=== PATIENT | female | born 1975 | race Caucasian/White ===

== ENCOUNTER → 2020-07-08 12:37 | Outpatient (REF) | payer MEDICAID, SELFPAY | LOC: HO.SL 12:37 | PROVIDERS: PCP Registered Nurse; Visit Provider Registered Nurse | DX: G47.30 Sleep apnea, unspecified (principal); R06.83 Snoring; E66.01 Morbid (severe) obesity due to excess calories; K21.9 Gastro-esophageal reflux disease without esophagitis | CPT/HCPCS: 95806 ==

== ENCOUNTER 2022-10-16 14:59 | Emergency (ER) | payer MEDICAID, SELFPAY ==
--- NOTE | ~2022-10-16 | CT_ITS ---
EXAMINATION: CT ABDOMEN AND PELVIS WITH CONTRAST CLINICAL INFORMATION: Abdominal pain COMPARISON: 01/19/2019 TECHNIQUE: Multidetector volumetric images were obtained from the superior aspect of the liver through the pubic symphysis following administration 85 mL of Omnipaque 350 intravenous contrast. Sagittal and coronal reformatted images were obtained on the technologist's workstation. Oral contrast: No This CT examination was performed using dose optimization techniques as appropriate, variously including the following: *Automated exposure control *Adjustment of mA and/or kV according to patient size (this includes techniques or standardized protocols for targeted exams where dose is matched to indication/reason for exam; i.e. extremities or head) *Use of iterative reconstruction technique DLP: 756 mGy-cm FINDINGS: LUNG BASES: The visualized lung bases are unremarkable. LIVER, GALLBLADDER, AND BILIARY TREE: The liver is normal in size, shape, and attenuation. No focal hepatic lesion or intrahepatic biliary ductal dilatation is present. Pneumobilia. This is decreased from prior. No ductal filling defect. Cholecystectomy. PANCREAS: Unremarkable. SPLEEN: Unremarkable. ADRENAL GLANDS: Unremarkable. KIDNEYS AND URETERS: The kidneys are normal in size, shape, and attenuation. No hydronephrosis, hydroureter, or calculi seen. No perinephric stranding. BLADDER: Unremarkable. GASTROINTESTINAL TRACT: The small and large bowel are unremarkable. The appendix is unremarkable. ABDOMINAL WALL: No significant hernia is appreciated. LYMPH NODES: Normal. VASCULAR: Normal caliber aorta with mild atherosclerotic calcification. PELVIC VISCERA: Uterus not seen. No adnexal mass. Peripherally enhancing right adnexal follicle. OSSEOUS STRUCTURES: No acute or suspicious osseous abnormality. Advanced degenerative change at L4-L5 with prominent sclerosis. CT/CT abdomen pelvis w IV con IMPRESSION: No acute findings in the abdomen or pelvis. No inflammatory changes. Fleischner guidelines were followed.
--- NOTE | ~2022-10-16 | US_ITS ---
EXAMINATION: US ABDOMEN LIMITED CLINICAL INFORMATION: Right upper quadrant pain. COMPARISON: CT abdomen pelvis 01/19/2019 TECHNIQUE: Real-time imaging of the right upper quadrant abdominal viscera. FINDINGS: PANCREAS: The pancreas appears unremarkable, without masses or ductal dilatation, with the exception of the tail which is obscured by bowel gas. LIVER: The liver is normal in size. The liver contour is normal. Parenchymal echogenicity is normal. No focal hepatic lesion. There is no intrahepatic biliary duct dilatation seen with pneumobilia is present as seen on prior CT exams. GALLBLADDER: Surgically absent. COMMON BILE DUCT: Normal in caliber measuring 1.2 cm in diameter. RIGHT KIDNEY: No hydronephrosis. No renal calculi or focal parenchymal lesions. The kidney measures 10.1 cm in maximum dimension. FREE FLUID: None. US/US abdomen limited IMPRESSION: Status post cholecystectomy. A cause for the patient's right upper quadrant pain has not been found.
[2022-10-16 17:26] VITALS: BP 133/63; PULSE 61; RESP 17; TEMP 36.4; O2SAT 98; BMI 37.4
[2022-10-16 18:30] VITALS: BP 142/69; PULSE 62; RESP 18; TEMP 36.7; O2SAT 98
--- NOTE | 2022-10-16 18:30 | MHC.EDTECH ---
pt blood drawn ,urine sample collected and sent to lab ,vitals sign re check .
[2022-10-16 18:32] LABS: MANUAL DIFF FLAG NO
[2022-10-16 18:43] LABS: UPreg QC Valid YES; Urine Pregnancy NEGATIVE (NEGATIVE)
[2022-10-16 18:46] LABS: Appearance Urine Turbid; Color Urine Orange; Glucose Urine UA Negative (Negative); Leukocyte Esterase Urine Trace (Negative); Nitrite Urine Negative (Negative); PH >= 9.0 (5.0-9.0); Specific Gravity - Urine 1.025 (1.005-1.025); UMIC TRIGGER UACC YES; Urine Blood Large (3+) (Negative); Urine Ketones Negative (Negative); Urine Protein 30 (1+) mg/dL (Neg-Trace)
[2022-10-16 18:49] LABS: Bacteria Urine 1+ (None Seen); Hyaline Casts Urine 0-2 /LPF (0-2); RBC Urine >20 /HPF (0-2); WBC Urine 0-5 /HPF (0-5)
[2022-10-16 18:52] LABS: Alanine Aminotransferase 10 U/L (0-31); Albumin Level 3.8 g/dL (3.5-5.0); Alkaline Phosphatase 61 U/L (39-117); Anion Gap 11 (12-20); Aspartate Amino Transferase 12 U/L (5-31); Bilirubin Direct 0.2 mg/dL (0.0-0.5); Bilirubin Total 0.7 mg/dL (0.0-1.0); Blood Urea Nitrogen 14 mg/dL (9-16); Calcium 8.6 mg/dL (8.4-10.2); Carbon Dioxide 23 mmol/L (22-29); Chloride 111 mmol/L (96-108); Creatinine Clr Calc Pharmacy 111.4; Estimated Glomerular Filt Rate > 60; Glucose Random 109 mg/dL (60-115); Lipase 18 U/L (8-78); Potassium 4.3 mmol/L (3.3-5.1); Sodium 141 mmol/L (135-145); Total Protein 6.9 g/dL (6.5-8.0)
[2022-10-16 19:00] LABS: Basophils Absolute Auto 0.1 X10*3/uL (0.0-0.2); Basophils Percent Auto 0.7 % (0-2); Eosinophils Absolute Auto 0.4 X10*3/uL (0.0-0.4); Eosinophils Percent Auto 4.2 % (0-4); Hematocrit 43.7 % (37.0-47.0); Hemoglobin 14.5 g/dl (12.0-16.0); Imm Gran Abs Auto 0.05 X10*3/uL (0.00-0.03); Imm Gran Pct Auto 0.5 % (0.0-0.4); Mean Corpuscular HGB Conc 33.2 g/dl (31.0-35.0); Mean Corpuscular Hemoglobin 30.6 pg (27.0-33.0); Mean Corpuscular Volume 92.2 fL (80.0-98.0); Mean Platelet Volume 11.2 fL (9.4-12.3); Monocytes Absolute Auto 0.8 X10*3/uL (0.1-1.2); Monocytes Percent Auto 8.3 % (2-11); Neutrophils Absolute Auto 4.1 x10*3/uL (2.0-8.3); Neutrophils Percent Auto 43.3 % (45-73); Platelet Count 193 X10*3/uL (160-400); Red Blood Count 4.74 X10*6/uL (4.20-5.50); Red Cell Distribution Width 12.9 % (11.0-16.0); White Blood Count 9.4 X10*3/uL (4.8-10.8)
--- NOTE | 2022-10-17 03:38 | ED.ABDPAIN ---
HPI - Abdominal Pain General Chief Complaint: Abdominal Pain Stated Complaint: vomiting,right lower quad pain Time Seen by Provider: 10/17/22 03:29 History of Present Illness HPI narrative: Patient is a 47-year-old female presented today with having abdominal pain. The abdominal pain is over the entire abdomen. It is associated with nausea. Generalized malaise. It is worse over the right upper quadrant. Patient is status post cholecystectomy many years ago. Nausea vomiting. It is not related with food intake. No history of bowel obstruction in the past. Patient from home. No chest pain or shortness of breath no diaphoresis. No leg swelling. Related Data Previous Rx's Medication Instructions Recorded ondansetron 4 mg disintegrating 4 mg PO TID PRN nausea and 10/17/22 tablet vomiting 5 days #10 tabs Allergies Allergy/AdvReac Type Severity Reaction Status Date / Time azithromycin [AZITHROMYCIN] Allergy Severe ANGIOEDEMA Unverified 01/29/20 18:19 pork derived (porcine) Allergy Unknown HIVES Unverified 01/29/20 18:19 [PORK DERIVED (PORCINE)] topiramate [From TOPAMAX] Allergy Unknown HIVES Unverified 01/29/20 18:19 tramadol [TRAMADOL] Allergy Unknown CONVULSIONS Unverified 01/29/20 18:19 Review of Systems Review of Systems Positive abdominal pain mainly over the entire abdomen worse in the epigastric area Yes all other systems are reviewed and are negative PMFSH Past Medical History Attestation statement: The following information was validated with the patient. Social History Social History Alcohol intake: never Smoked in Last 30 Days: Yes Use of substances other than those prescribed or required for medical reasons: No Advance Directives: No Advance Directives Information Provided: No Patient : No Physical Exam ED Vital Signs: Vital Signs - 24 hr 10/16/22 17:26 10/16/22 18:30 10/17/22 04:36 Temperature 97.6 F 98.1 F 97.9 F Pulse Rate 61 62 49 L Respiratory Rate 17 18 16 Blood Pressure 133/63 142/69 H 132/81 Pulse Oximetry 98 98 98 Oxygen Delivery Method Room Air Room Air Room Air BMI result Body Mass Index 37.4 Appearance: Alert. Oriented X3. No acute distress. Eyes: Pupils equal, round and reactive to light. ENT: Pharynx normal. Neck: Normal inspection. Neck supple. No lymph nodes noted. No crepitus CVS: Normal heart rate and rhythm. Pulses normal. Normal S1 and S2 Respiratory: No respiratory distress. Breath sounds normal. No Wheezing. No rales Abdomen: Soft and nontender. No rigidity. No distention. good BS x4 Skin: Skin warm and dry. Normal skin color. Normal skin turgor. Extremities: No lower extremity edema. Neurovascular intact to all extremities. No Lacerations. No Rash Neuro: Oriented X 3. No motor deficit. No sensory deficit. Moving all extermities. No slurred speech Medical Decision Making Medical Decision Making [facility] Narrative: Patient complaining of abdominal pain getting worse. Patient's lipase is 18 there is no evidence for pancreatitis. LFTs are normal. Patient's urine showed large amount of RBC but no signs of infection. Her urine test was negative no related issues. CT scan of the abdomen pelvis showed no acute finding no obstruction no abscess no perforation. No diverticulitis no kidney stones. Will discharge patient home. Close follow-up on an outpatient basis. Differential Diagnosis Kidney stone, diverticulitis, biliary issues, obstruction, abscess, perforation Lab Data [facility] Lab Attestation statement: I reviewed the patient's lab results. 10/16/22 18:28 10/16/22 18:28 Labs: Lab Results 10/16/22 10/16/22 10/16/22 Range/Units 18:28 18:28 18:28 WBC 9.4 (4.8-10.8) X10*3/uL RBC 4.74 (4.20-5.50) X10*6/uL Hgb 14.5 (12.0-16.0) g/dl Hct 43.7 (37.0-47.0) % MCV 92.2 (80.0-98.0) fL MCH 30.6 (27.0-33.0) pg MCHC 33.2 (31.0-35.0) g/dl RDW 12.9 (11.0-16.0) % Plt Count 193 (160-400) X10*3/uL MPV 11.2 (9.4-12.3) fL Immature Gran % (Auto) 0.5 H (0.0-0.4) % Neut % (Auto) 43.3 L (45-73) % Lymph % (Auto) 43.0 H (20-40) % [place] % (Auto) 8.3 (2-11) % Eos % (Auto) 4.2 H (0-4) % Baso % (Auto) 0.7 (0-2) % Lymph # (Auto) 4.0 (1.2-4.9) X10*3/uL [place] # (Auto) 0.8 (0.1-1.2) X10*3/uL Eos # (Auto) 0.4 (0.0-0.4) X10*3/uL Baso # (Auto) 0.1 (0.0-0.2) X10*3/uL Abs Immat Gran (auto) 0.05 H (0.00-0.03) X10*3/uL Absolute Neuts (auto) 4.1 (2.0-8.3) x10*3/uL Absolute Nucleated RBC 0.000 (0.0-0.012) X10*3/uL Nucleated RBC % (auto) 0.0 (0.0-0.2) /100WBC Sodium 141 (135-145) mmol/L Potassium 4.3 (3.3-5.1) mmol/L Chloride 111 H (96-108) mmol/L Carbon Dioxide 23 (22-29) mmol/L Anion Gap 11 L (12-20) BUN 14 (9-16) mg/dL Creatinine 0.65 (0.5-1.4) mg/dL Estim Creat Clear Calc 111.4 Estimated GFR > 60 Random Glucose 109 (60-115) mg/dL Calcium 8.6 (8.4-10.2) mg/dL Total Bilirubin 0.7 (0.0-1.0) mg/dL Direct Bilirubin 0.2 (0.0-0.5) mg/dL AST 12 (5-31) U/L ALT 10 (0-31) U/L Alkaline Phosphatase 61 (39-117) U/L Total Protein 6.9 (6.5-8.0) g/dL Albumin 3.8 (3.5-5.0) g/dL Lipase 18 (8-78) U/L Urine Color [place] Urine Appearance Turbid Urine pH >= 9.0 (5.0-9.0) Ur Specific [place] 1.025 (1.005-1.025) Urine Protein 30 (1+) H (Neg-Trace) mg/dL Urine Glucose (UA) Negative (Negative) mg/dL Urine Ketones Negative (Negative) mg/dL Urine Blood Large (3+) H (Negative) Urine Nitrite Negative (Negative) Ur Leukocyte Esterase Trace H (Negative) Urine RBC >20 H (0-2) /HPF Urine WBC 0-5 (0-5) /HPF Ur Squamous Epith Cells 6-10 (0-2) /HPF Urine Bacteria 1+ (None Seen) Hyaline Casts 0-2 (0-2) /LPF Urine Test (NEGATIVE) 10/16/22 Range/Units 18:28 WBC (4.8-10.8) X10*3/uL RBC (4.20-5.50) X10*6/uL Hgb (12.0-16.0) g/dl Hct (37.0-47.0) % MCV (80.0-98.0) fL MCH (27.0-33.0) pg MCHC (31.0-35.0) g/dl RDW (11.0-16.0) % Plt Count (160-400) X10*3/uL MPV (9.4-12.3) fL Immature Gran % (Auto) (0.0-0.4) % Neut % (Auto) (45-73) % Lymph % (Auto) (20-40) % [place] % (Auto) (2-11) % Eos % (Auto) (0-4) % Baso % (Auto) (0-2) % Lymph # (Auto) (1.2-4.9) X10*3/uL [place] # (Auto) (0.1-1.2) X10*3/uL Eos # (Auto) (0.0-0.4) X10*3/uL Baso # (Auto) (0.0-0.2) X10*3/uL Abs Immat Gran (auto) (0.00-0.03) X10*3/uL Absolute Neuts (auto) (2.0-8.3) x10*3/uL Absolute Nucleated RBC (0.0-0.012) X10*3/uL Nucleated RBC % (auto) (0.0-0.2) /100WBC Sodium (135-145) mmol/L Potassium (3.3-5.1) mmol/L Chloride (96-108) mmol/L Carbon Dioxide (22-29) mmol/L Anion Gap (12-20) BUN (9-16) mg/dL Creatinine (0.5-1.4) mg/dL Estim Creat Clear Calc Estimated GFR Random Glucose (60-115) mg/dL Calcium (8.4-10.2) mg/dL Total Bilirubin (0.0-1.0) mg/dL Direct Bilirubin (0.0-0.5) mg/dL AST (5-31) U/L ALT (0-31) U/L Alkaline Phosphatase (39-117) U/L Total Protein (6.5-8.0) g/dL Albumin (3.5-5.0) g/dL Lipase (8-78) U/L Urine Color Urine Appearance Urine pH (5.0-9.0) Ur Specific [place] (1.005-1.025) Urine Protein (Neg-Trace) mg/dL Urine Glucose (UA) (Negative) mg/dL Urine Ketones (Negative) mg/dL Urine Blood (Negative) Urine Nitrite (Negative) Ur Leukocyte Esterase (Negative) Urine RBC (0-2) /HPF Urine WBC (0-5) /HPF Ur Squamous Epith Cells (0-2) /HPF Urine Bacteria (None Seen) Hyaline Casts (0-2) /LPF Urine Test NEGATIVE (NEGATIVE) Medications Administered Discontinued Medications Generic Name Dose Route Start Last Admin Trade Name Freq PRN Reason Stop Dose Admin Hydromorphone HCl 0.5 mg 10/17/22 03:37 10/17/22 03:55 Hydromorphone Hcl 0.5 Mg/0.5 Ml Syringe IVPUSH 10/17/22 03:38 0.5 mg ONCE ONE Administration Protocol Sodium Chloride 1,000 mls @ 999 mls/hr 10/17/22 03:45 10/17/22 07:00 Ns IV 10/17/22 04:45 Infused .Q1H1M IVELISSE Infusion Iohexol 85 ml 10/17/22 06:21 10/17/22 06:22 Iohexol 350 Mg/Ml 100 Ml Infus..Btl IV 10/17/22 06:22 85 ml ONCE ONE Administration Ondansetron HCl 4 mg 10/17/22 03:36 10/17/22 03:54 Ondansetron Hcl 4 Mg/2 Ml Vial IVPUSH 10/17/22 03:37 4 mg ONCE ONE Administration Discharge Plan Discharge Clinical Impression: Abdominal pain Patient Disposition: Home, Self-Care Instructions: Abdominal Pain (ED) Prescriptions: New ondansetron 4 mg tablet,disintegrating 4 mg PO TID PRN (Reason: nausea and vomiting) 5 Days Qty: 10 0RF Referrals: [facility] [Primary Care Provider] - 10/19/22 Stand Alone Forms: Work/School Release
[2022-10-17] MEDS: ondansetron HCL 4 MG/2 ML VIAL IVPUSH (03:54)
[2022-10-17] MEDS: 0.9 % Sodium Chloride 1,000 ML 999 ML IV (03:54)
[2022-10-17] MEDS: HYDROmorphone HCl 0.5 MG/0.5 ML SYRINGE IVPUSH (03:55)
--- NOTE | 2022-10-17 03:58 | PC.NURSE ---
Iv placed and medicated per jul, notified WESTLEY castillo
[2022-10-17 04:36] VITALS: BP 132/81; PULSE 49; RESP 16; TEMP 36.6; O2SAT 98
[2022-10-17] MEDS: iohexoL 350 MG/ML 100 ML INFUS..BTL 85 ML IV (06:22)
[2022-10-17 08:10] VITALS: BP 145/77
== END 2022-10-17 08:09 | disposition home or self-care (01) ==
PROVIDERS: Emergency Medicine; Physician Assistant Medical; Emergency Provider Emergency Medicine Emergency Medical Services
DX: R10.31 Right lower quadrant pain (principal); R11.2 Nausea with vomiting, unspecified
CPT/HCPCS: 36415; 74177; 76705; 80048; 80076; 81001; 81025; 83690; 85025; 96361; 96374; 96375; 99284; J1170; J2405; Q9967

== ENCOUNTER 2022-12-19 11:17 | Outpatient (REF) | payer MEDICAID, SELFPAY ==
[2022-12-19 13:22] LABS: MANUAL DIFF FLAG NO
[2022-12-19 13:58] LABS: Basophils Absolute Auto 0.1 X10*3/uL (0.0-0.2); Basophils Percent Auto 0.9 % (0-2); Eosinophils Absolute Auto 0.2 X10*3/uL (0.0-0.4); Eosinophils Percent Auto 3.6 % (0-4); Hematocrit 43.3 % (37.0-47.0); Imm Gran Abs Auto 0.01 X10*3/uL (0.00-0.03); Imm Gran Pct Auto 0.2 % (0.0-0.4); Lymphocytes Absolute Auto 2.7 X10*3/uL (1.2-4.9); Lymphocytes Percent Auto 42.4 % (20-40); Mean Corpuscular HGB Conc 32.3 g/dl (31.0-35.0); Mean Corpuscular Hemoglobin 30.3 pg (27.0-33.0); Mean Corpuscular Volume 93.7 fL (80.0-98.0); Monocytes Absolute Auto 0.4 X10*3/uL (0.1-1.2); Monocytes Percent Auto 6.4 % (2-11); Neutrophils Percent Auto 46.5 % (45-73); Platelet Count 179 X10*3/uL (160-400); Red Blood Count 4.62 X10*6/uL (4.20-5.50); Red Cell Distribution Width 12.8 % (11.0-16.0); White Blood Count 6.4 X10*3/uL (4.8-10.8)
[2022-12-19 14:15] LABS: Cholesterol 187 mg/dL; HDL Cholesterol 52 mg/dL; LDL Cholesterol Calculated 123 mg/dl; Triglycerides 61 mg/dL
== END 2022-12-19 11:18 | disposition home or self-care (01) ==
LOC: HO.HHCL 11:17
PROVIDERS: Visit Provider Registered Nurse
DX: R00.2 Palpitations (principal); E78.5 Hyperlipidemia, unspecified
CPT/HCPCS: 36415; 80061; 85025

== ENCOUNTER 2023-01-23 16:10 | Outpatient (REF) | payer MEDICAID, SELFPAY ==
--- NOTE | ~2023-01-23 | MM_ITS ---
EXAMINATION: MM SCREENING DIGITAL BREAST TOMOSYNTHESIS, BILATERAL CLINICAL INFORMATION: Screening. Asymptomatic. COMPARISON: Mammography: This is a baseline study TECHNIQUE: Digital breast tomosynthesis is performed in both the craniocaudal and mediolateral oblique views along with computer-aided detection (CAD). Synthesized 2D images are generated from the tomosynthesis. FINDINGS: The breasts are almost entirely fatty (ACR BI-RADS breast composition Category a). There are no significant masses, abnormal calcifications, or other abnormalities. MM/MM tomosynthesis screening BI IMPRESSION: No mammographic evidence of malignancy. ASSESSMENT: BI-RADS BI-RADS 1 - Negative RECOMMENDATION: Routine annual mammography screening. 1 year F/U This examination should not preclude the clinical evaluation of a suspicious palpable abnormality. This patient's information was entered into a reminder system with a target due date for their next mammogram.
== END 2023-01-23 16:11 | disposition home or self-care (01) ==
LOC: HO.MAMMO 16:10
PROVIDERS: PCP Registered Nurse; Visit Provider Registered Nurse
DX: Z12.31 Encounter for screening mammogram for malignant neoplasm of breast (principal)
CPT/HCPCS: 77063; 77067

== ENCOUNTER → 2023-01-23 16:15 | Outpatient (BNV) | payer MEDICAID, SELFPAY | PROVIDERS: PCP Registered Nurse; Visit Provider Radiology Diagnostic Radiology | DX: Z12.31 Encounter for screening mammogram for malignant neoplasm of breast (principal) | CPT/HCPCS: 77063; 77067 ==

== ENCOUNTER 2023-03-24 15:04 | Emergency (ER) | payer SELFPAY ==
--- NOTE | ~2023-03-24 | CT_ITS ---
EXAMINATION: CT HEAD WITHOUT CONTRAST CLINICAL INFORMATION: Headache. COMPARISON: CT head 12/06/2018. TECHNIQUE: Contiguous axial imaging was performed from the skull base to vertex without intravenous administration of contrast. This CT examination was performed using dose optimization techniques as appropriate, variously including the following: *Automated exposure control *Adjustment of mA and/or kV according to patient size (this includes techniques or standardized protocols for targeted exams where dose is matched to indication/reason for exam; i.e. extremities or head) *Use of iterative reconstruction technique DLP: 780 mGy-cm FINDINGS: There is no acute intracranial hemorrhage or abnormal extra-axial collection. No intracranial mass effect or midline shift. Lateral and third ventricles are normal. No hydrocephalus. Boland-white matter differentiation is preserved and there is no evidence of acute territorial infarct. The calvarium and skull base are intact. Mastoid air cells and middle ear cavities are well aerated. No active paranasal sinus disease. Globes and orbits are grossly symmetric. CT/CT head/brain wo IV con IMPRESSION: Normal CT scan of the head.
[2023-03-24 15:26] VITALS: BP 125/81; PULSE 63; RESP 18; TEMP 36.6; O2SAT 98; BMI 37.7
--- NOTE | 2023-03-24 15:27 | ED.WOUNDLAC ---
HPI - Wound/Laceration General Chief Complaint: Wound/Laceration Stated Complaint: laceration forehead Time Seen by Provider: 03/24/23 16:37 Source: patient Mode of arrival: ambulatory Limitations: no limitations History of Present Illness HPI narrative: patient is a 47-year-old female who presents to the emergency department for evaluation after head injury. She states she was getting out of the car when she accidentally struck her head on the door. There was no loss consciousness. She states that since this occurred earlier today she has been having intermittent dizziness and blurred vision. Overall her symptoms have significantly improved, reports mild dizziness most notably if she moves position to fast. She reports localized pain to the laceration on her forehead above the left brow. She denies use of anticoagulants, or known coagulation disorders. Denies neck pain or neck stiffness. Related Data Previous Rx's Medication Instructions Recorded ondansetron 4 mg disintegrating 4 mg PO TID PRN nausea and 10/17/22 tablet vomiting 5 days #10 tabs Allergies Allergy/AdvReac Type Severity Reaction Status Date / Time azithromycin [AZITHROMYCIN] Allergy Severe ANGIOEDEMA Unverified 01/29/20 18:19 pork derived (porcine) Allergy Unknown HIVES Unverified 01/29/20 18:19 [PORK DERIVED (PORCINE)] topiramate [From TOPAMAX] Allergy Unknown HIVES Unverified 01/29/20 18:19 tramadol [TRAMADOL] Allergy Unknown CONVULSIONS Unverified 01/29/20 18:19 Review of Systems Review of Systems: Yes all other systems are reviewed and are negative PMFSH Past Medical History Attestation statement: The following information was validated with the patient. Source: old records reviewed Social History Social History Alcohol intake: never Physical Exam Vital Signs: Vital Signs: Last Vital Signs Temp 97.9 F 03/24/23 15:26 Pulse 63 03/24/23 15:26 Resp 18 03/24/23 15:26 BP 125/81 03/24/23 15:26 Pulse Ox 98 03/24/23 15:26 O2 Del Method Room Air 03/24/23 15:26 BMI result Body Mass Index 37.7 Appearance: Alert.?Oriented to person, place and time. No acute distress.?Normal affect. Head: normocephalic. 2 cm linear superficial laceration to the forhead Eyes: Pupils equal, round and reactive to light.? EOMI. No nystagmus. ENT: Pharynx normal.?? Neck: Normal inspection.? Neck supple.?? CVS: Heart sounds normal. Normal heart rate and rhythm.? Pulses normal.?? Respiratory: No respiratory distress.? Lung sounds clear to auscultation bilaterally?? Abdomen: Soft and non-tender. Normoactive bowel sounds. ?? Skin: Skin warm and dry.? Normal skin color.? Extremities: No lower extremity edema.? Neuro: Moves all extremities spontaneously. Sensation intact bilaterally. CN II-XII intact. No focal neuro deficits. Ambulates with normal steady gait. Course Course Course Narrative: This is a rapid medical exam. deferred additional HPI, ROS, PE to primary provider. 47 yo female with history of HTN, depression, migraines, seizures here with laceration to her forehead from the car door. No LOC. Since injury has had blurry vision/HERNANDEZ. Will obtain CT head. Superficial lac to the head, bleeding controlled. VSS Medical Decision Making Medical Decision Making MDM Narrative: patient is a 47-year-old female who presents to the emergency department for evaluation after a head injury with laceration. Has no focal neurological deficits upon examination, her post injury symptoms have nearly resolved, she is ambulatory with a steady gait. CT of the head is without acute intracranial pathology , not consistent with ICH, SDH. Laceration to the forehead is superficial, not amenable to repair with sutures, skin adhesive applied after cleansing with saline. Reports date of last tetanus vaccination was 3 years ago. Overall she is well-appearing, nontoxic, ambulatory with a steady gait. At this time feel that she is stable for discharge home, outpatient follow-up with her primary care provider as needed. Discussed worrisome signs and symptoms that would warrant re-evaluation in the emergency department. All questions answered. Differential Diagnosis Differential Diagnoses: The differential diagnosis associated with the presentation includes ( as noted above) Independent Interpretation I performed an independent interpretation of an: CT Scan Radiology Impression Discussion of test interpretation with radiology: I have reviewed the radiologist's reading. Radiologist Impression: CT/CT head/brain wo IV con IMPRESSION: Normal CT scan of the head. Independent Historian Clinical information obtained from an independent historian. History obtained from or confirmed by: Other ( daughter present at bedside who confirms history) External Record Review External record reviewed: Outpatient record Prescription Management I considered prescription management with: Pain Medication ( acetaminophen/ibuprofen) Discharge Plan Discharge Clinical Impression: Laceration, Closed head injury Patient Disposition: Home, Self-Care Instructions: Head Injury (ED), Skin Adhesive Care (ED) Prescriptions: No Action ondansetron 4 mg tablet,disintegrating 4 mg PO TID PRN (Reason: nausea and vomiting) 5 Days Qty: 10 0RF Referrals: Heide Priest, [facility] [Primary Care Provider] -
--- OUTSIDE RECORDS SUMMARY | 2023-03-24 17:22 | XMS_ITS | Continuity of Care Document ---
Author Name Unknown Organization [facility] ter Address [address] [place] [id number]- Care Team Providers Care Mission Commander Name Role Phone Rubén DUNLAP, Abel Frazier Primary Care Physician Encounter [facility] [place](s): 01/20/20 - 02/25/[address] [address]- [facility] Attending Physician: Johann Harper MD Admitting Physician: Johann Harper MD Referring Physician: Johann Harper MD Allergies, Adverse Reactions, Alerts Substance Reaction Severity Status azithromycin Anaphylaxis Active Topamax HIVES Active Pork HIVES Active traMADol caused seizures Persistent Severe Active Immunizations Given and Recorded Vaccine Date Status Refusal Reason influenza virus vaccine, inactivated 1 05/26/18 Gi eliud pneumococcal 23-valent vaccine 03/12/11 Given 1Early/Late Reason: Med Not Available Medications Advair Diskus 100 mcg-50 mcg inhalation powder 1, puffs, Inhalation, 2 times a day, # 1 application, Refills 1, Tot. Refills 1, Maintenance, 08/02/18 8:36:15 EDT, Inhaler, Print Requisition Start Date: 08/02/18 Status: Ordered albuterol 0.083% inhalation solution 3 mL = 2.5 mg, Inhalation, Every 6 hours, PRN Wheezing/Shortness of Breath, # 360 mL, 0 Refills, Maintenance, 03/13/11 15:01:20 EDT Start Date: 03/13/11 Status: Ordered cetirizine 10 mg oral capsule 1 capsule = 10 mg, By Mouth, Daily, 0 Refills, Maintenance, 02/09/19 17:55:55 EDT Start Date: 02/09/19 Status: Ordered Duloxetine = 20 mg, By Mouth, Daily at bedtime, 0 Refills, Maintenance, 12/03/18 8:53:39 EDT Start Date: 12/03/18 Status: Ordered Keppra 500 mg oral tablet 1 tablet = 500 mg, By Mouth, 2 times a day, # 60 tablet, 11 Refills, Maintenance, 09/25/19 10:56:00EDT, Tablet, [facility], 155, cm, 02/11/19 7:33:00 EDT, Height, 97.8, kg, 02/09/19 17:43:00 EDT, Dry Weight Start Date: 09/25/19 Stop Date: 09/19/20 Status: Ordered ProAir HFA 90 mcg/inh inhalation aerosol with adapter See Instructions, inhale 2 puffs by mouth every 4 to 6 hours if needed, # 1 each, Refills 1, Tot. Refills 1, Maintenance, 08/02/18 8:35:52 EDT, Instructions Replace Required Details Inhaler, Print Requisition Start Date: 08/02/18 Status: Ordered risperidone 0.5 mg oral tablet 1 tablet = 0.5 mg, By Mouth, Daily in AM, # 14 tablet, 1 Refills, Maintenance, Tablet Start Date: 03/13/11 Stop Date: 04/10/11 Status: Ordered trazodone 50 mg oral tablet 1 tablet = 50 mg, By Mouth, Daily at bedtime, PRN Insomnia, # 14 tablet, 1 Refills, Maintenance, Tablet Start Date: 03/13/11 Stop Date: 04/10/11 Status: Ordered Problem List Condition Effective Dates Status Health Status Inform ant Anxiety and depression(Confirmed) Active Asthma(Confirmed) Active Kidney stones, calcium oxalate(Confirmed) Active Chronic back pain(Confirmed) Active Depression(Confirmed) Active GERD (gastroesophageal reflu x disease)(Confirmed) Active Unstable angina(Confirmed) Active Seizure disorder(Confirmed) Active Social History Social History Type Response Smoking Status 10 or more cigarette s (1/2 pack or more)/day in last 30 days entered on: 05/27/18 Sex Female
--- OUTSIDE RECORDS SUMMARY | 2023-03-24 17:22 | XMS_ITS | Continuity of Care Document ---
Author Name Unknown Organization [facility] Address [address], [address] [place] [address]- Care Team Providers Care Community Engagement Specialist Name Role Phone Rubén DUNLAP, Abel Frazier Primary Care Physician Encounter [facility] Date(s): 12/15/19 - 01/14/20 [facility] [address], [address], [address] [place] [id number]- [facility] Attending Physician: Admcheyanne, [id number] Admitting Physician: Admtr, Ar8 Referring Physician: Admtr, Ar8 Allergies, Adverse Reactions, Alerts Substance Reaction Severity [...] tablet, 11 Refills, Maintenance, 09/25/19 10:56:00EDT, Tablet, [facility], 155, cm, 02/11/19 7:33:00 EDT, Height, [...]
--- OUTSIDE RECORDS SUMMARY | 2023-03-24 17:22 | XMS_ITS | Continuity of Care Document ---
Author Name Unknown Organization [facility] Address [address], [address], [address] [place] [id number]- Care Team Providers Care Tape Edge Machine Operator Name Role Phone Rubén DUNLAP, Abel Frazier Primary Care Physician Encounter [facility] Date(s): 10/04/20 - 11/03/20 [facility] [address], [address], [address] [place] [id number] Attending Physician: Admcheyanne, Paty Admitting Physician: Admtr, [id number] Referring Physician: Admtr, [...] 17:55:55 EDT Start Date: 02/09/19 Status: Ordered Depakote ER 500 mg oral tablet, extended release 2 tablet = 1,000 mg, By Mouth, Daily, # 60 tablet, 11 Refills, Maintenance, 03/08/20 8:48:00 EDT, [facility], 155, cm, 02/11/19 7:33:00 EDT, Height, 97.8, kg, 02/09/19 17:43:00 EDT, Dry Weight Start Date: 03/08/20 Stop Date: 03/03/21 Status: Ordered Duloxetine = 20 mg, By Mouth, Daily at bedtime, 0 Refills, Maintenance, 12/03/18 8:53:39 EDT Start Date: 12/03/18 Status: Ordered Keppra 500 mg oral tablet 1 tablet = 500 mg, By Mouth, 2 times a day, # 60 tablet, 2 Refills, Maintenance, 08/16/20 13:56:00 EDT, Tablet, [facility], 155, cm, 02/11/19 7:33:00 EDT, Height, 97.8, kg, 02/09/19 17:43:00 EDT, Dry Weight Start Date: 08/16/20 Stop Date: 11/14/20 Status: Ordered ProAir HFA 90 mcg/inh inhalation [...]
--- OUTSIDE RECORDS SUMMARY | 2023-03-24 17:22 | XMS_ITS | Continuity of Care Document ---
Author Name Unknown Organization [facility] Address [address] [facility], 3r d Floor, [address] [place] [id number]- Care Team Providers Care Business Operations Manager Name Role Phone Abel Montana MD Primary Care Physician Encounter [facility] [place] Date(s): 07/04/19 - 09/18/19 [facility] [address], 3[address] Floor, [address] [place] [id number]- [facility] Attending Physician: Johann Harper MD Admitting Physician: Johann Harpre MD Referring Physician: Abel Montana MD Allergies, Adverse Reactions, Alerts Substance Reaction [...] 8:53:39 EDT Start Date: 12/03/18 Status: Ordered ProAir HFA 90 mcg/inh inhalation [...] Date: 03/13/11 Stop Date: 04/10/11 Status: Ordered Topamax 50 mg oral tablet See Instructions, 1 tablet By Mouth 2 times a day x 1 week, then 2 bid, # 120 tablet, 11 Refills, Maintenance, 09/04/19 13:10:00 EDT, [facility], 155, cm, 02/11/19 7:33:00 EDT, Height, 97.8, kg, 02/09/19 17:43:00 EDT, Dry Weight Start Date: 09/04/19 Status: Ordered trazodone 50 mg oral tablet [...]
--- OUTSIDE RECORDS SUMMARY | 2023-03-24 17:23 | XMS_ITS | Continuity of Care Document ---
Author Name Unknown Organization [facility] Address [address] [facility], 3r d Floor, [address] [place] [id number]- Care Team Providers Care Cisco Engineer Name Role Phone Abel Montana MD Primary Care Physician Encounter [facility] [place] Date(s): 08/19/19 - 08/26/19 [facility] [address], 3[address], [address] [place] [id number]- [facility] Attending Physician: Johann Harper MD Referring Physician: Abel Montana MD Allergies, [...] Start Date: 02/09/19 Status: Ordered Depakote ER 250 mg oral tablet, extended release 3 tablet = 750 mg, By Mouth, Daily, # 90 tablet, 11 Refills, Maintenance, 08/19/19 9:11:00 EDT, [facility], 155, cm, 02/11/19 7:33:00 EDT, Height, 97.8, kg, 02/09/19 17:43:00 EDT,Dry Weight Start Date: 08/19/19 Stop Date: 08/13/20 Status: Ordered Duloxetine = 20 mg, By Mouth, Daily at bedtime, 0 Refills, Maintenance, 12/03/18 8:53:39 EDT Start Date: 12/03/18 Status: Ordered Keppra 250 mg oral tablet 1 tablet = 250 mg, By Mouth, 2 times a day, Increase Keppra 500mg bid to 750 BID, # 14 tablet, 0 Refills, Maintenance, 07/03/19 19:15:00 EST, Tablet, [facility], 155, cm, 02/11/19 7:33:00 EDT, Height, 97.8, kg, 02/09/19 17:43:00 EDT, Dry... Start Date: 07/03/19 Stop Date: 07/10/19 Status: Ordered Keppra 500 mg oral tablet 1 tablet = 500 mg, By Mouth, 2 times a day, # 14 tablet, 0 Refills, Maintenance, 07/03/19 19:17:00 EST, Tablet, [facility], 155, cm, 02/11/19 7:33:00 EDT, Height, 97.8, kg, 02/09/19 17:43:00 EDT, Dry Weight Start Date: 07/03/19 Stop Date: 07/10/19 Status: Ordered Keppra 500 mg oral tablet = 500 mg, By Mouth, 2 times a day, # 30 tablet, 1 Refills, Maintenance, 12/09/18 12:46:25 EDT, Tablet Start Date: 12/09/18 Stop Date: 02/07/19 Status: Ordered ProAir HFA 90 mcg/inh inhalation [...]
--- OUTSIDE RECORDS SUMMARY | 2023-03-24 17:23 | XMS_ITS | Continuity of Care Document ---
Author Name Unknown Organization [facility] Address [address] [facility], 3r d Floor, [address] [place] [phone]- Care Team Providers Care Mold Filling Operator Name Role Phone Abel Montana MD Primary Care Physician Encounter [facility] [id number] Date(s): 08/19/20 - 11/03/20 [facility] [address], 3[address] Floor, [address] [place] [id number] Attending Physician: Petar Mcgee Admitting Physician: Petar Mcgee Allergies, Adverse Reactions, Alerts Substance Reaction Severity [...] tablet, 11 Refills, Maintenance, 03/08/20 8:48:00 EDT, [facility], 155, cm, 02/11/19 7:33:00 EDT, [...] 2 Refills, Maintenance, 08/16/20 13:56:00 EDT, Tablet, [facility], 155, cm, 02/11/19 7:33:00 EDT, [...]
--- OUTSIDE RECORDS SUMMARY | 2023-03-24 17:23 | XMS_ITS | Continuity of Care Document ---
Author Name Unknown Organization [facility] ter Address [address] [place] [id number]- Care Team Providers Care Computer Support Analyst Name Role Phone Rubén DUNLAP, Abel Frazier Primary Care Physician Encounter [facility] Date(s): 10/01/20 - 12/30/[address] [address] Attending Physician: Johann Harper MD Referring Physician: Johann [...] tablet, 11 Refills, Maintenance, 03/08/20 8:48:00 EDT, [facility], 155, cm, 02/11/19 7:33:00 EDT, [...] day, # 60 tablet, 11 Refills, Maintenance, 12/13/20 10:09:00EDT, Tablet, [facility], 155, cm, 02/11/19 7:33:00 EDT, Height, 97.8, kg, 02/09/19 17:43:00 EDT, Dry Weight Start Date: 12/13/20 Stop Date: 12/08/21 Status: Ordered ProAir HFA 90 mcg/inh inhalation [...]
--- OUTSIDE RECORDS SUMMARY | 2023-03-24 17:23 | XMS_ITS | Continuity of Care Document ---
Author Name Unknown Organization [facility] ter Address [address] [place] [id number]- Care Team Providers Care Supervisor Soakers Name Role Phone Abel Montana MD Primary Care Physician Encounter [facility] Date(s): 07/03/19 - 07/03/[address] [address]- [facility] Encounter Diagnosis Diarrhea(Final) - 07/03/19 Discharge Disposition: A-D/C Home Attending Physician: Eh Lou DO Admitting Physician: Eh Lou DO Referring Physician: Not on Staff, Referring MD Allergies, Adverse Reactions, Alerts Substance Reaction [...] 0 Refills, Maintenance, 07/03/19 19:15:00 EST, Tablet, [facility], 155, cm, 02/11/19 7:33:00 EDT, Height, 97.8, kg, 02/09/19 17:43:00 EDT, Dry... Start Date: 07/03/19 Stop Date: 07/10/19 Status: Ordered Keppra 500 mg oral tablet 1 tablet = 500 mg, By Mouth, 2 times a day, # 14 tablet, 0 Refills, Maintenance, 07/03/19 19:17:00 EST, Tablet, [facility], 155, cm, 02/11/19 7:33:00 EDT, [...] Active Unstable angina(Confirmed) Active Seizure disorder(Confirmed) Active Results Radiology Reports * Exam Date Time Procedure Performing Provider Status 07/03/19 2:39 PM Chest 2 Views Frontal and Lat Alyssa De Los Santos; Auth (Verified) Notes: (Chest 2 Views Frontal and Lat) Reason For Exam: Traumatic Chest Pain;Other: RESULT: Chest 2 Views Frontal and Lat Chest 2 Views Frontal and Lat Refer to EMR; Reason: Other:; Traumatic Chest Pain; Clinical Question(s): Other:; Pneumothorax, Fracture; Hx of Present Illness: Pt coming from home after having a seizure lasting about 10 minutes, witnessed by her family. PT does not recall event. Pt states her last seizure was yesterday.; Other Objective Findings: Patient lethargic but oriented x 4. Speaking full clear sentences. Pt slightly COMPARISON: 02/09/2019 FINDINGS: LINES AND TUBES: None. LUNGS AND PLEURA: Clear lungs. Normal pulmonary vascularity. No pleural effusion. No pneumothorax. HEART, MEDIASTINUM AND SIDRA: Heart is normal in size. Normal mediastinal and hilar contour. BONES AND SOFT TISSUES: No acute abnormality. IMPRESSION: Normal chest. WSN: [id number] Dictated By: Sathish Cintron MD Dictated Date/Time: 07/03/19 2:48 pm Reviewed By: Sathish Cintron MD Signed By: Sathish Cintron MD Signed Date/Time: 07/03/19 2:48 pm Transcribed By: ADOLFO Transcribed Date/Time: 07/03/19 2:48 pm Vital Signs Most recent to oldest [Reference Range]: 1 2 Oxygen Saturation [94-100 %] 100 % (07/03/19 3:37 PM) 100 % (07/03/19 1:06 PM) Pulse Rate [55-90 bpm] 57 bpm (07/03/19 3:37 PM) 57 bpm (07/03/19 1:06 PM) Blood Pressure [90-138/55-84 mm Hg] 147/ 73mm Hg *H* (07/03/19 3:37 PM) 145/69mm Hg *H* (07/03/19 1:06 PM) Respiratory Rate [16-30 br/min] 18 br/mi n (07/03/19 3:37 PM) 16 br/min (07/03/19 1:06 PM) Temperature [96.8-100.4 DegF] 97.8 DegF (07/03/19 1:06 PM) Mode of Delivery (Oxygen) Room air (07/03/19 3:37 PM) Room air (07/03/19 1:06 PM) Blood pressure sites Arm, right (07/03/19 3:37 PM) Arm, right (07/03/19 1:06 PM) Temperature Route Oral (07/03/19 1:06 PM) Social History Social History Type Response Smoking Status 10 or more cigarette s (1/2 pack or more)/day in last 30 days entered on: 05/27/18 Sex Female
== END 2023-03-24 18:02 | disposition home or self-care (01) ==
PROVIDERS: Emergency Provider Student in an Organized Health Care Education/Training Program; PCP Registered Nurse
DX: S01.81XA Laceration without foreign body of other part of head, initial encounter (principal); S09.90XA Unspecified injury of head, initial encounter; W22.8XXA Striking against or struck by other objects, initial encounter; Y93.89 Activity, other specified; Y92.810 Car as the place of occurrence of the external cause; Y99.9 Unspecified external cause status
CPT/HCPCS: 70450; 99283; 99284

== ENCOUNTER 2023-05-22 00:14 | Emergency (ER) | payer OTHER, SELFPAY ==
--- NOTE | 2023-05-22 | ECG_ITS ---
Test Reason : CHEST PAIN Blood Pressure : / mmHG Vent. Rate : 048 BPM Atrial Rate : 048 BPM P-R Int : 160 ms QRS Dur : 078 ms QT Int : 462 ms P-R-T Axes : 041 031 048 degrees QTc Int : 412 ms Sinus bradycardia Otherwise normal ECG When compared with ECG of 07-DEC-2018 08:31, No significant change was found Referred By: Generic ED Physician Electronically Signed By:TYRONE BECERRA MD
--- NOTE | ~2023-05-22 | XR_ITS ---
EXAMINATION: XR CHEST, 2 VIEWS CLINICAL INFORMATION: Chest pain. COMPARISON: 01/20/2020 TECHNIQUE: PA and lateral views of the chest were obtained. FINDINGS: Subtle linear opacities at the bases are favored to correspond atelectasis. Mild consolidation at the right lung base cannot be excluded. No pneumothorax or pleural effusion. Cardiac and mediastinal contours are normal. Pulmonary vasculature is unremarkable. Cholecystectomy clips in the right upper quadrant no acute osseous findings. XR/XR chest 2V IMPRESSION: Linear opacities at the lung bases are favored to correspond to atelectasis. Mild consolidation at the right lung base cannot be excluded.
[2023-05-22 00:27] VITALS: BP 130/64; BP 140/90; PULSE 50; PULSE 56; RESP 14; O2SAT 100; O2SAT 98; BMI 40.0
[2023-05-22 00:33] VITALS: BP 130/64; PULSE 56; RESP 14; O2SAT 98
--- NOTE | 2023-05-22 00:35 | PC.NURSE ---
Pt presents to ED via EMS for evaluation of chest pain that started around 5:00 tonight when pt got home from work. Pt denies SOB, endorses nausea and pain radiating to the left shoulder. Pt is A&Ox4, GCS 15, with warm dry skin. States she is normally an every day smoker (cigarette and marijuana) but today didn't feel like it and hasn't smoked all day. Pt stated this is not something she regularly does. Pt took 2 baby aspirin around 6:00, pain continued and pt called 911 who instructed her to take 4 more baby aspirin. EMS placed a 20g IV in the left hand, gave 0.4mg nitroglycerin and approx 250mL Normal Saline. Pt is attached to nuclear monitoring technician, EKG obtained. Labs are being drawn now and pt is waiting ED provider.
[2023-05-22 00:42] LABS: MANUAL DIFF FLAG NO
[2023-05-22 00:45] LABS: Basophils Absolute Auto 0.1 X10*3/uL (0.0-0.2); Basophils Percent Auto 0.8 % (0-2); Eosinophils Absolute Auto 0.3 X10*3/uL (0.0-0.4); Eosinophils Percent Auto 3.4 % (0-4); Hematocrit 42.6 % (37.0-47.0); Hemoglobin 13.9 g/dl (12.0-16.0); Imm Gran Abs Auto 0.01 X10*3/uL (0.00-0.03); Imm Gran Pct Auto 0.1 % (0.0-0.4); Lymphocytes Absolute Auto 3.2 X10*3/uL (1.2-4.9); Lymphocytes Percent Auto 42.1 % (20-40); Mean Corpuscular HGB Conc 32.6 g/dl (31.0-35.0); Mean Platelet Volume 10.4 fL (9.4-12.3); Monocytes Absolute Auto 0.7 X10*3/uL (0.1-1.2); Monocytes Percent Auto 8.6 % (2-11); Neutrophils Absolute Auto 3.4 x10*3/uL (2.0-8.3); Platelet Count 181 X10*3/uL (160-400); Red Blood Count 4.63 X10*6/uL (4.20-5.50); Red Cell Distribution Width 12.8 % (11.0-16.0); White Blood Count 7.6 X10*3/uL (4.8-10.8)
[2023-05-22 00:54] LABS: Anion Gap 11 (12-20); Blood Urea Nitrogen 19 mg/dL (9-16); Calcium 8.9 mg/dL (8.4-10.2); Carbon Dioxide 24 mmol/L (22-29); Chloride 110 mmol/L (96-108); Creatinine Clr Calc Pharmacy 97.8; Estimated Glomerular Filt Rate > 60; Glucose Random 100 mg/dL (60-115); Potassium 3.9 mmol/L (3.3-5.1); Sodium 141 mmol/L (135-145)
[2023-05-22 01:04] LABS: Troponin-I High Sensitivity < 2.7 ng/L (<3.5-17.0)
--- NOTE | 2023-05-22 01:10 | ED_ITS ---
HPI - Chest Pain General Chief Complaint: Chest Pain Stated Complaint: CHEST PAIN Time Seen by Provider: 05/22/23 01:03 Source: patient Mode of arrival: EMS Limitations: no limitations History of Present Illness HPI narrative: patient is a 47-year-old female who presents emergency department for evaluation chest pain. She reports sudden onset of pain to the left anterior chest midclavicular line at approximately her 17:00 described as a stabbing sensation. The pain radiates upward to the left shoulder and proximal arm. Pain has been constant since its onset. She denies any exacerbating or alleviating factors. She took for baby aspirin prior to arrival. EMS administered nitro sublingual which she reports pain no change in her chest pain. She denies associated dizziness, lightheadedness, URI symptoms, cough, shortness of breath, back pain, nausea, vomiting, abdominal pain, numbness or tingling of her extremities. She does report history of hypertension depression and migraine headaches. When asked about family history she reports her dad of sudden at age 50 and her mother suffered from a massive heart attack at the age of 45. Related Data Previous Rx's Medication Instructions Recorded ondansetron 4 mg disintegrating 4 mg PO TID PRN nausea and 10/17/22 tablet vomiting 5 days #10 tabs Allergies Allergy/AdvReac Type Severity Reaction Status Date / Time azithromycin [AZITHROMYCIN] Allergy Severe ANGIOEDEMA Unverified 01/29/20 18:19 pork derived (porcine) Allergy Unknown HIVES Unverified 01/29/20 18:19 [PORK DERIVED (PORCINE)] topiramate [From TOPAMAX] Allergy Unknown HIVES Unverified 01/29/20 18:19 tramadol [TRAMADOL] Allergy Unknown CONVULSIONS Unverified 01/29/20 18:19 Review of Systems 2 Review of Systems: Yes all other systems are reviewed and are negative PMFSH Past Medical History Attestation statement: The following information was validated with the patient. Source: old records reviewed Onset Date is defined in the Problem List Problems that require an onset date and time if occurred within 24 hrs of arrival to the ED Aortic Dissection and Rupture; Neurologic impairment; Cardiopulmonary Arrest; Endotracheal Intubation; Insertion or Replacement of Mechanical Circulatory Assist Device Social History Social History Alcohol intake: never Smoked in Last 30 Days: Yes Use of substances other than those prescribed or required for medical reasons: Yes Substance Use Type: Marijuana Substance Use Frequency: Daily Advance Directives: No Advance Directives Information Provided: Yes Patient : No Physical Exam 2 Vital Signs: Vital Signs: Last Vital Signs Temp 98.5 F 05/22/23 02:17 Pulse 55 05/22/23 04:03 Resp 14 05/22/23 04:03 BP 131/66 05/22/23 04:03 Pulse Ox 99 05/22/23 04:03 O2 Del Method Room Air 05/22/23 04:03 BMI result Body Mass Index 40.0 Appearance: Alert.?Oriented to person, place and time. No acute distress.?Normal affect. Eyes: Pupils equal, round and reactive to light.? ENT: Pharynx normal.?? Neck: Normal inspection.? Neck supple.?? CVS: Heart sounds normal. Normal heart rate and rhythm.? Pulses normal.?? Respiratory: No respiratory distress.? Lung sounds clear to auscultation bilaterally?? Abdomen: Soft and non-tender. Normoactive bowel sounds. No pulsatile mass.?? Skin: Skin warm and dry.? Normal skin color.? ?? Extremities: No lower extremity edema.? Neuro: Moves all extremities spontaneously. Sensation intact bilaterally. CN II- XII intact. No focal neuro deficits. Ambulates with normal steady gait. Course Reevaluation(s) Reevaluation #1: Patient signed out to ED attending Dr. Patton pending repeat troponin and re- evaluation Time: 01:54 Medications Administered Discontinued Medications Generic Name Dose Route Start Last Admin Trade Name Edmond PRN Reason Stop Dose Admin Al Hydroxide/Mg Hydroxide 30 ml 05/22/23 01:22 05/22/23 02:10 Magnesium Hydrox/Alum Hydrox 30 Ml Oral.Susp PO 05/22/23 01:23 30 ml ONCE ONE Administration Famotidine 20 mg 05/22/23 01:22 05/22/23 02:10 Famotidine 20 Mg Tablet PO 05/22/23 01:23 20 mg ONCE ONE Administration Lidocaine HCl 15 ml 05/22/23 01:22 05/22/23 02:10 Lidocaine Hcl Viscous 2 % 15 Ml Solution MUCOUS MEM 05/22/23 01:23 15 ml ONCE ONE Administration Medical Decision Making Medical Decision Making MDM Narrative: Patient is a 47-year-old woman with past medical history of hypertension depression migraines presented to emergency department for evaluation of chest pain as per HPI. At this time examination she appears overall well, nontoxic. No respiratory distress; No hypoxia or tachypnea. She is speaking clear full sentences. Chest pain normal reproducible, radiating to the shoulder. Unchanged with aspirin and nitro. Given she reports pain originating in the left lower chest/mid clavicular region will attempt GI cocktail. Will obtain CBC to evaluate for leukocytosis/ anemia, CMP and lipase to evaluate for abnormal electrolytes /abnormal renal function/ abnormal hepatic/biliary function, EKG and troponin to evaluate for ischemia/ACS. Chest x-ray to evaluate for consolidation/ infiltrate/ mass/ pulmonary congestion Two sets of cardiac enzyme was negative. Patient not in any acute distress. My interpretation of patient's EKG showed a sinus rhythm heart rate is 50 AK QRS QTC within normal limits is no acute ST segment elevation. Patient's pain atypical. She is 47 years old. She does have a history of hypertension. Her heart score so less than 3. Patient's chest x-ray was done. There is no evidence of pneumonia pneumothorax. Patient's history not consistent with PE. Will discharge patient home. Currently in stable condition. Differential Diagnosis Differential Diagnoses: The differential diagnosis associated with the presentation includes ( ACS, muscular pain, pleurisy, GERD, atypical chest pain) Admission/Observation Consideration of admission/observation: Escalation of care including admission/observation considered ( see narrative above and course narrative for further detail) Lab Data [facility] Lab Attestation statement: I reviewed the patient's lab results. CBC is without leukocytosis or anemia overall unremarkable. CMP and lipase overall unremarkable. High sensitive troponin below detectable limits. 05/22/23 00:38 05/22/23 00:38 Labs: Lab Results 05/22/23 05/22/23 Range/Units 00:38 03:35 WBC 7.6 (4.8-10.8) X10*3/uL RBC 4.63 (4.20-5.50) X10*6/uL Hgb 13.9 (12.0-16.0) g/dl Hct 42.6 (37.0-47.0) % MCV 92.0 (80.0-98.0) fL MCH 30.0 (27.0-33.0) pg MCHC 32.6 (31.0-35.0) g/dl RDW 12.8 (11.0-16.0) % Plt Count 181 (160-400) X10*3/uL MPV 10.4 (9.4-12.3) fL Immature Gran % (Auto) 0.1 (0.0-0.4) % Neut % (Auto) 45.0 (45-73) % Lymph % (Auto) 42.1 H (20-40) % [place] % (Auto) 8.6 (2-11) % Eos % (Auto) 3.4 (0-4) % Baso % (Auto) 0.8 (0-2) % Lymph # (Auto) 3.2 (1.2-4.9) X10*3/uL [place] # (Auto) 0.7 (0.1-1.2) X10*3/uL Eos # (Auto) 0.3 (0.0-0.4) X10*3/uL Baso # (Auto) 0.1 (0.0-0.2) X10*3/uL Abs Immat Gran (auto) 0.01 (0.00-0.03) X10*3/uL Absolute Neuts (auto) 3.4 (2.0-8.3) x10*3/uL Absolute Nucleated RBC 0.000 (0.0-0.012) X10*3/uL Nucleated RBC % (auto) 0.0 (0.0-0.2) /100WBC Sodium 141 (135-145) mmol/L Potassium 3.9 (3.3-5.1) mmol/L Chloride 110 H (96-108) mmol/L Carbon Dioxide 24 (22-29) mmol/L Anion Gap 11 L (12-20) BUN 19 H (9-16) mg/dL Creatinine 0.77 (0.5-1.4) mg/dL Estim Creat Clear Calc 97.8 Estimated GFR > 60 Random Glucose 100 (60-115) mg/dL Calcium 8.9 (8.4-10.2) mg/dL Total Bilirubin 0.6 (0.0-1.0) mg/dL Direct Bilirubin 0.2 (0.0-0.5) mg/dL AST 16 (5-31) U/L ALT 15 (0-31) U/L Alkaline Phosphatase 48 (39-117) U/L Troponin I High Sens < 2.7 < 2.7 (<3.5-17.0) ng/L Total Protein 6.8 (6.5-8.0) g/dL Albumin 3.7 (3.5-5.0) g/dL Lipase 14 (8-78) U/L Independent Interpretation I performed an independent interpretation of an: EKG and Plain X-Ray (Grossly negative) Interpretation: Rate: 48 Rhythm:? sinus bradycardia [place]:? normal Normal P waves.? Normal RO.?? Normal QRS complex.?? ST T wave :?? no ST elevation, no ST depression, no T-wave inversion qTC:412 The study has been interpreted contemporaneously by me. Radiology Impression Discussion of test interpretation with radiology: I have reviewed the radiologist's reading. Independent Historian Clinical information obtained from an independent historian. History obtained from or confirmed by: EMS Chronic Conditions Patient?s care impacted by: Hypertension Discharge Plan Discharge Clinical Impression: Chest pain Patient Disposition: Home, Self-Care Instructions: Chest Pain (DC) Prescriptions: No Action ondansetron 4 mg tablet,disintegrating 4 mg PO TID PRN (Reason: nausea and vomiting) 5 Days Qty: 10 0RF Referrals: Donny Kathleen MD [Physician] - 05/24/23
[2023-05-22 01:26] LABS: Alanine Aminotransferase 15 U/L (0-31); Albumin Level 3.7 g/dL (3.5-5.0); Alkaline Phosphatase 48 U/L (39-117); Aspartate Amino Transferase 16 U/L (5-31); Bilirubin Direct 0.2 mg/dL (0.0-0.5); Bilirubin Total 0.6 mg/dL (0.0-1.0); Lipase 14 U/L (8-78); Total Protein 6.8 g/dL (6.5-8.0)
[2023-05-22] MEDS: Famotidine 20 MG TABLET PO (02:10)
[2023-05-22] MEDS: Lidocaine HCl Viscous 2 % 15 ML SOLUTION MUCOUS MEM (02:10)
[2023-05-22] MEDS: Magnesium Hydrox/Alum Hydrox 30 ML ORAL.SUSP PO (02:10)
[2023-05-22 02:17] VITALS: BP 118/76; PULSE 47; RESP 14; TEMP 36.9; O2SAT 98
[2023-05-22 04:03] VITALS: BP 131/66; PULSE 55; RESP 14; O2SAT 99
[2023-05-22 04:04] LABS: Troponin-I High Sensitivity < 2.7 ng/L (<3.5-17.0)
== END 2023-05-22 05:20 | disposition home or self-care (01) ==
PROVIDERS: Nurse Practitioner Family; Emergency Provider Emergency Medicine Emergency Medical Services
DX: R07.89 Other chest pain (principal); R00.1 Bradycardia, unspecified; Z79.899 Other long term (current) drug therapy
CPT/HCPCS: 36415; 71046; 80048; 80076; 83690; 84484; 85025; 93005; 99283; 99285

== ENCOUNTER → 2023-05-22 00:23 | Outpatient (BNV) | payer OTHER, SELFPAY | PROVIDERS: Emergency Provider Emergency Medicine Emergency Medical Services; Visit Provider Internal Medicine Cardiovascular Disease | DX: R00.1 Bradycardia, unspecified (principal) | CPT/HCPCS: 93010 ==

== ENCOUNTER 2023-05-24 11:21 | Outpatient (AMB) | payer OTHER, SELFPAY ==
--- NOTE | 2023-05-24 11:25 | MHC.OFFVIS ---
Intake Vital Signs 05/24/23 11:26 Height 5 ft 1 in Weight 197 lb 8.547 oz BMI 37.3 BP 130/88 Blood Pressure Location Lt brachial Position Sitting Pulse 60 Intake Visit Reasons: NPV/Palpitations/HHC/F. Cem Intake Note: NPV [employer] Barrier Attendant Required: No Accompanied by: Self / Same As Patient Allergies azithromycin [AZITHROMYCIN] Allergy (Severe, Verified 05/24/23 11:26) ANGIOEDEMA pork derived (porcine) [PORK DERIVED (PORCINE)] Allergy (Unknown, Verified 05/24/23 11:) HIVES topiramate [From TOPAMAX] Allergy (Unknown, Verified 05/24/23 11:) HIVES tramadol [TRAMADOL] Allergy (Unknown, Verified 05/24/23 11:) CONVULSIONS Medication List - Last Reconciled 05/24/23 by Avelino Arechiga MD albuterol sulfate 90 mcg/actuation (Ventolin HFA) 2 puffs inhalation Q4-6H PRN buprenorphine-naloxone 8-2 mg (Suboxone) 20 mg sublingual QAM hydroxyzine HCl 50 mg PO QID PRN levetiracetam 500 mg PO BID lisinopril 5 mg PO DAILY ondansetron 4 mg PO TID PRN 5 days HPI HPI Comments History of Present Illness Details Bri is here for consultation regarding chest pain. No history of any coronary disease, myocardial infarction or cardiomyopathy or in fact any other cardiac issues in the past. Recently, she states that she was developing left-sided chest pain. Per ER note, described as stabbing sensation. Then apparently went to left arm and left shoulder. Somewhat of constant pain. However, upon her description today some pleuritic patterns as well. Overall, seems very nonspecific and doubt if it is truly anginal. Any case, she is concerned as there is strong family history of cardiac issues in both her mother and father at a relatively young age. Otherwise, she seems to overweight but no major comorbidities listed. [facility]LY [facility] Medical History (Updated 05/24/23 @ 11:59 by Avelino Arechiga MD) Essential hypertension Surgical History (Updated 05/24/23 @ 11:29 by Jackie Ann) No pertinent past surgical history Family History (Updated 05/24/23 @ 11:57 by Avelino Aerchiga MD) Mother Myocardial infarction Father Myocardial infarction Social History Alcohol intake: never Substance Use Type: Marijuana Review of Systems Const Denies chills, Denies daytime sleepiness, Denies fatigue, Denies fever(s), Denies frequent falls, Denies night sweats, Denies snoring, Denies weakness, Denies weight gain and Denies weight loss Eyes Denies loss of vision ENT Denies dizziness and Denies hearing loss Card Denies chest pain with activity, Denies syncope, Denies rapid heart rate, Denies edema, Denies claudication, Denies leg edema, Denies lightheadedness, Denies dyspnea, Denies dyspnea on exertion and Denies orthopnea Resp Denies cough, Denies excessive phlegm production, Denies dyspnea, Denies dyspnea on exertion, Denies snoring and Denies wheezing GI Denies abdominal pain, Denies hematochezia, Denies change in bowel habits, Denies change in stool character, Denies heartburn, Denies nausea and Denies vomiting Denies hematuria, Denies urinary frequency and Denies dysuria Musc Denies arthralgias, Denies muscle weakness, Denies numbness and Denies tingling Skin/Breast Denies nail changes and Denies rash Neuro Denies Abnormal speech present, Denies dizziness, Denies syncope, Denies frequent falls, Denies loss of vision, Denies memory loss, Denies numbness, Denies tingling and Denies weakness Psych Denies depression and Denies memory loss Endo Denies fatigue Aller/Immun Denies wheezing Physical Exam Vital Signs: Last Vital Signs Pulse 60 05/24/23 11:26 BP 130/88 05/24/23 11:26 BMI result Body Mass Index 37.3 Const General: comfortable and no acute distress Orientation/consciousness: patient oriented x3 HEENT Other: Unremarkable Head: Yes normal to inspection Neck Neck: Yes normal visual inspection Chest Chest palpation & inspection: normal inspection of the chest Resp Auscultation: clear to auscultation bilaterally Cardio Palpation: normal PMI Heart sounds: S1 normal heart sound present, S2 normal heart sound present, no gallops, no murmurs and no rubs GI Palpation (GI): Soft to palpation Back/Spine/Pelvis Other: unremarkable Skin General skin exam: no rashes or lesions noted Neuro General: patient oriented x3 Speech: No Abnormal speech present Extrem General: Yes normal to inspection Psych Mental Status: mental status grossly normal Assessment & Plan Assessment & Plan (1) Precordial chest pain: Code(s): R07.2 - Precordial pain Plan Atypical chest pain but strong family history of coronary disease/myocardial infarction in both mother and father at a relatively young age. EKG shows sinus bradycardia at 48/Min; no significant ST-T changes and otherwise unremarkable. Normal ID and corrected QT. Recent high sensitivity troponins are within normal limits. We can proceed with further workup including echocardiogram and exercise stress test. Based on findings, plan further care. Orders: Orders CA echo transthoracic complete Today R07.2 - Precordial pain CA stress test Today R07.2 - Precordial pain Coding Level of Care Code New Pt Level 3 (16993) Diagnoses Precordial chest pain R07.2
[2023-05-24 11:26] VITALS: BP 130/88; PULSE 60; BMI 37.3
== END 2023-05-24 11:45 | disposition home or self-care (01) ==
PROVIDERS: PCP Registered Nurse; Visit Provider Internal Medicine
DX: R07.2 Precordial pain (principal)
CPT/HCPCS: 99203

== ENCOUNTER → 2023-05-24 11:21 | Outpatient (BNVA) | payer OTHER, SELFPAY | PROVIDERS: PCP Registered Nurse; Visit Provider Internal Medicine | DX: R07.2 Precordial pain (principal) | CPT/HCPCS: 99202 ==

== ENCOUNTER → 2023-06-12 09:04 | Outpatient (REF) | payer OTHER, SELFPAY ==
--- NOTE | 2023-06-12 09:10 | CA_ITS ---
Transthoracic Echocardiogram Patient (Last, First, Middle): Bri Berrios, Gender: Female Date of : 1975 Age: 47 Procedure Date: 06/12/2023 Procedure Type: Transthoracic Echocardiogram Location: OP Height: 154.94 cm Weight: 83.92 kg BSA: 1.83 m2 Heart Rate: bpm BP: 126 / 70 mmHg Copy Operator: ZI Referring MD: Avelino Arechiga MD Merchandise Clerk: Donny Kathleen MD Symptoms: R07.2 - Precordial pain Study Quality: Adequate ECG Rhythm: Sinus Conclusions: - Normal study Findings Left Ventricle Normal left ventricular size, thickness, and systolic function. The visually estimated ejection fraction is between 60-65%. Diastolic function is normal for age. Peak GLS is -22.4%, within normal limits. Right Ventricle Normal right ventricular cavity size and systolic function. Atria Both atria are normal in size. There is no evidence of interatrial shunt. Aortic Valve Normal aortic valve structure and function. There is no aortic valve stenosis. There is no aortic valve regurgitation. Mitral Valve Normal mitral valve structure and function. There is trace mitral valve regurgitation. There is no mitral valve stenosis. Pulmonic Valve The pulmonic valve is likely normal. There is trace pulmonic valve regurgitation. Tricuspid Valve Normal tricuspid valve structure. There is trace tricuspid valve regurgitation. The right ventricular systolic pressure is normal. The right ventricular systolic pressure is 22 mmHg. Normal right atrial pressure. There is no evidence of pulmonary hypertension. Great Vessels All visible segments of the aorta are normal in size. The pulmonary artery was not well visualized. Venous The inferior vena cava is normal in size and collapses greater than 50% with inspiration. Pericardium/Pleural There is no evidence of pericardial effusion. Measurements 2D Linear Measurements IVSd: 0.77 0.6-0.9/0.6-1.0 cm LVIDd: 4.66 3.9-5.3/4.2-5.9 cm LVIDd Index: 2.55 2.4-3.2/2.2-3.1 cm/m2 LVIDs: 2.82 2.0-3.6 cm LVPWd: 0.77 0.7-1.1 cm LA Diam: 3.30 2.7-3.8/3.0-4.0 cm LAIDs Index: 1.80 1.5-2.3 cm/m2 LV Mass: 142.98 67-162/88-224 g LV Mass Index: 78.13 43-95/49-115 g/m2 LVOT Diam: 1.90 3.0+(-)1.3 cm 2D Systolic Function EF 4C: 66.70 >55% EF 2C: 64.30 >55% EF BiP: 64.90 >55% Mitral Valve MV Pk E: 1.17 MV PK A: 0.64 MV Decel Time: 245.00 E/A: 1.80 E'Lateral: 11.60 E'Medial: 8.49 E/E' Med: 13.80 E/E' Lat: 10.10 PHT: 72.00 MVA PHT: 3.06 Decel Mower: 4.76 Aortic Valve AoV Pk Darius: 1.44 AoV Mn Darius: 1.01 AoV VTI: 0.33 AoV Pk Grad: 8.00 Aov Mn Grad: 5.00 JUMA Cont.VTI: 2.93 LVOT LVOT Pk Darius: 1.52 LVOT Mn Darius: 0.99 LVOT VTI: 0.34 LVOT Pk Grad: 9.00 LVOT Mn Grad: 4.00 LVOT Diam: 1.90 LVOT Area: 2.84 Diastolic Function MV Pk E: 1.17 MV Pk A: 0.64 E/A: 1.80 E'Medial: 8.49 E/E' Med: 13.80 E' Laterial: 11.60 E/E' Lat: 10.10 Right Ventricle TAPSE (mm): 21.10 TVS' Darius: 11.90 Tricuspid Valve TR Pk Darius: 2.18 TR Pk Grad: 19.00 RA Press: 3.00 RVSP: 22.00 Great Vessels Aorta Sinus of Valsalva: 3.05 2.0-3.[address] Ridge: 2.20 1.7-3.4 cm Ao Asc: 3.00 2.1-3.4 cm Ao Arch: 2.80 Updated in Other Vendor System with Status of Final Donny Kathleen MD electronically signed on 06/14/2023 2:10:05 PM with status of Final
--- NOTE | 2023-06-12 09:10 | CA_ITS ---
Acquisition Time: 2023-06-12 10:11:17 Total Exercise Time: 00:05:47 Test Indications: CP Medications: SEE H Protocol: ROCHELLE Max HR: 131 BPM 74% of Pred: 175 BPM Max BP: 190/068 mmHG Max Work Load: 7.0 METS Exercise stress test exercise 5 min 47 sec of Rochelle protocol achieving 74% with request to stop due to fatigue and mild to moderate SOB, no chest discomfort, with resting BP 120/78, max BP 190/68, with isolated PVCs, without EKG changes at achieving workload. Test reviewed with Dr. Kathleen. Referred By: Avelino Arechiga Overread By: Rachelle Sinha
== END ==
LOC: HO.CARD 09:04
PROVIDERS: PCP Registered Nurse; Visit Provider Internal Medicine
DX: R07.2 Precordial pain (principal)
CPT/HCPCS: 93017; 93306; 93356

== ENCOUNTER → 2023-06-12 09:10 | Outpatient (BNV) | payer OTHER, SELFPAY | PROVIDERS: PCP Registered Nurse; Visit Provider Nurse Practitioner | DX: R07.2 Precordial pain (principal) | CPT/HCPCS: 93016; 93018; 93306 ==

== ENCOUNTER 2023-07-08 19:54 | Emergency (ER) | payer OTHER, SELFPAY ==
--- NOTE | ~2023-07-08 | CT_ITS ---
EXAMINATION: CT ABDOMEN AND PELVIS WITH CONTRAST CLINICAL INFORMATION: Right flank pain. History of cholecystectomy. Rule out stone, biliary disease. COMPARISON: 10/17/2022 TECHNIQUE: Multidetector volumetric images were obtained from the superior aspect of the liver through the pubic symphysis following administration 85 mL of Omnipaque 350 intravenous contrast. Sagittal and coronal reformatted images were obtained on the technologist's workstation. Oral contrast: No This CT examination was performed using dose optimization techniques as appropriate, variously including the following: *Automated exposure control *Adjustment of mA and/or kV according to patient size (this includes techniques or standardized protocols for targeted exams where dose is matched to indication/reason for exam; i.e. extremities or head) *Use of iterative reconstruction technique DLP: 747 mGy-cm FINDINGS: LUNG BASES: A calcified granuloma is present in the lingula. Lung bases are otherwise clear. LIVER, GALLBLADDER, AND BILIARY TREE: Liver is normal in size, attenuation, and contour. The gallbladder is surgically absent. Pneumobilia is most consistent with prior sphincterotomy. Mild prominence of the common bile duct (9 mm) is likely related to prior cholecystectomy. No significant biliary ductal dilatation. PANCREAS: Unremarkable. SPLEEN: Unremarkable. ADRENAL GLANDS: Unremarkable. KIDNEYS AND URETERS: The kidneys are normal in size, shape, and attenuation. No hydronephrosis, hydroureter, or calculi seen. No perinephric stranding. BLADDER: Unremarkable. GASTROINTESTINAL TRACT: Stomach, small bowel, and colon are normal in caliber. Moderate amount of stool is present in the colon. Nondilated bowel gas pattern. Appendix is normal. No intraperitoneal free fluid or free air. ABDOMINAL WALL: No significant hernia is appreciated. LYMPH NODES: Normal. VASCULAR: Calcific atherosclerosis is present in the abdominal aorta and iliac arteries. No aneurysmal dilatation. PELVIC VISCERA: Uterus appears surgically absent. No adnexal lesions. OSSEOUS STRUCTURES: Severe degenerative disc disease is present at L4-L5 with a posterior disc osteophytic protrusion. Prior right laminotomy in this region. Marked facet arthropathy at L4-L5. Mild osteoarthritis at the bilateral hips. Severe osteitis pubis. CT/CT abdomen pelvis w IV con IMPRESSION: 1. No acute intra-abdominal or intrapelvic abnormalities are identified. No evidence of biliary ductal dilatation. Pneumobilia is most consistent with prior sphincterotomy. 2. Severe degenerative disc disease at L4-L5. Fleischner guidelines were followed.
[2023-07-08 20:02] VITALS: BP 131/68; PULSE 67; RESP 18; TEMP 36.5; O2SAT 99; BMI 35.1
[2023-07-08 20:40] LABS: MANUAL DIFF FLAG NO
[2023-07-08 20:41] LABS: Basophils Absolute Auto 0.1 X10*3/uL (0.0-0.2); Basophils Percent Auto 0.9 % (0-2); Eosinophils Absolute Auto 0.3 X10*3/uL (0.0-0.4); Eosinophils Percent Auto 2.8 % (0-4); Hemoglobin 13.9 g/dl (12.0-16.0); Imm Gran Abs Auto 0.02 X10*3/uL (0.00-0.03); Imm Gran Pct Auto 0.2 % (0.0-0.4); Lymphocytes Absolute Auto 3.5 X10*3/uL (1.2-4.9); Lymphocytes Percent Auto 39.2 % (20-40); Mean Corpuscular HGB Conc 33.9 g/dl (31.0-35.0); Mean Corpuscular Volume 88.6 fL (80.0-98.0); Mean Platelet Volume 10.1 fL (9.4-12.3); Monocytes Absolute Auto 0.7 X10*3/uL (0.1-1.2); Monocytes Percent Auto 8.1 % (2-11); Neutrophils Absolute Auto 4.4 x10*3/uL (2.0-8.3); Neutrophils Percent Auto 48.8 % (45-73); Platelet Count 211 X10*3/uL (160-400); Red Blood Count 4.63 X10*6/uL (4.20-5.50)
[2023-07-08 20:49] LABS: Appearance Urine Clear; Color Urine Dark Yellow; Glucose Urine UA Negative (Negative); Leukocyte Esterase Urine Negative (Negative); Nitrite Urine Negative (Negative); PH 5.5 (5.0-9.0); Specific Gravity - Urine >= 1.030 (1.005-1.025); Urine Blood Negative (Negative); Urine Ketones Trace mg/dL (Negative); Urine Protein Negative (Neg-Trace)
--- NOTE | 2023-07-08 20:52 | ED.ABDPAIN ---
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 Patient states that the pain came on gradually 4 days prior and was located in her right flank and right upper quadrant area. She describes the pain is a sharp pain which is 8/10 at its worst. She states she had a similar pain several years prior after cholecystectomy and had a ?liver stone ?which was taken care of at [facility]. She states she has had nausea and vomiting and not able to eat and drink secondary to her discomfort. She has had no diarrhea. She states that her pain is currently 9/10. Related Data Home Medications Medication Instructions Recorded Confirmed albuterol sulfate 90 mcg/actuation 2 puff inhalation Q4-6H PRN 05/24/23 05/24/23 aerosol inhaler (Ventolin HFA) buprenorphine 8 mg-naloxone 2 mg 20 mg sublingual QAM 05/24/23 05/24/23 sublingual film (Suboxone) hydroxyzine HCl 50 mg tablet 50 mg PO QID PRN 05/24/23 05/24/23 levetiracetam 500 mg tablet 500 mg PO BID 05/24/23 05/24/23 lisinopril 5 mg tablet 5 mg PO DAILY 05/24/23 05/24/23 Previous Rx's Medication Instructions Recorded ondansetron 4 mg disintegrating 4 mg PO TID PRN nausea and 10/17/22 tablet vomiting 5 days #10 tabs aluminum hydrox-magnesium carb 254 10 ml PO QID PRN dyspepsia #355 mL 07/09/23 mg-237.5 mg/5 mL oral suspension (Gaviscon Extra Strength) omeprazole 20 mg capsule,delayed 20 mg PO DAILY 30 days #30 caps 07/09/23 release Allergies Allergy/AdvReac Type Severity Reaction Status Date / Time azithromycin [AZITHROMYCIN] Allergy Severe ANGIOEDEMA Verified 07/08/23 20:02 pork derived (porcine) Allergy Unknown HIVES Verified 07/08/23 20:02 [PORK DERIVED (PORCINE)] topiramate [From TOPAMAX] Allergy Unknown HIVES Verified 07/08/23 20:02 tramadol [TRAMADOL] Allergy Unknown CONVULSIONS Verified 07/08/23 20:02 Review of Systems Review of Systems Yes all other systems are reviewed and are negative [facility] Past Medical History [facility] Narrative: Social history: She does smoke cigarettes. She denies alcohol use. She smokes marijuana 2 times a day. She does take Suboxone for Percocet use disorder and states she has not used narcotic/opiates in over 2 years. Medical History (Updated 07/09/23 @ 00:00 by Francisco Sparks MD) Essential hypertension Surgical History (Updated 05/24/23 @ 11:29 by Jackie Ann) No pertinent past surgical history Family History Family History (Updated 05/24/23 @ 11:57 by Avelino Arechiga MD) Mother Myocardial infarction Father Myocardial infarction Social History Social History Alcohol intake: never Smoked in Last 30 Days: Yes Use of substances other than those prescribed or required for medical reasons: Yes Substance Use Type: Marijuana Substance Use Frequency: Chronic Longstanding Advance Directives: No Advance Directives Information Provided: No Physical Exam ED Vital Signs: Vital Signs - 24 hr 07/08/23 20:02 07/09/23 00:00 Temperature 97.7 F Pulse Rate 67 58 Respiratory Rate 18 18 Blood Pressure 131/68 112/58 L Pulse Oximetry 99 98 Oxygen Delivery Method Room Air BMI result Body Mass Index 35.1 Vital signs were normal Exam: General: Awake, alert in no distress Head: Normocephalic, atraumatic EENT: PERRL, Lids normal, sclera normal, conjunctiva normal, nose normal , ears normal, throat without erythema or exudates Neck: Supple, no adenopathy Lung: breath sounds symmetric, no wheezing, rales or rhonchi Chest: symmetric movement, nontender Heart: regular rate and rhythm, normal S1, S2 no murmurs or rubs Abdomen: soft, moderate right upper quadrant tenderness, mild to moderate epigastric tenderness, no right lower quadrant tenderness, nondistended, normal bowel sounds Back: no vertebral tenderness, mild right-sided CVAT, no left-sided CVAT Extremities: no deformities, moves all extremities symmetrically Neuro: Awake, alert, oriented, normal speech, cranial nerves intact, moves all extremities symmetrically Psych: Pleasant, cooperative Medical Decision Making Medical Decision Making [facility] Narrative: 47-year-old female with history of hypertension, depression, arthritis, seizure disorder, asthma, 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 Vital signs were normal. Exam revealed RUQ, epigastric and right flank tenderness and otherwise was unremarkable. Differential diagnosis: ?Includes but is not limited to retained biliary stone, pancreatitis, gastritis, peptic ulcer disease, viral syndrome, diverticulitis, urinary tract infection, pyelonephritis Following evaluation was ordered: CBC, CMP, lipase, quantitative beta-hCG, CT scan of the abdomen pelvis with IV contrast Patient was initially treated with the following: Cardiac monitoring, O2 saturation monitoring, Dilaudid 1 mg IV, Toradol 15 mg IV, Zofran 4 mg IV and normal saline x1 L Course: 23:58 My interpretation patient's laboratory evaluation is as follows:CBC was normal. CMP was normal. Lipase was normal. Quantitative beta-hCG was below detectable limits. Urinalysis revealed a high specific gravity otherwise was unremarkable. Microscopic was negative with no bacteria seen. CT scan abdomen pelvis without IV contrast did not reveal any clear etiology for the patient's pain. There was pneumobilia noted which was felt to be consistent with her sphincterotomy. Repeat examination did still revealed right upper quadrant and epigastric tenderness. Given the negative workup I suspect that the patient has gastritis. The patient is still complaining of 10/10 pain therefore she was ordered to get another dose of Dilaudid 1 mg IV and a GI cocktail of viscous lidocaine 10 mg, 10 mg and Maalox 30 mg orally. Patient will be started on Prilosec 20 mg once a day and given a prescription for extra-strength Gaviscon 4 times a day as needed. She was given printed and verbal instructions and gastritis and discharged home. Admission/Observation Consideration of admission/observation: Escalation of care including admission/observation considered Lab Data [facility] Lab Attestation statement: I reviewed the patient's lab results. 07/08/23 20:23 07/08/23 20:23 Labs: Lab Results 07/08/23 07/08/23 Range/Units 20:23 20:42 WBC 9.0 (4.8-10.8) X10*3/uL RBC 4.63 (4.20-5.50) X10*6/uL Hgb 13.9 (12.0-16.0) g/dl Hct 41.0 (37.0-47.0) % MCV 88.6 (80.0-98.0) fL MCH 30.0 (27.0-33.0) pg MCHC 33.9 (31.0-35.0) g/dl RDW 13.0 (11.0-16.0) % Plt Count 211 (160-400) X10*3/uL MPV 10.1 (9.4-12.3) fL Immature Gran % (Auto) 0.2 (0.0-0.4) % Neut % (Auto) 48.8 (45-73) % Lymph % (Auto) 39.2 (20-40) % [place] % (Auto) 8.1 (2-11) % Eos % (Auto) 2.8 (0-4) % Baso % (Auto) 0.9 (0-2) % Lymph # (Auto) 3.5 (1.2-4.9) X10*3/uL [place] # (Auto) 0.7 (0.1-1.2) X10*3/uL Eos # (Auto) 0.3 (0.0-0.4) X10*3/uL Baso # (Auto) 0.1 (0.0-0.2) X10*3/uL Abs Immat Gran (auto) 0.02 (0.00-0.03) X10*3/uL Absolute Neuts (auto) 4.4 (2.0-8.3) x10*3/uL Absolute Nucleated RBC 0.000 (0.0-0.012) X10*3/uL Nucleated RBC % (auto) 0.0 (0.0-0.2) /100WBC Sodium 139 (135-145) mmol/L Potassium 4.0 (3.3-5.1) mmol/L Chloride 107 (96-108) mmol/L Carbon Dioxide 23 (22-29) mmol/L Anion Gap 13 (12-20) BUN 15 (9-16) mg/dL Creatinine 0.70 (0.5-1.4) mg/dL Estim Creat Clear Calc 100.0 Estimated GFR > 60 Random Glucose 90 (60-115) mg/dL Calcium 8.6 (8.4-10.2) mg/dL Total Bilirubin 0.7 (0.0-1.0) mg/dL AST 18 (5-31) U/L ALT 15 (0-31) U/L Alkaline Phosphatase 54 (39-117) U/L Total Protein 6.8 (6.5-8.0) g/dL Albumin 3.6 (3.5-5.0) g/dL Lipase 13 (8-78) U/L Beta HCG, Quant < 2 mIU/mL Urine Color Dark Yellow Urine Appearance Clear Urine pH 5.5 (5.0-9.0) Ur Specific [place] >= 1.030 H (1.005-1.025) Urine Protein Negative (Neg-Trace) mg/dL Urine Glucose (UA) Negative (Negative) mg/dL Urine Ketones Trace (Negative) mg/dL Urine Blood Negative (Negative) Urine Nitrite Negative (Negative) Ur Leukocyte Esterase Negative (Negative) Urine RBC 0-2 (0-2) /HPF Urine WBC 0-5 (0-5) /HPF Ur Squamous Epith Cells 0-2 (0-2) /HPF Urine Bacteria None Seen (None Seen) Hyaline Casts 0-2 (0-2) /LPF Radiology Impression Discussion of test interpretation with radiology: I have reviewed the radiologist's reading. Radiologist Impression: CT abdomen pelvis w IV con IMPRESSION: 1. No acute intra-abdominal or intrapelvic abnormalities are identified. No evidence of biliary ductal dilatation. Pneumobilia is most consistent with prior sphincterotomy. 2. Severe degenerative disc disease at L4-L5. Fleischner guidelines were followed. Dictated By: n Independent Historian Clinical information obtained from an independent historian. History obtained from or confirmed by: Spouse Prescription Management I considered prescription management with: Other (H2 carmen, antacids) Chronic Conditions Patient?s care impacted by: Other (Asthma, seizure disorder) Medications Administered Discontinued Medications Generic Name Dose Route Start Last Admin Trade Name Freq PRN Reason Stop Dose Admin Al Hydroxide/Mg Hydroxide 30 ml 07/08/23 23:56 07/09/23 00:08 Magnesium Hydrox/Alum Hydrox 30 Ml Oral.Susp PO 07/08/23 23:57 30 ml ONCE STA Administration Belladonna Alkaloids/Phenobarbital 10 ml 07/08/23 23:56 07/09/23 00:07 Phenobarb/Hyoscy/Atropine/Scop 10 Ml Elixir PO 07/08/23 23:57 10 ml ONCE ONE Administration Hydromorphone HCl 1 mg 07/08/23 21:07 07/08/23 21:19 Hydromorphone Hcl 1 Mg/Ml Syringe IVPUSH 07/08/23 21:08 1 mg ONCE STA Administration Protocol Hydromorphone HCl 1 mg 07/08/23 23:56 07/09/23 00:07 Hydromorphone Hcl 1 Mg/Ml Syringe IVPUSH 07/08/23 23:57 1 mg ONCE STA Administration Protocol Sodium Chloride 1,000 mls @ 999 mls/hr 07/08/23 21:07 07/08/23 22:17 Ns IV 07/08/23 22:07 Infused .Q1H1M STA Infusion Iohexol 100 ml 07/08/23 21:53 07/08/23 21:53 Iohexol 350 Mg/Ml 100 Ml Infus..Btl IV 07/08/23 21:54 85 ml ONCE ONE Administration Ketorolac Tromethamine 15 mg 07/08/23 21:07 07/08/23 21:19 Ketorolac Tromethamine 15 Mg/Ml Vial IVPUSH 07/08/23 21:08 15 mg ONCE STA Administration Lidocaine HCl 10 ml 07/08/23 23:56 07/09/23 00:07 Lidocaine Hcl Viscous 2 % 15 Ml Solution PO 07/08/23 23:57 10 ml ONCE ONE Administration Ondansetron HCl 4 mg 07/08/23 21:07 07/08/23 21:19 Ondansetron Hcl 4 Mg/2 Ml Vial IVPUSH 07/08/23 21:08 4 mg ONCE ONE Administration Discharge Plan Discharge Clinical Impression: Gastritis Qualifiers: Gastritis type: unspecified gastritis Chronicity: acute Gastritis bleeding: without bleeding Qualified Code(s): K29.00 - Acute gastritis without bleeding Patient Disposition: Home, Self-Care Instructions: Gastritis (ED) Additional Instructions: Your blood work was normal. The CT scan of your abdomen pelvis IV contrast did not reveal a clear cause for your pain. At this time I do not think the pain is caused by your liver but is caused by inflammation of your stomach (gastritis). Take Prilosec (omeprazole) 20 mg pills, 1 pill once a day for 1 month. ?This medication shuts off your acid production and lets the inflammation in your stomach and esophagus heal. Take extra-strength Gaviscon 10 mL (2 tsp) 4 times a day as needed for abdominal pain. Follow-up with your doctor in 2 days. Please return to the emergency department if your symptoms get worse or if you develop any symptoms that are concerning to you. Prescriptions: New omeprazole 20 mg capsule,delayed release(DR/EC) 20 mg PO DAILY 30 Days Qty: 30 0RF Gaviscon Extra Strength 254-237.5 mg/5 mL suspension 10 ml PO QID PRN (Reason: dyspepsia) Qty: 355 0RF No Action ondansetron 4 mg tablet,disintegrating 4 mg PO TID PRN (Reason: nausea and vomiting) 5 Days Qty: 10 0RF buprenorphine-naloxone [Suboxone] 8-2 mg film 20 mg sublingual QAM albuterol sulfate [Ventolin HFA] 90 mcg/actuation HFA aerosol inhaler 2 puff inhalation Q4-6H PRN lisinopril 5 mg tablet 5 mg PO DAILY hydroxyzine HCl 50 mg tablet 50 mg PO QID PRN levetiracetam 500 mg tablet 500 mg PO BID
[2023-07-08 20:53] LABS: Bacteria Urine None Seen (None Seen); Hyaline Casts Urine 0-2 /LPF (0-2); RBC Urine 0-2 /HPF (0-2); Squamous Epithelial Cell Urine 0-2 /HPF (0-2); WBC Urine 0-5 /HPF (0-5)
[2023-07-08 20:57] LABS: Alanine Aminotransferase 15 U/L (0-31); Albumin Level 3.6 g/dL (3.5-5.0); Alkaline Phosphatase 54 U/L (39-117); Anion Gap 13 (12-20); Aspartate Amino Transferase 18 U/L (5-31); Bilirubin Total 0.7 mg/dL (0.0-1.0); Blood Urea Nitrogen 15 mg/dL (9-16); Calcium 8.6 mg/dL (8.4-10.2); Carbon Dioxide 23 mmol/L (22-29); Chloride 107 mmol/L (96-108); Estimated Glomerular Filt Rate > 60; Glucose Random 90 mg/dL (60-115); Lipase 13 U/L (8-78); Sodium 139 mmol/L (135-145); Total Protein 6.8 g/dL (6.5-8.0)
[2023-07-08] MEDS: Ketorolac Tromethamine 15 MG/ML VIAL IVPUSH (21:19)
[2023-07-08] MEDS: ondansetron HCL 4 MG/2 ML VIAL IVPUSH (21:19)
[2023-07-08] MEDS: 0.9 % Sodium Chloride 1,000 ML 999 ML IV (21:19)
[2023-07-08] MEDS: HYDROmorphone HCl 1 MG/ML SYRINGE IVPUSH (21:19)
[2023-07-08 21:41] LABS: HCG Quantitative < 2 mIU/mL
[2023-07-08] MEDS: iohexoL 350 MG/ML 100 ML INFUS..BTL IV (21:53)
[2023-07-09] VITALS: BP 112/58; PULSE 58; RESP 18; O2SAT 98
[2023-07-09] MEDS: HYDROmorphone HCl 1 MG/ML SYRINGE IVPUSH (00:07)
[2023-07-09] MEDS: Lidocaine HCl Viscous 2 % 15 ML SOLUTION 10 ML PO (00:07)
[2023-07-09] MEDS: PHENobarb/Hyoscy/Atropine/Scop 10 ML ELIXIR PO (00:07)
[2023-07-09] MEDS: Magnesium Hydrox/Alum Hydrox 30 ML ORAL.SUSP PO (00:08)
== END 2023-07-09 01:38 | disposition home or self-care (01) ==
PROVIDERS: Emergency Provider Emergency Medicine Emergency Medical Services; PCP Registered Nurse
DX: K29.00 Acute gastritis without bleeding (principal); R10.11 Right upper quadrant pain; R11.2 Nausea with vomiting, unspecified; Z79.899 Other long term (current) drug therapy
CPT/HCPCS: 36415; 74177; 80053; 81001; 83690; 84702; 85025; 96361; 96374; 96375; 96376; 99284; 99285; J1170; J1885; J2405; Q9967

== ENCOUNTER 2023-07-10 13:04 | Outpatient (AMB) | payer OTHER, SELFPAY ==
[2023-07-10 13:07] VITALS: BP 110/60; BMI 40.8
--- NOTE | 2023-07-10 13:07 | A.OFFVIS_ITS ---
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 Required: No Accompanied by: Self / Same As Patient Allergies azithromycin [AZITHROMYCIN] Allergy (Severe, Verified 07/10/23 13:11) ANGIOEDEMA pork derived (porcine) [PORK DERIVED (PORCINE)] Allergy (Unknown, Verified 07/10/23 13:11) HIVES topiramate [From TOPAMAX] Allergy (Unknown, Verified 07/10/23 13:11) HIVES tramadol [TRAMADOL] Allergy (Unknown, Verified 07/10/23 13:11) CONVULSIONS Medication List - Last Reconciled 07/10/23 by Rachelle Sinha NP albuterol sulfate 90 mcg/actuation (Ventolin HFA) 2 puffs inhalation Q4-6H PRN aluminum hydrox-magnesium carb 254-237.5 mg/5 mL (Gaviscon Extra Strength) 10 mL PO QID PRN buprenorphine-naloxone 8-2 mg (Suboxone) 20 mg sublingual QAM hydroxyzine HCl 50 mg PO QID PRN levetiracetam 500 mg PO BID lisinopril 5 mg PO DAILY omeprazole 20 mg PO DAILY 30 days ondansetron 4 mg PO TID PRN 5 days HPI HPI Comments History of Present Illness Details 47-year-old female presents today for a follow-up after testing. She seen Dr Arechiga regarding chest pains which occur on the left side. This chest pain hasn't occurred since her last appointment. She reports she has been having increase in palpitations. She states they feel like a fast heart rate and occur when she is sitting and mostly at work. She gets short of breath when these occur. [facility] Medical History Palpitation Essential hypertension Surgical History No pertinent past surgical history Family History Mother Myocardial infarction Father Myocardial infarction Social History Alcohol intake: never Substance Use Type: Marijuana Review of Systems Const Denies weakness ENT Denies dizziness Card Denies chest pain, Denies chest pain with activity, Denies syncope, Denies rapid heart rate, Denies pedal edema, Denies edema, Denies leg edema, Denies lightheadedness, Denies palpitations, Denies dyspnea, Denies dyspnea on exertion and Denies orthopnea Resp Denies cough, Denies dyspnea and Denies dyspnea on exertion GI Denies hematochezia and Denies change in stool character Musc Denies abnormal gait, Denies muscle cramps, Denies muscle weakness, Denies numbness, Denies radiating pain into limb and Denies tingling Neuro Denies abnormal gait, Denies dizziness, Denies syncope, Denies numbness, Denies tingling and Denies weakness Endo Denies palpitations Physical Exam Vital Signs: Last Vital Signs BP 110/60 07/10/23 13:07 BMI result Body Mass Index 40.8 Const General: healthy appearing and no acute distress Orientation/consciousness: patient oriented x3 HEENT Head: Yes normal to inspection Eyes General: appearance normal, both eyes and all related structures Neck Neck: Yes normal visual inspection Chest Chest palpation & inspection: normal inspection of the chest Resp Effort & Inspection: normal respiratory effort Auscultation: clear to auscultation bilaterally Cardio Jugular venous distension: no JVD Palpation: normal PMI Rate: regular rate Rhythm: regular rhythm Heart sounds: S1 normal heart sound present, S2 normal heart sound present, no click, no gallops, no murmurs and no rubs GI Inspection: Yes normal to inspection Palpation (GI): Soft to palpation Skin General skin exam: no rashes or lesions noted Neuro General: patient oriented x3 Extrem General: Yes normal to inspection Psych Appearance: grossly normal Results Reviewed Results Reviewed: Transthroarcic echocadiogram : Normal Study Exercise stress test exercise 5 min 47 sec of Jonnathan protocol achieving 74% with request to stop due to fatigue and mild to moderate SOB, no chest discomfort, with resting BP 120/78, max BP 190/68, with isolated PVCs, without EKG changes at achieving workload. Test reviewed with Dr. Kathleen. Assessment & Plan Assessment & Plan (1) Precordial chest pain: Code(s): R07.2 - Precordial pain (2) Palpitation: Code(s): R00.2 - Palpitations Plan Echocardiogram showed a normal study. She was not able to get her heart rate high enough during stress test. Got to 74% of predicted heart rate but had good workload of 7 METS. Since has family history of CAD will repeat with nuclear images. She has not had a seizure in over 3 months, if she remains stable may switch to pharmacological if she is unable to get heart rate high enough. Will get three day holter to assess for arrhtyhmias. ED care for symptoms if needed. Will follow-up after testing Orders: Orders NM cardiolite stress test Today R07.2 - Precordial pain ECG 3 day holter monitor Today R00.2 - Palpitations CA stress test Today R07.2 - Precordial pain Coding Level of Care Code Est Pt Level 3 (31375) Diagnoses Precordial chest pain R07.2 Palpitation R00.2
== END 2023-07-10 13:32 | disposition home or self-care (01) ==
PROVIDERS: PCP Registered Nurse; Visit Provider Nurse Practitioner
DX: R07.2 Precordial pain (principal); R00.2 Palpitations
CPT/HCPCS: 99213

== ENCOUNTER → 2023-07-10 13:04 | Outpatient (BNVA) | payer OTHER, SELFPAY | PROVIDERS: PCP Registered Nurse; Visit Provider Nurse Practitioner | DX: R07.2 Precordial pain (principal); R00.2 Palpitations | CPT/HCPCS: 99212 ==

== ENCOUNTER → 2023-08-28 09:33 | Outpatient (REF) | payer OTHER, SELFPAY ==
--- NOTE | 2023-08-28 09:42 | HM_ITS ---
* Total monitoring time 3 days. * Underlying rhythm is sinus with an average rate of 71/Min. * Rare supraventricular and ventricular ectopy. * No significant pauses or AV blocks. * Patient marker used once in association with sinus. * No diary events. MTDD
== END ==
LOC: HO.CARD 09:33
PROVIDERS: PCP Registered Nurse; Visit Provider Nurse Practitioner
DX: R07.2 Precordial pain (principal)
CPT/HCPCS: 93242

== ENCOUNTER → 2023-08-28 09:42 | Outpatient (BNV) | payer OTHER, SELFPAY | PROVIDERS: PCP Registered Nurse; Visit Provider Internal Medicine | DX: R00.1 Bradycardia, unspecified (principal) | CPT/HCPCS: 93244 ==

== ENCOUNTER 2023-09-11 13:14 | Outpatient (AMB) | payer OTHER, SELFPAY ==
[2023-09-11 13:39] VITALS: BP 133/75; PULSE 66; O2SAT 95; BMI 38.7
--- NOTE | 2023-09-11 13:39 | MHC.OFFVIS ---
Vital Signs 09/11/23 13:39 Height 5 ft 1 in Weight 205 lb 0.478 oz BMI 38.7 BP 133/75 Blood Pressure Location Lt brachial Position Sitting Pulse 66 Pulse Source Pulse Oximeter Pulse Oximetry (%) 95 Oxygen Delivery Method Room Air Intake Visit Reasons: 8 wk s/p mibi/ holter Intake Note: 8 week follow up after holter pt feels good Allergies azithromycin [AZITHROMYCIN] Allergy (Severe, Verified 07/10/23 13:11) ANGIOEDEMA pork derived (porcine) [PORK DERIVED (PORCINE)] Allergy (Unknown, Verified 07/10/23 13:11) HIVES topiramate [From TOPAMAX] Allergy (Unknown, Verified 07/10/23 13:11) HIVES tramadol [TRAMADOL] Allergy (Unknown, Verified 07/10/23 13:11) CONVULSIONS HPI Comments Details: 48-year-old female presents today for a follow-up after testing. She seen Dr Arechiga regarding chest pains which occur on the left side. She reports she has not had any chest pains or shortness of breath. She reports she still has an occational palpitations but is has decreased in frequency. She has not had stress test with nuclear imaging yet. She has felt stressed due to her sister passing away 09/09 due to a [place]. [facility] Medical History Palpitation Essential hypertension Surgical History No pertinent past surgical history Family History Mother Myocardial infarction Father Myocardial infarction Social History Alcohol intake: never Substance Use Type: Marijuana Review of Systems Const Denies weakness ENT Denies dizziness Card Denies chest pain, Denies chest pain with activity, Denies syncope, Denies rapid heart rate, Denies pedal edema, Denies edema, Denies leg edema, Denies lightheadedness, Denies palpitations, Denies dyspnea, Denies dyspnea on exertion and Denies orthopnea Resp Denies cough, Denies dyspnea and Denies dyspnea on exertion GI Denies hematochezia and Denies change in stool character Musc Denies abnormal gait, Denies muscle cramps, Denies muscle weakness, Denies numbness, Denies radiating pain into limb and Denies tingling Neuro Denies abnormal gait, Denies dizziness, Denies syncope, Denies numbness, Denies tingling and Denies weakness Endo Denies palpitations Physical Exam Vital Signs: Last Vital Signs Pulse 66 09/11/23 13:39 BP 133/75 09/11/23 13:39 Pulse Ox 95 09/11/23 13:39 Oxygen Delivery Method Room Air 09/11/23 13:39 BMI result Body Mass Index 38.7 Const General: healthy appearing and no acute distress Orientation/consciousness: patient oriented x3 HEENT Head: Yes normal to inspection Eyes General: appearance normal, both eyes and all related structures Neck Neck: Yes normal visual inspection Chest Chest palpation & inspection: normal inspection of the chest Resp Effort & Inspection: normal respiratory effort Auscultation: clear to auscultation bilaterally Cardio Jugular venous distension: no JVD Palpation: normal PMI Rate: regular rate Rhythm: regular rhythm Heart sounds: S1 normal heart sound present, S2 normal heart sound present, no click, no gallops, no murmurs and no rubs GI Inspection: Yes normal to inspection Palpation (GI): Soft to palpation Skin General skin exam: no rashes or lesions noted Neuro General: patient oriented x3 Extrem General: Yes normal to inspection Psych Appearance: grossly normal Results Reviewed Results Reviewed: holter: Total monitoring time 3 days. Underlying rhythm is sinus with an average rate of 71/Min. Rare supraventricular and ventricular ectopy. No significant pauses or AV blocks. Patient marker used once in association with sinus. No diary events. Echo Conclusions: - Normal study Stress test: Exercise stress test exercise 5 min 47 sec of Jonnathan protocol achieving 74% with request to stop due to fatigue and mild to moderate SOB, no chest discomfort, with resting BP 120/78, max BP 190/68, with isolated PVCs, without EKG changes at achieving workload. Test reviewed with Dr. Kathleen. Assessment & Plan Assessment & Plan (1) Precordial chest pain: Code(s): R07.2 - Precordial pain Category: Medical (2) Palpitation: Code(s): R00.2 - Palpitations Category: Medical Plan No longer having chest pains and palpitations have lessen in frequency. Holter showed rare ectopy and echocardiogram was normal. Stress test she only achieved 74% with 5 min 47 sec of Jonnathan protocol with a max BP of 190/68. Patient needs to reschedule stress with nuclear imaging. Discussed with her importance of diet and exercise to control blood pressures. Coding Level of Care Code Est Pt Level 3 (71902) Diagnoses Precordial chest pain R07.2 Palpitation R00.2
== END 2023-09-11 14:02 | disposition home or self-care (01) ==
PROVIDERS: PCP Registered Nurse; Visit Provider Nurse Practitioner
DX: R07.2 Precordial pain (principal); R00.2 Palpitations
CPT/HCPCS: 99213

== ENCOUNTER → 2023-09-11 13:14 | Outpatient (BNVA) | payer OTHER, SELFPAY | PROVIDERS: PCP Registered Nurse; Visit Provider Nurse Practitioner | DX: R07.2 Precordial pain (principal); R00.2 Palpitations | CPT/HCPCS: 99212 ==

== ENCOUNTER 2023-09-30 20:09 | Emergency (ER) | payer OTHER, SELFPAY ==
[2023-09-30 20:26] VITALS: BP 138/76; PULSE 66; O2SAT 94
--- NOTE | 2023-09-30 20:31 | ED_ITS ---
HPI - General Adult General Chief complaint: Anxiety Stated complaint: dizzy,lethargic,anxious Time Seen by Provider: 09/30/23 20:27 Source: patient Mode of arrival: EMS Limitations: no limitations History of Present Illness HPI narrative: Patient with history of hypertension palpitation off and on increased stress anxious due to her sister passing away 09/10/23 due to [place] comes here for palpitation episode with tingling sensation in feel like the panic attack no chest pain Related Data Home Medications ?Medication ?Instructions ?Recorded ?Confirmed albuterol sulfate 90 mcg/actuation 2 puff inhalation Q4-6H PRN 05/24/23 05/24/23 aerosol inhaler (Ventolin HFA) buprenorphine 8 mg-naloxone 2 mg 20 mg sublingual QAM 05/24/23 05/24/23 sublingual film (Suboxone) hydroxyzine HCl 50 mg tablet 50 mg PO QID PRN 05/24/23 05/24/23 levetiracetam 500 mg tablet 500 mg PO BID 05/24/23 05/24/23 lisinopril 5 mg tablet 5 mg PO DAILY 05/24/23 05/24/23 Previous Rx's ?Medication ?Instructions ?Recorded ondansetron 4 mg disintegrating 4 mg PO TID PRN nausea and 10/17/22 tablet vomiting 5 days #10 tabs aluminum hydrox-magnesium carb 254 10 ml PO QID PRN dyspepsia #355 mL 07/09/23 mg-237.5 mg/5 mL oral suspension (Gaviscon Extra Strength) omeprazole 20 mg capsule,delayed 20 mg PO DAILY 30 days #30 caps 07/09/23 release lorazepam 1 mg tablet (Ativan) 1 mg PO BEDTIME PRN anxiety/sleep 09/30/23 #14 tabs Allergies Allergy/AdvReac Type Severity Reaction Status Date / Time azithromycin [AZITHROMYCIN] Allergy Severe ANGIOEDEMA Verified 09/30/23 20:38 pork derived (porcine) Allergy Unknown HIVES Verified 09/30/23 20:38 [PORK DERIVED (PORCINE)] topiramate [From TOPAMAX] Allergy Unknown HIVES Verified 09/30/23 20:38 tramadol [TRAMADOL] Allergy Unknown CONVULSIONS Verified 09/30/23 20:38 Review of Systems Review of Systems: Yes all other systems are reviewed and are negative PMFSH Past Medical History Medical History Palpitation Essential hypertension Surgical History No pertinent past surgical history Family History Family History Mother Myocardial infarction Father Myocardial infarction Social History Social History Alcohol intake: former Smoked in Last 30 Days: Yes Use of substances other than those prescribed or required for medical reasons: No Substance Use Type: Marijuana Advance Directives: No Advance Directives Information Provided: No Patient : No Physical Exam ED Vital Signs: Vital Signs - 24 hr 09/30/23 20:36 09/30/23 22:05 Temperature 98.2 F 98.0 F Pulse Rate 56 62 Respiratory Rate 18 16 Blood Pressure 120/71 124/78 Pulse Oximetry 100 97 Oxygen Delivery Method Room Air Room Air BMI result Body Mass Index 39.2 Appearance: Alert. Oriented X3. No acute distress. anxious Eyes: PERRLA, No Nystagmus ENT: Pharynx normal. Oral Mucosa moist Neck: Normal inspection. Neck supple. CVS: Normal heart rate and rhythm. Pulses normal. Respiratory: No respiratory distress. Equal air entry bilateral, no wheezing/rales/rhonchi Abdomen: Soft and nontender. Bowel sounds are present, no mass palpable, no CVA tenderness Skin: Skin warm and dry. Normal skin color. Normal skin turgor. Extremities: No lower extremity edema. No calf tenderness Neuro: Oriented X 3. No motor deficit. No sensory deficit.No cerebellar signs , cranial nerves II-XII intact Medications Administered Discontinued Medications Generic Name Dose Route Start Last Admin Trade Name Freq PRN Reason Stop Dose Admin Lorazepam 1 mg 09/30/23 20:36 09/30/23 21:11 Lorazepam 1 Mg Tablet PO 09/30/23 20:37 1 mg ONCE ONE Administration Medical Decision Making Medical Decision Making [facility] Narrative: Patient with anxiety will from recent of her sister will discharge patient home on lorazepam Independent Interpretation I performed an independent interpretation of an: EKG Interpretation: Sinus bradycardia with heart rate of 51 beats per minute normal intervals normal axis no acute ST T wave changes no acute ischemia Discharge Plan Discharge Clinical Impression: Acute anxiety Patient Disposition: Home, Self-Care Instructions: Generalized Anxiety Disorder (ED) Additional Instructions: Take Ativan 1 mg tablet every night as needed for anxiety/sleep Follow up with PCP Prescriptions: New lorazepam [Ativan] 1 mg tablet 1 mg PO BEDTIME PRN (Reason: anxiety/sleep) Qty: 14 0RF No Action ondansetron 4 mg tablet,disintegrating 4 mg PO TID PRN (Reason: nausea and vomiting) 5 Days Qty: 10 0RF omeprazole 20 mg capsule,delayed release(DR/EC) 20 mg PO DAILY 30 Days Qty: 30 0RF Gaviscon Extra Strength 254-237.5 mg/5 mL suspension 10 ml PO QID PRN (Reason: dyspepsia) Qty: 355 0RF buprenorphine-naloxone [Suboxone] 8-2 mg film 20 mg sublingual QAM albuterol sulfate [Ventolin HFA] 90 mcg/actuation HFA aerosol inhaler 2 puff inhalation Q4-6H PRN lisinopril 5 mg tablet 5 mg PO DAILY hydroxyzine HCl 50 mg tablet 50 mg PO QID PRN levetiracetam 500 mg tablet 500 mg PO BID Interventions: ED Discharge Assessment Last Done: 09/30/23 22:05 Discharge Date/Time: 09/30/23 22:06 Print Language: Romanian
[2023-09-30 20:36] VITALS: BP 120/71; PULSE 56; RESP 18; TEMP 36.8; O2SAT 100; BMI 39.2
[2023-09-30] MEDS: LORazepam 1 MG TABLET PO (21:11)
--- NOTE | 2023-09-30 21:29 | ECG_ITS ---
Test Reason : anxiety Blood Pressure : / mmHG Vent. Rate : 051 BPM Atrial Rate : 051 BPM P-R Int : 174 ms QRS Dur : 090 ms QT Int : 446 ms P-R-T Axes : -03 022 032 degrees QTc Int : 411 ms Sinus bradycardia Otherwise normal ECG When compared with ECG of 22-MAY-2023 00:23, No significant change was found Referred By: Ilia Abrams Electronically Signed By:Mike Carroll
[2023-09-30 22:05] VITALS: BP 124/78; PULSE 62; RESP 16; TEMP 36.7; O2SAT 97
== END 2023-09-30 22:06 | disposition home or self-care (01) ==
PROVIDERS: Emergency Provider Internal Medicine; PCP Registered Nurse
DX: F41.9 Anxiety disorder, unspecified (principal); I10 Essential (primary) hypertension; F12.90 Cannabis use, unspecified, uncomplicated
CPT/HCPCS: 93005; 99284

== ENCOUNTER → 2023-09-30 21:29 | Outpatient (BNV) | payer OTHER, SELFPAY | PROVIDERS: Emergency Provider Internal Medicine; PCP Registered Nurse; Visit Provider Internal Medicine Cardiovascular Disease | DX: R00.1 Bradycardia, unspecified (principal) | CPT/HCPCS: 93010 ==

== ENCOUNTER 2024-09-04 13:25 | Outpatient (REF) | payer OTHER, SELFPAY ==
[2024-09-07 07:29] LABS: TS Negative Control Passed; TS Panel A 1; TS Panel B 0; TS Positive Control Passed; TSpotTB Negative (Negative)
== END 2024-09-04 13:26 | disposition home or self-care (01) ==
LOC: HO.HHCL 13:25
PROVIDERS: Visit Provider Family Medicine
DX: Z20.1 Contact with and (suspected) exposure to tuberculosis (principal)
CPT/HCPCS: 36415; 86481

== ENCOUNTER 2024-10-09 22:33 | Emergency (ER) | payer OTHER, SELFPAY ==
--- NOTE | ~2024-10-09 | XR_ITS ---
CLINICAL HISTORY: atraumatic pain 4 view right knee Comparison: None available Findings: Mild to moderate osteoarthritis of the right knee including patellofemoral joint space narrowing of the medial compartment joint space narrowing. No acute displaced fracture. No dislocation. Small effusion present. Calcification anterior to the patella and nonspecific and likely vascular. No radiopaque retained foreign body. IMPRESSION: 1. Small effusion present. 2. Mild-moderate osteoarthritis. This document has been electronically signed by: Kartik Bates MD on 10/10/2024 01:05:08
--- NOTE | ~2024-10-09 | US_ITS ---
CLINICAL HISTORY: RLE pain, numbness, swelling Venous duplex ultrasound right lower extremity Comparison: None Findings: The visualized deep veins are fully compressible with normal Doppler color flow and spectral tracings. Increased echogenicity of the superficial soft tissues as can be seen with edema or cellulitis. Imaged contralateral (left) common femoral vein is also patent. IMPRESSION: 1. Negative for right lower extremity deep vein thrombosis. This document has been electronically signed by: Kartik Bates MD on 10/10/2024 01:54:49
[2024-10-09 22:35] VITALS: BP 157/71; PULSE 71; RESP 20; TEMP 36.2; O2SAT 97; BMI 40.8
--- OUTSIDE RECORDS SUMMARY | 2024-10-09 22:54 | XMS_ITS | Encounter Summary ---
Author Organization [employer] Address [address] [place] [address] Care Team Providers Care Store Operations Specialist Name Role Phone Heide Priest SMALL CRAFT OPERATOR Primary Care Provider [phone] Reason for Visit * Reason Comments Med Refill Encounter Details Date Type Department Care Team ([facility] st Contact Info) Description 05/31/[address] [facility] [address] [place] [address] Shaylee García MD [address] [place] [address] Opioid type dependence, continuous (CMS/HCC) Social History Tobacco Use Types Packs/Day Years Used Date Smoking Tobacco: Every Day Cigarettes Alcohol Use Standard Drinks/Week Comments Never 0 (1 standard drink = 0.6 oz pur e alcohol) Depression Answer Date Recorded Patient Health Questionnaire-9 Score 8 12/19/2022 Housing Stability Answer Date Recorded What is your housing situation today? I have rosa mascorro 03/05/[address] you li ve. Do you have problems with any of the following? None of the above 03/05/2023 Food Insecurity Answer Date Recorded Within the past 12 months, y ou worried that your food would run out before you got money to buy more: Often true 2022 Within the past 12 months,th e food you bought just didn't last and you didn't have enough money to get more: Sometimes True 03/05/2023 Transportation Answer Date Recorded In the past 12 months, has l ack of transportation kept you from medical appts, meetings, work or from getting things needed for daily living? No 03/05/2023 Utilities Answer Date Recorded In the past 12 months, has t he electric, gas, oil or water company threatened to shut off services in your home? No 03/05/2023 Depression Answer Date Recorded Patient Health Questionnaire-2 Score 2 12/19/2022 Comments Unknown Sex and Gender Information Value Date Recorded Sex Assigned at Female 03/13/2022 10:34 AM EDT Legal Sex Female 10:34 AM EDT Gender Identity Female 03/13/2022 10:34 AM EDT Sexual Orientation Straight 03/13/2022 10 :34 AM EDT documented as of this encounter Plan of Treatment Upcoming Encounters Date Type Department Care Team (Late st Contact Info) Description 10/23/2024 3:30 PM EDT Office Visit [facility] MED[facility] [address] [place] [phone] Shaylee García MD [address] [place] [address] 11/17/2024 2:00 PM EDT Office Visit [facility] [address] [place] [phone] CemHeide guerra [facility] [address] [place] [address] documented as of this encounter Visit Diagnoses Diagnosis Opioid type dependence, continuous (CMS/HCC) Opioid type dependence, continuous documented in this encounter Additional Health Concerns Assessment Noted Time PHQ-9 Depression Total Score: 8 12/20/19 23 10:14 AM EDT documented as of this encounter Care Teams Store Operations Specialist Relationship Specialty Start Date End Date Heide Priest FNP [address] [place] [id number] PCP - General Family Medicine 10/16/22 documented as of this encounter
--- NOTE | 2024-10-09 23:23 | ED_ITS ---
HPI - Extremity Problem General Chief complaint: Extremity Problem Stated complaint: right leg burning, numbness Time Seen by Provider: 10/09/24 22:52 Source: patient Mode of arrival: ambulatory Limitations: no limitations History of Present Illness ED Provider: lilian mcfarlane np HPI Narrative: patient is a 49-year-old female who presents emergency department for evaluation. She states over the past week and a half she has been experiencing atraumatic pain to the right lower extremity. She states that she awoke 1 day with pain to the lateral aspect of her knee described as a burning and stabbing sensation with the associated numbness. She has trialed ibuprofen and acetaminophen for pain without much improvement. Pain is worse when ambulating. Pain was notably worse today which prompted her concern to come to the emergency department. She states that there was no injury. She occasionally gets distal swelling to the extremity though not experiencing at this time. She denies any redness or warmth. Denies any fevers or chills. Denies any rashes or lesions. No associated chest pain or shortness of breath, recent prolonged immobilization or surgery Related Data Home Medications ?Medication ?Instructions ?Recorded ?Confirmed albuterol sulfate 90 mcg/actuation 2 puff inhalation Q4-6H PRN 05/24/23 05/24/23 aerosol inhaler (Ventolin HFA) buprenorphine 8 mg-naloxone 2 mg 20 mg sublingual QAM 05/24/23 05/24/23 sublingual film (Suboxone) hydroxyzine HCl 50 mg tablet 50 mg PO QID PRN 05/24/23 05/24/23 levetiracetam 500 mg tablet 500 mg PO BID 05/24/23 05/24/23 lisinopril 5 mg tablet 5 mg PO DAILY 05/24/23 05/24/23 Previous Rx's ?Medication ?Instructions ?Recorded ondansetron 4 mg disintegrating 4 mg PO TID PRN nausea and 10/17/22 tablet vomiting 5 days #10 tabs aluminum hydrox-magnesium carb 254 10 ml PO QID PRN dyspepsia #355 mL 07/09/23 mg-237.5 mg/5 mL oral suspension (Gaviscon Extra Strength) omeprazole 20 mg capsule,delayed 20 mg PO DAILY 30 days #30 caps 07/09/23 release lorazepam 1 mg tablet (Ativan) 1 mg PO BEDTIME PRN anxiety/sleep 09/30/23 #14 tabs Allergies Allergy/AdvReac Type Severity Reaction Status Date / Time azithromycin [AZITHROMYCIN] Allergy Severe ANGIOEDEMA Verified 10/09/24 22:37 pork derived (porcine) Allergy Unknown HIVES Verified 10/09/24 22:37 [PORK DERIVED (PORCINE)] topiramate [From TOPAMAX] Allergy Unknown HIVES Verified 10/09/24 22:37 tramadol [TRAMADOL] Allergy Unknown CONVULSIONS Verified 10/09/24 22:37 Review of Systems Review of Systems: Yes all other systems are reviewed and are negative [facility] Past Medical History Attestation statement: The following information was validated with the patient. Source: old records reviewed Medical History Palpitation Essential hypertension Surgical History No pertinent past surgical history Family History Family History Mother Myocardial infarction Father Myocardial infarction Social History Social History Alcohol intake: former Substance Use Type: Marijuana Advance Directives: No Advance Directives Information Provided: No Physical Exam Vital Signs: Vital Signs: Last Vital Signs Temp 97.2 F 10/09/24 22:35 Pulse 71 10/09/24 22:35 Resp 20 10/09/24 22:35 BP 157/71 H 10/09/24 22:35 Pulse Ox 97 10/09/24 22:35 O2 Del Method Room Air 10/09/24 22:35 BMI result Body Mass Index 40.8 Appearance: Alert.?Oriented to person, place and time. No acute distress.?Normal affect.? CVS: Heart sounds normal. Normal heart rate and rhythm.? Pulses normal.?? Respiratory: No respiratory distress.? Lung sounds clear to auscultation bilaterally?? Abdomen: Soft and non-tender. Normoactive bowel sounds. ?? Skin: Skin warm and dry.? Normal skin color.? Extremities: No lower extremity edema.? No calf ttp? no laxity of the right knee on examination. No effusion. No erythema or warmth. No rashes or lesions. Negative anterior/posterior drawer test, 2+ DP/PT pulse Neuro: Moves all extremities spontaneously. Sensation intact bilaterally. Ambulates with antalgic gait. Course Reevaluation(s) Reevaluation #1: XR revealing osteoarthritis with small effusion otherwise no acute fracture/ dislocation. Venous duplex ultrasound without evidence of VTE. At this time feel that she is stable for discharge, discussed conservative treatment, outpatient follow-up with PCP, discussed potential course of physical therapy and/or referral due orthopedic should her symptoms not improve. Discussed worrisome signs and symptoms that would warrant re-evaluation in the emergency department. All questions answered. Medical Decision Making Medical Decision Making MDM Narrative: patient is a 49-year-old female with past medical history of hypertension palpitations presenting for evaluation of right lower extremity pain / numbness as per HPI atraumatic in nature with onset 1.5 weeks ago. It exacerbates with ambulation, no relief with OTC NSAIDs/acetaminophen. On evaluation does not have findings consistent with septic arthritis. There was no obvious deformity to suggest an acute fracture dislocation. Reviewed obtaining XR imaging to evaluate for degenerative changes /joint abnormality lower suspicion for acute fracture dislocation based on history and physical examination. Obtain venous duplex ultrasound to exclude DVT. Extremities neurovascularly intact distally. Does not have findings consistent with acute arterial occlusion. Will trial ketorolac for analgesia at this time, has not taken any OTC medications since 15:00 Differential Diagnosis Differential Diagnoses: The differential diagnosis associated with the presentation includes ( see narrative above) Independent Interpretation I performed an independent interpretation of an: Plain X-Ray (No acute fracture/ dislocation of the right knee) Radiology Impression Discussion of test interpretation with radiology: I have reviewed the radiologist's reading. Radiologist Impression: 4 view right knee Comparison: None available Findings: Mild to moderate osteoarthritis of the right knee including patellofemoral joint space narrowing of the medial compartment joint space narrowing. No acute displaced fracture. No dislocation. Small effusion present. Calcification anterior to the patella and nonspecific and likely vascular. No radiopaque retained foreign body. IMPRESSION: 1. Small effusion present. 2. Mild-moderate osteoarthritis. Venous duplex ultrasound right lower extremity Comparison: None Findings: The visualized deep veins are fully compressible with normal Doppler color flow and spectral tracings. Increased echogenicity of the superficial soft tissues as can be seen with edema or cellulitis. Imaged contralateral (left) common femoral vein is also patent. IMPRESSION: 1. Negative for right lower extremity deep vein thrombosis. External Record Review External record reviewed: Outpatient record Prescription Management I considered prescription management with: Pain Medication Discharge Plan Discharge Clinical Impression: Knee osteoarthritis Qualifiers: Osteoarthritis type: unspecified Laterality: right Qualified Code(s): M17.11 - Unilateral primary osteoarthritis, right knee Patient Disposition: Home, Self-Care Instructions: Osteoarthritis (ED) Additional Instructions: ultrasound does not show evidence of a blood clot to the leg. X-ray does show some fluid buildup in the joint space known as an effusion, as well as osteoarthritis but no evidence of fracture or dislocation. Be sure to rest over the next few days, apply ice/ heat for 10-15 minutes 3-4 times daily, use the elastic bandage as provided to put compression over the knee and help to decrease with pain/ swelling. You can take ibuprofen 200 mg, 3 tablets (600mg) every 6-8 hours as needed for pain, in addition to Tylenol 500 mg, 2 tablets (1,000mg) every 4-6 hours as needed for pain, but not to exceed 3 doses daily (3,000mg).? follow-up with your primary care doctor. They may consider a course of physical therapy and/or referral to Orthopedics if your pain is not improving. Prescriptions: No Action ondansetron 4 mg tablet,disintegrating 4 mg PO TID PRN (Reason: nausea and vomiting) 5 Days Qty: 10 0RF omeprazole 20 mg capsule,delayed release(DR/EC) 20 mg PO DAILY 30 Days Qty: 30 0RF Gaviscon Extra Strength 254-237.5 mg/5 mL suspension 10 ml PO QID PRN (Reason: dyspepsia) Qty: 355 0RF lorazepam [Ativan] 1 mg tablet 1 mg PO BEDTIME PRN (Reason: anxiety/sleep) Qty: 14 0RF buprenorphine-naloxone [Suboxone] 8-2 mg film 20 mg sublingual QAM albuterol sulfate [Ventolin HFA] 90 mcg/actuation HFA aerosol inhaler 2 puff inhalation Q4-6H PRN lisinopril 5 mg tablet 5 mg PO DAILY hydroxyzine HCl 50 mg tablet 50 mg PO QID PRN levetiracetam 500 mg tablet 500 mg PO BID Referrals: Cem,Heide, [employer]INEER [Primary Care Provider] - Print Language: Wallisian
[2024-10-10] MEDS: Ketorolac Tromethamine 15 MG/ML VIAL IM (02:38)
[2024-10-10 02:43] VITALS: BP 121/75; PULSE 59; RESP 18; TEMP 36.7; O2SAT 100
== END 2024-10-10 02:57 | disposition home or self-care (01) ==
PROVIDERS: Emergency Provider Emergency Medicine; PCP Registered Nurse
DX: M17.11 Unilateral primary osteoarthritis, right knee (principal); R20.0 Anesthesia of skin; R60.0 Localized edema; M25.561 Pain in right knee; Z79.899 Other long term (current) drug therapy
CPT/HCPCS: 73564; 93971; 96372; 99283; 99284; J1885

== ENCOUNTER → 2024-10-09 23:45 | Outpatient (BNV) | payer OTHER, SELFPAY | PROVIDERS: Emergency Provider Emergency Medicine; PCP Registered Nurse; Visit Provider Radiology Neuroradiology | DX: M17.11 Unilateral primary osteoarthritis, right knee (principal); M25.461 Effusion, right knee | CPT/HCPCS: 73564 ==

== ENCOUNTER → 2024-10-10 00:30 | Outpatient (BNV) | payer OTHER, SELFPAY | PROVIDERS: Emergency Provider Emergency Medicine; PCP Registered Nurse; Visit Provider Radiology Neuroradiology | DX: M79.661 Pain in right lower leg (principal); R22.41 Localized swelling, mass and lump, right lower limb | CPT/HCPCS: 93971 ==

== ENCOUNTER 2025-02-16 10:20 | Outpatient (REF) | payer MEDICAID, SELFPAY ==
--- OUTSIDE RECORDS SUMMARY | 2025-02-12 14:00 | XMS_ITS | Encounter Summary ---
Author Organization [employer] Address [address] [place] [address] Care Team Providers Care Operational Risk Consultant Name Role Phone Heide Priest LAB TESTER Primary Care Provider [phone] Tato Munoz Unavailable Reason for Visit * Reason Comments OBAT TEL Encounter Details Date Type Department Care Team ([facility] Contact Info) Description 02/12/2025 2:00 PM EDT Telemedicine [facility] [address] [place] [address] Shaylee García MD [address] [place] [address] Social History Tobacco Use Types Packs/Day Years Used Date Smoking Tobacco: Every Day Cigarettes Alcohol Use Standard Drinks/Week Comments Never 0 (1 standard drink = 0.6 oz pur e alcohol) Depression Answer Date Recorded Patient Health Questionnaire-9 Score 21 01/19/2025 Patient Health Questionnaire-9 Score 21 01/19/2025 Last PHQ-9: Questionnaire Data Not on file 0 01/19/2025 Housing Stability Answer Date Recorded What is your housing situation today? I have rosa mascorro 01/09/[address] you li ve. Do you have problems with any of the following? None of the above 01/09/2025 Food Insecurity Answer Date Recorded Within the past 12 months, y ou worried that your food would run out before you got money to buy more: Often true 01/09/2025 Within the past 12 months,th e food you bought just didn't last and you didn't have enough money to get more: Often true Transportation Answer Date Recorded In the past 12 months, has l ack of transportation kept you from medical appts, meetings, work or from getting things needed for daily living? No 01/09/2025 Utilities Answer Date Recorded In the past 12 months, has t he electric, gas, oil or water company threatened to shut off services in your home? No 01/09/2025 Depression Answer Date Recorded Patient Health Questionnaire-2 Score 5 01/19/2025 Internet Access Answer Date Recorded Internet Access Q1 Yes 01/09/2025 Internet Access Q2 Not on file 01/09/2025 Comments No Sex and Gender Information Value Date Recorded Sex Assigned at Female 03/13/2022 10:34 AM EDT Legal Sex Female 10:34 AM EDT Gender Identity Female 03/13/2022 10:34 AM EDT Sexual Orientation Straight 03/13/2022 10 :34 AM EDT documented as of this encounter Plan of Treatment Upcoming Encounters Date Type Department Care Team (Late st Contact Info) Description 02/20/2025 11:30 AM EDT Office Visit [facility] [address] [place] [phone] Heide Priest FNP [address] [place] [address] 03/12/2025 3:30 PM EDT Office Visit [facility] [address] [place] [phone] Shaylee García MD [address] [place] [address] documented as of this encounter Visit Diagnoses Not on filedocumented in this encounter Additional Health Concerns Assessment Noted Time PHQ-9 Depression Total Score: 21 025 12:26 PM EDT documented as of this encounter Care Teams Operational Risk Consultant Relationship Specialty Start Date End Date Heide Priest FNP [address] [place] [id number] PCP - General Family Medicine 10/16/22 Tato Munoz 01/09/25 documented as of this encounter
--- OUTSIDE RECORDS SUMMARY | 2025-02-16 12:05 | XMS_ITS | Clinical Summary ---
Author Organization [employer] Address [address] [facility] [address] [place] [address] Care Team Providers Care Tool Storage Attendant Name Role Phone Heide Priest [employer] Primary Care Provider [phone] AlexanderTato Unavailable Allergies Active Allergy Reactions Criticality Noted Date Comments Azithromycin Anaphylaxis High 11/06/2017 Pork Allergy High 03/30/2022 Tongue swelling Other reaction(s): HIVES Topiramate 11/06/2017 Other reaction(s): HIVES Tramadol 02/19/2019 Other reaction(s): caused seizures Medications * This document contains information received from the source organization and may not represent a complete record from that organization. Misc. Devices (Pulse Oximeter) misc use 2x/day and prn dyspnea. Call [facility] if < 95% 022 Active EPINEPHrine (Epipen) 0.3 MG/0.3ML injection syringe inject 0.3 milliliter by intramuscular route once as needed for anaphylaxis. Repeat in 10 minutes if no improvement. 018 Active levETIRAcetam (Keppra) 750 MG tablet Take by mouth. Activ e atorvastatin (Lipitor) 20 MG tabletIndications :Hyperlipidemia, unspecified hyperlipidemia type Take 1 tablet (20 mg) by mouth in the morning. 90 tablet 3 023 Active ibuprofen 600 MG tabletIndications :History of root canal procedure Take 1 tablet (600 mg) by mouth every 6 (six) hours if needed for mild pain for up to 20 doses. 20 tablet 023 Active Acetaminophen Extra Strength 500 MG tablet TAKE 1 TABLET BY MOUTH EVERY 6 HOURS NEEDED FOR MILD PAIN FOR 7 DAYS [address] [facility] [address] [facility] 254-237.5 MG/5ML suspension TAKE 10 ML'S BY MOUTH 4 TIMES A DAY NEEDED FOR DYSPEPSIA 024 Active Advair Diskus 250-50 MCG/ACT aerosol powderIndications :Moderate persistent asthma without complication INHALE 1 PUFF TWICE DAILY IN THE MORNING AND IN THE EVENING. RINSE MOUTH AFTER USING. 60 each 2 025 Active polyethylene glycol, PEG, 3350 (Glycolax) 17 GM/SCOOP powder TAKE 17 GM MIXED IN 8 OUNCES OF WATER, COFFEE OR TEA ONCE DAILY NEEDED FOR CONSTIPATION 510 g 2 025 Active Ventolin HFA 108 (90 Base) MCG/ACT inhaler INHALE 2 PUFFS EVERY 6 HOURS NEEDED FOR WHEEZING OR SHORTNESS OF BREATH 18 g 1 025 Active predniSONE (Deltasone) 20 MG tabletIndications :Moderate persistent asthma, unspecified whether complicated 2 tabs po daily for 5 days 10 tablet 025 Active Atrovent HFA 17 MCG/ACT inhalerIndication s:Moderate persistent asthma, unspecified whether complicated INHALE 2 PUFFS EVERY 6 HOURS NEEDED FOR WHEEZING OR SHORTNESS OF BREATH 12.9 g 1 025 Active olmesartan (Benicar) 5 MG tabletIndications :Essential hypertension Take 1 tablet (5 mg) by mouth Once per day. 30 tablet 3 025 Active Blood Pressure kitIndications:Es sential hypertension Use as directed 1 kit Active hydrOXYzine HCl (Atarax) 50 MG tablet TAKE 1 TABLET BY MOUTH FOUR TIMES DAILY NEEDED FOR SLEEP, FOR ANXIETY OR PANIC ATTACK 30 tablet 4 025 Active Buprenorphine HCl-Naloxone HCl (Suboxone) 8-2 MG SL filmIndications:O pioid type dependence, continuous (CMS/HCC) ([facility]) Place 2 Film under the tongue Once per day for 28 days. 56 Film 025 2024 Active divalproex (Depakote ER) 500 MG 24 hr tablet Take 2 tablets by mouth in the morning. Do not crush, chew, or split. 2024 Discontinued lisinopril 5 MG tabletIndications :Essential hypertension TAKE 1 TABLET BY MOUTH EVERY MORNING 90 tablet 1 025 2024 Discontinued hydrOXYzine HCl (Atarax) 50 MG tablet TAKE 1 TABLET BY MOUTH FOUR TIMES DAILY NEEDED FOR SLEEP, ANXIETY, OR PANIC ATTACK 30 tablet 4 025 2024 Discontinued Buprenorphine HCl-Naloxone HCl (Suboxone) 8-2 MG SL filmIndications:O pioid type dependence, continuous ([facility]) ([facility]) Place 2 Film under the tongue Once per day. 56 Film 1 025 2024 Discontinued(R eorder (will not trigger notification to Pharmacy)) Active Problems Problem Noted Date Diagnosed Date Moderate persistent asthma 10/24/2024 Assessment & Plan (10/26/2024 5:01 PM EDT): Pt with recent URI, using rescue inhaler q 4 hours without relief, reports quit tobacco and is using advair as prescribed. Duonebulizer administered in [facility] with sic improvement in aeration but persistent wheezing. Atrovent rx sent as well as 40 mg prednisone x 5 days. May require taper and /or abx for failure to improve. Pt will seek ER assessment for failure to improve or worsening symptoms. COPD exacerbation ([facility]) 08/26/2024 Assessment & Plan (08/26/2024 10:16 AM EDT): No evidence of respiratory distress. SaO2 97% on RA Wheezing improved with albuterol tx -Treat for COPD exacerbation with prednisone and doxy -ER precautions discussed Severe obesity (BMI 35.0-39.9) with comorbidity ([facility]) 07/07/2024 Dental caries 01/29/2023 Healthcare maintenance 12/29/2022 Overview (12/29/2022): Mammo: Ordered 12/2022 Pap:s/p ADRIÁN C-scope: Referred 12/2022 BMD: Routine Immunizations: Tobacco use 12/29/2022 Overview (01/02/2023): Declines cessation at this time Assessment & Plan (08/26/2024 9:20 AM EDT): Agrees to Collaborative Drug Therapy Managment Program with our PharmD, [facility] referral. Placed 08/25/24 Substance abuse in remission ([facility]) Overview (12/29/2022): Stable on suboxone Palpitations 12/29/2022 Overview (01/02/2023): EKG in office WNL Will check initial labs and refer to cardiology for further eval Hyperlipidemia 12/29/2022 Depressive disorder 12/04/2022 Overview (12/29/2022): Established with therapist and psychiatrist Prazosin Amitriptyline Perphenazine Venlafaxine Duloxetine Depakote Seizure disorder ([facility]) 12/04/2022 Overview (12/29/2022): Keppra 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 Initial goal of 30 min walk 3-5x/week. Increase as tolerated. - low-sodium diet (goal: <2g/day) and heart healthy diet such as DASH to reduce BP and prevent ASCVD. - Home BP monitoring 1-2 x day with goal of <140/90. - Seek immediate medical attention for chest pain, palpitations, SOB, syncope, or sudden changes in mental status. - Do not change or discontinue current prescriptions without first consulting health care provider Assessment & Plan (01/02/2023 5:08 AM EDT): BP well controlled Continue current regimen Repeat lipid panel-pending results will plan to restart statin if indicated Moderate persistent asthma without complication 08/09/2018 Overview (12/29/2022): Advair and albuterol Lumbar back pain with radicu lopathy affecting right lower extremity 12/04/2017 Anxiety 11/06/2017 Carpal tunnel syndrome 11/06/2017 Gastroesophageal reflux disease 11/06/2017 Insomnia 11/06/2017 Migraine with aura 11/06/2017 Polyarthropathy 11/06/2017 Resolved Problems Problem Noted Date Diagnosed Date Resolved Date Asthma 12/04/2022 12/29/2022 Calcium oxalate calculus 12/04/2022 Unstable angina pectoris ([facility]/HCC) 12/04/2022 12/29/2022 Chronic back pain 12/04/2022 12/29/2022 Kidney stone 03/30/2022 12/29/2022 Panic attack 11/06/2017 12/29/2022 Severe recurrent major depre ssion without psychotic features ([facility]) 11/06/2017 12/29/2022 Encounters Date Type Department Care Team Description 02/12/2025 2:00 PM EDT Telemedicine [facility] [place] [address] Shaylee García MD 02/12/2025 Travel 02/03/2025 Patient Outreach [facility] [address] [facility] [place] [address] Heide Priest FNP Care Coordination (C3CM/CHW Wesley Haywood f/u call_lvm ) 02/03/2025 Refill [facility] [place] [address] Shaylee García MD Opioid type dependence, continuous ([facility]) 02/03/2025 Refill [facility] [place] [address] Heide Priest FNP 01/19/2025 10:45 AM EDT Office Visit [facility] [place] [address] Heide Priest FNP Essential hypertension (Primary Dx); Seizure disorder ([facility]); Encounter for screening mammogram for breast cancer; Encounter for screening for malignant neoplasm of colon; Class 3 severe obesity due to excess calories with serious comorbidity and body mass index (BMI) of 40.0 to 44.9 in adult 01/19/2025 Travel 01/16/2025 Telephone [facility] [place] [address] Heide Priest FNP Chart Prep 01/09/2025 Patient Outreach [facility] MEDICINE [address] [place] [phone] [place] [facility] Care Coordination ([facility]/W Tato Munoz, Chart review ) 01/09/2025 Patient Outreach [facility] MEDICINE [address] [place] [address] [place] [facility] Care Coordination (C3/W Tato Munoz, Initial outreach_enrolled ) 01/09/2025 Patient Outreach [facility] MED & PEDS [address] [place] [address] [facility] Pre-[facility] Planning (SDOH positive. Tobacco screening negative. ) 12/18/2024 3:00 PM EDT Office Visit [address] [address] Shaylee García MD Uncomplicated opioid dependence ([facility]) (Primary Dx) 12/18/2024 Travel 12/12/2024 Telephone [facility] MEDICINE [address] [place] [address] [facility] 12/08/2024 Refill [facility] MEDICINE [address] [place] [address] Shaylee García MD Opioid type dependence, continuous (CMS/HCC) 12/06/2024 Refill [facility] [address] [place] [phone] Sujey Mast, KATHI Moderate persistent asthma, unspecified whether complicated 11/17/[address] [address] [place] [facility] No Show from Last 3 Months Immunizations Immunization Administration Dates Next Due Influenza injectable quadriv alent preservative free 06/29/2022,03/04/2020,12/24/2018,04/16 Influenza, IIV3, injectable 05/26/2018 Moderna Covid-19 Vaccine 12+ 12/22/2021,02/18/20 21,09/23/2020 Moderna Covid-19 Vaccine 6+ Bivalent 06/29/2022 Pneumococcal Polysaccharide PPSV23 03/12/2011 Tdap 03/04/2020 Family History Medical History Relation Name Comments Heart attack Father Heart attack Maternal Grandmother Heart attack Mother Relation Name Status Comments Father Maternal Grandmother Mother Social History Tobacco Use Types Packs/Day Years Used Date Smoking Tobacco: Every Day Cigarettes Tobacco Cessation:Ready to Q uit: Not Asked; Counseling Given: Not Answered Alcohol Use Standard Drinks/Week Comments Never 0 [...] Orientation Straight 03/13/2022 10 :34 AM EDT Last Filed Vital Signs Vital Sign Reading Time Taken Comments Blood Pressure 138/90 01/19/2025 10:55 AM EDT Pulse 84 01/19/2025 10:55 AM EDT Temperature 36.2 C (97.2 F) 01/19/2025 10:55 AM EDT Respiratory Rate 20 01/19/2025 10:55 AM EDT Oxygen Saturation 97% 10/24/2024 3:53 PM EDT Inhaled Oxygen Concentration - - Weight 103 kg (226 lb 3.2 oz) 01/19/2025 10:55 A M EDT Height 154.9 cm (5' 1 ) 01/19/2025 10:55 AM EDT Body Mass Index 42.74 01/19/2025 10:55 AM EDT Plan of Treatment Upcoming Encounters Date Type Department Care Team (Late st Contact Info) Description 02/20/2025 11:30 AM EDT Office Visit [facility] MEDICINE [address] [place] [phone] Heide Priest FNP [address] [place] [address] 03/12/2025 3:30 PM EDT Office Visit [facility] MEDICINE [address] [place] [address] Shaylee García MD [address] [place] [address] Health Maintenance Due Date Last Done Comments CT Colonography 1977 Colonoscopy 1977 Colorectal Cancer Screening 1977 Dental Oral Exam 1977 Dental Prophylaxis 1977 Dental X-Ray: Full Mouth 1977 FIT DNA/Cologuard 1977 FIT 1977 FOBT 1977 Sigmoidoscopy 1977 Disability Screening 1977 Alcohol/Substance Use Screening 1989 Family Planning (PISQ) 1992 Hepatitis B Vaccines (1 of 3 - 19+ 3-dose series) 1996 Pneumococcal Vaccine: Pediatrics (0 to 5 Years) and At-Risk Patients (6 to 49) Years (2 of 2 - PCV) 03/12/2012 03/12/2011 Mammogram 01/24/2024 01/23/2023 Dental X-Ray: Bitewings 09/20/2024 09/20/19 24, 02/20/2023, 04/18/2022 COVID-19 Vaccine ( season) 2025 06/29/2022, 12/22/2021, 02/17/2021, Additional history exists Influenza Vaccine (#1) 2025 3, 03/04/2020, 12/24/2018, Additional history exists Depression Monitoring 07/19/2025 01/19/2025, 025 SDOH Screening 01/09/2026 01/09/2025 Tobacco Screening 01/19/2026 01/19/2025 Zoster Vaccines (1 of 2) 07/29/2027 Lipid Panel 12/20/2027 12/19/2022, 03/03/2020 DTaP/Tdap/Td Vaccines (2 - Td or Tdap) 03/04/2030 03/04/2020 RSV Patients and Patients Aged 60 years or older (1 - 1-dose 75+ series) 2052 HIV Screening Completed 03/03/2020 Hepatitis C Screening Completed 03/03/2020 Cervical Cancer Screening Discontinued Pap Smear Discontinued 06/04/2021 HIB Vaccines Aged Out No longer eligi ble based on patient's age to complete this topic HPV Vaccines Aged Out No longer eligi ble based on patient's age to complete this topic HPV/Cotest Discontinued Hepatitis A Vaccines Aged Out No long er eligible based on patient's age to complete this topic IPV Vaccines Aged Out No longer eligi ble based on patient's age to complete this topic Meningococcal B Vaccine Aged Out No l onger eligible based on patient's age to complete this topic Meningococcal Vaccine Aged Out No soham haile eligible based on patient's age to complete this topic RSV under 20 months Aged Out No longe r eligible based on patient's age to complete this topic Rotavirus Vaccines Aged Out No longer eligible based on patient's age to complete this topic Procedures Procedure Name Priority Date/Time Associated Diagnosis Comments POCT TANIA-14 URINE DRUG SCREEN Routine 12/18/2024 3:02 PM EDT Uncomplicated opioid dependence (CMS/HCC) BITEWING - SINGLE RADIOGRAPHIC IMAGE Routine 09/20/2023 11:30 AM EDT BI MAMMOGRAM SCREENING TOMOSYNTHESIS BILATERAL Routine 01/23/2023 4:23 PM EDT LIPID PANEL, STANDARD Routine 12/19/2022 11:19 AM EDT Hyperlipidemia, unspecified hyperlipidemia type HM PAP/HPV Routine 06/04/2021 Z[facility] HISTORICAL HEPATITIS C AB W/REFL TO HCV RNA, QN, PCR Routine 03/03/2020 2:05 PM EDT HIV 1/2 ANTIGEN/ANTIBODY, FOURTH GENERATION W/RFL Routine 03/03/2020 2:05 PM EDT from Last 3 Months or Most Recently Relevant to Health Maintenance Results * (ABNORMAL) POCT TANIA-14 Urine Drug Screen (12/18/2024 3:02 PM EDT) THC Positive(A) Negative Cocaine Screen, Urine Negative Negative Opiate Screen, Urine Negative Negative Methamphetamine Screen Urine Negative Negative Amphetamine Screen, Urine Negative Negative Benzodiazepines Screen, Urine Negative Negative Barbiturate Screen, Urine Negative Negative Methadone Screen, Urine Negative Negative Buprenophine Screen, Urine Positive(A) Negative TCA, Urine Negative Negative MDMA Urine Negative Negative ng/mL Oxycodone Screen, Urine Negative Negative Phencyclidine (PCP), Urine Negative Negative Fentanyl, Urine Negative Negative Urine Urine specimen obtained by clean catch procedure / Unknown 12/18/2024 3:02 PM EDT Shaylee García MD POINT OF CARE TEST ENTER/LARISSA T ORDERABLES Final Result * BI Mammogram Screening Tomosynthesis Bilateral (01/23/2023 4:23 PM EDT) Anatomical Region Laterality Modality Breast Bilateral Mammography 01/23/2023 4:23 PM EDT Narrative 02/08/2023 2:45 PM EDT [facility] [address] [place], [place] [address] Mammography Report Signed Patient: Bri Berrios MR#: [id number] 100 : 1975 Acct:[id number] Age/Sex: 47 / F ADM Date: 01/23/23 Loc: [facility] Attending Dr: Heide Priest [employer] Ordering Physician: Heide Priest [employer] Results: 1Nega tive Date of Service: 01/23/23 Follow Up: 1 Year From Orig inal Mammogram Procedure(s): MM tomosynthesis screening BI Accession Number(s): [id number] cc: Heide Priest [employer] EXAMINATION: MM SCREENING DIGITAL BREAST TOMOSYNTHESIS, BILATERAL CLINICAL INFORMATION: Screening. Asymptomatic. COMPARISON: Mammography: This is a baseline study TECHNIQUE: Digital breast tomosynthesis is performed in both the craniocaudal and mediolateral oblique views along with computer-aided detection (CAD). Synthesized 2D images are generated from the tomosynthesis. FINDINGS: The breasts are almost entirely fatty (ACR BI-RADS breast composition Category a). There are no significant masses, abnormal calcifications, or other abnormalities. MM/MM tomosynthesis screening BI IMPRESSION: No mammographic evidence of malignancy. ASSESSMENT: BI-RADS BI-RADS 1 - Negative RECOMMENDATION: Routine annual mammography screening. 1 year F/U This examination should not preclude the clinical evaluation of a suspicious palpable abnormality. This patient's information was entered into a reminder system with a target due date for their next mammogram. 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 [address] Mammography Report Signed Patient: Yahaira Berrios#: [id number] 100 : 1975Acct:[id number] Age/Sex: 47 / FADM Date: 01/23/23 Loc: [facility] Attending Dr: Heide ELLINGTON Ordering Physician: Heide Priest FNPResults: 1Nega tive Date of Service: 01/23/23Follow Up: 1 Year From Orig inal Mammogram Procedure(s): MM tomosynthesis screening BI Accession Number(s): [id number] cc: [facility] EXAMINATION: MM SCREENING DIGITAL BREAST TOMOSYNTHESIS, BILATERAL CLINICAL INFORMATION: Screening. Asymptomatic. COMPARISON: Mammography: This is a baseline study TECHNIQUE: Digital breast tomosynthesis is performed in both the craniocaudal and mediolateral oblique views along with computer-aided detection (CAD). Synthesized 2D images are generated from the tomosynthesis. FINDINGS: The breasts are almost entirely fatty (ACR BI-RADS breast composition Category a). There are no significant masses, abnormal calcifications, or other abnormalities. MM/MM tomosynthesis screening BI IMPRESSION: No mammographic evidence of malignancy. ASSESSMENT: BI-RADS BI-RADS 1 - Negative RECOMMENDATION: Routine annual mammography screening. 1 year F/U This examination should not preclude the clinical evaluation of a suspicious palpable abnormality. This patient's information was entered into a reminder system with a target due date for their next mammogram. 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[facility] [employer] IMG BI PROCEDURES Final Resul t * Lipid Panel, Standard (12/19/2022 11:19 AM EDT) Triglycerides 61 mg/dL [facility] Comment:Desirable Triglyceri de: less than 150 mg/dLBorderline High Triglyceride 150-199 mg/dLHigh Triglyceride: 200-499 mg/dLVery High Triglyceride: greater than or equal to 5OO mg/dL Cholesterol 187 mg/dL [facility] Comment:Desirable Cholestero l: less than 200 mg/dLBorderline High Cholesterol: 200-239 mg/dLHigh Cholesterol: greater than 239 mg/dL LDL Cholesterol Calculated 123 mg/dl [facility] Comment:Desirable LDL: less than 100 mg/dLNear Optimal/Above Optimal LDL: 110- 129 mg/dLBorderline High LDL: 130-159 mg/dLHigh LDL: 160-189 mg/dLVery High LDL: greater than or equal to 190 mg/dL HDL Cholesterol 52 mg/dL [facility] Comment:Desirable HDL: great er than 40 mg/dL Note: This HDL assay may give artificially low results in patients with liver disease. Blood Venous blood specimen / Unknown 12/19/2022 11:19 AM EDT 12/19/2022 1:20 PM EDT [facility] [employer] LAB BLOOD ORDERABLES Final Re sult [facility] [address] [place] [address] [phone] * Pap Smear (06/04/2021) Pap smear Performed, hysterectomy Historical Provider HEALTH MAINTENANCE Final Result * HEPATITIS C AB W/REFL TO HCV RNA, QN, PCR (03/03/2020 2:05 PM EDT) HEPATITIS C ANTIBODY NON-REACT FIDEL NON-REACT FIDEL [facility] INDEX 0.02 <1.00 [facility] Comment: HCV antibody was non-reactive. There is no laboratory evidence of HCV infection. In most cases, no further action is required. However, if recent HCV exposure is suspected, a test for HCV RNA (test code 16189) is suggested. For additional information please refer to http://[employer]/faq/URL47f8 (This link is being provided for informational/ educational purposes only.) HEPATITIS C ANTIBODY NON-REACT FIDEL NON-REACT FIDEL [facility] INDEX 0.02 <1.00 [facility] Comment: HCV antibody was non-reactive. There is no laboratory evidence of HCV infection. In most cases, no further action is required. However, if recent HCV exposure is suspected, a test for HCV RNA (test code 41459) is suggested. For additional information please refer to http://[employer]/faq/OAK69l6 (This link is being provided for informational/ educational purposes only.) HEPATITIS C ANTIBODY NON-REACT FIDEL NON-REACT FIDEL [facility] INDEX 0.02 <1.00 [facility] Comment: HCV antibody was non-reactive. There is no laboratory evidence of HCV infection. In most cases, no further action is required. However, if recent HCV exposure is suspected, a test for HCV RNA (test code 80301) is suggested. For additional information please refer to http://[employer]/faq/CFB51s9 (This link is being provided for informational/ educational purposes only.) 03/03/2020 2:05 PM EDT us Historical Provider MD HISTORICAL/NON ORDERABLE LABS Final Result [facility] [address] [place] [address], * HIV 1/2 ANTIGEN/ANTIBODY,FOURTH GENERATION W/RFL (03/03/2020 2:05 PM EDT) HIV-1/2 ANTIGEN AND ANTIBODIES, 4TH GENERATION W/ REFLEX NON-REACT FIDEL NON-REACT FIDEL [facility] Comment: HIV-1 antigen and HIV-1/HIV-2 antibodies were not detected. There is no laboratory evidence of HIV infection. PLEASE NOTE: This information has been disclosed to you from records whose confidentiality may be protected by state law. If your state requires such protection, then the state law prohibits you from making any further disclosure of the information without the specific written consent of the person to whom it pertains, or as otherwise permitted by law. A general authorization for the release of medical or other information is NOT sufficient for this purpose. For additional information please refer to [email or web address]/faq/SHS602 (This link is being provided for informational/ educational purposes only.) The performance of this assay has not been clinically validated in patients less than 2 years old. HIV-1/2 ANTIGEN AND ANTIBODIES, 4TH GENERATION W/ REFLEX NON-REACT FIDEL NON-REACT FIDEL [facility] Comment: HIV-1 antigen and HIV-1/HIV-2 antibodies were not detected. There is no laboratory evidence of HIV infection. PLEASE NOTE: This information has been disclosed to you from records whose confidentiality may be protected by state law. If your state requires such protection, then the state law prohibits you from making any further disclosure of the information without the specific written consent of the person to whom it pertains, or as otherwise permitted by law. A general authorization for the release of medical or other information is NOT sufficient for this purpose. For additional information please refer to http://[employer]/faq/XBN488 (This link is being provided for informational/ educational purposes only.) The performance of this assay has not been clinically validated in patients less than 2 years old. HIV-1/2 ANTIGEN AND ANTIBODIES, 4TH GENERATION W/ REFLEX NON-REACT FIDEL NON-REACT FIDEL [facility] Comment: HIV-1 antigen and HIV-1/HIV-2 antibodies were not detected. There is no laboratory evidence of HIV infection. PLEASE NOTE: This information has been disclosed to you from records whose confidentiality may be protected by state law. If your state requires such protection, then the state law prohibits you from making any further disclosure of the information without the specific written consent of the person to whom it pertains, or as otherwise permitted by law. A general authorization for the release of medical or other information is NOT sufficient for this purpose. For additional information please refer to http://[employer]/faq/JAR603 (This link is being provided for informational/ educational purposes only.) The performance of this assay has not been clinically validated in patients less than 2 years old. 03/03/2020 2:05 PM EDT us Historical Provider LAB BLOOD ORDERABLES Viktoriya jang Result [facility] Anywhere [address] from Last 3 Months or Most Recently Relevant to Health Maintenance Insurance [facility] C3 Care Teams Tool Storage Attendant Relationship Specialty Start Date End Date Heide PriestRAKEL [address] [place] [address] PCP - General Family Medicine 10/16/22 Tato Munoz 01/09/25
--- OUTSIDE RECORDS SUMMARY | 2025-02-16 12:05 | XMS_ITS | Encounter Summary ---
Author Organization [employer] Address [address] [facility] 7t [place] [address] Care Team Providers Care Private Mortgage Banker Safe Name Role Phone Bria Bright [facility] Primary Care Provider Aysha Heide Osborne [facility] Primary Care Provider [phone] Tato Munoz Unavailable Encounter Details Date Type Department Care Team (Late st Contact Info) Description 04/18/2022 Orders Only [facility] ADULT DENTAL [address] [place] [address] Luciano-RamirezVandana finney, DDS [address] [place] [address] Periapical abscess without sinus (Primary Dx) Social History Tobacco Use Types Packs/Day Years Used Date Smoking Tobacco: Every Day Cigarettes Comments Unknown Sex and Gender Information Value Date Recorded Sex Assigned at Female 03/13/2022 10:34 AM EDT Legal Sex Female 10:34 AM EDT Gender Identity Female 03/13/2022 10:34 AM EDT Sexual Orientation Straight 03/13/2022 10 :34 AM EDT COVID-19 Exposure Response Date Recorded In the last 10 days, have yo u been in contact with someone who was confirmed or suspected to have Coronavirus/COVID-19? No / Unsure 04/18/2022 12:54 PM EST documented as of this encounter Plan of Treatment Upcoming Encounters Date Type Department Care Team (Late st Contact Info) Description 02/20/2025 11:30 AM EDT Office Visit [facility] MEDICINE [address] [place] [address] Heide Priest [facility] [address] [place] [address] 03/12/2025 3:30 PM EDT Office Visit [facility] MED[facility]INE [address] [place], [place] [phone] Shaylee García MD 230 [place], [place] [phone] documented as of this encounter Visit Diagnoses Diagnosis Periapical abscess without sinus- Primary documented in this encounter Care Teams Private Mortgage Banker Safe Relationship Specialty Start Date End Date Bria Bright FNP PCP - General Family Medicine 03/07/21 10/15/22 BurkeHeide FNP [address] [place] [address] PCP - General Family Medicine 10/16/22 Tato Munoz 01/09/25 documented as of this encounter
--- OUTSIDE RECORDS SUMMARY | 2025-02-16 12:05 | XMS_ITS | Encounter Summary ---
Author Organization [employer] Address [address] [facility] 7t [place] [address] Care Team Providers Care Financial Institution Branch Manager Name Role Phone Cem [facility] Primary Care Provider [phone] Tato Munoz Unavailable Reason for Visit * Reason Onset Date Comments Nurse Triage 10/08/2024 Encounter Details Date Type Department Care Team ([facility] st Contact Info) Description 10/08/2024 Telephone [facility] [address] [place], [place] [phone] [place], [facility] [address] [place] [address] Nurse Triage Social History Tobacco Use Types Packs/Day Years [...] AM EDT documented as of this encounter Miscellaneous Notes * Telephone Encounter - Becyk Foster - 10/08/2024 10:35 AM EDT Symptom: Leg Pain - Not From Injury Outcome: Schedule an urgent appointment (within 1 hour) or talk to a nurse or provider soon Reason: Severe pain now The caller accepted this outcome. Pt reported she feels a burning sensation with severe pain radiating from her thighs down her leg. States the pain is intense and causing discomfort can't sleep at night documented in this encounter Plan of Treatment Upcoming Encounters Date Type Department Care Team (Late st Contact Info) Description 02/20/2025 11:30 AM EDT Office Visit [facility] [address] [place] [address] Heide Priest FNP [address] [place] [address] 03/12/2025 3:30 PM EDT Office Visit [facility] [address] [place] [address] Shaylee García MD 230 [place] [address] documented as of this encounter Visit Diagnoses Not on filedocumented in this encounter Additional Health Concerns Assessment Noted Time PHQ-9 Depression Total Score: 8 12/20/19 23 10:14 AM EDT documented as of this encounter Care Teams Financial Institution Branch Manager Relationship Specialty Start Date End Date Heide Priest FNP [address] [place] [address] PCP - General Family Medicine 10/16/22 Tato Munoz 01/09/25 documented as of this encounter
--- OUTSIDE RECORDS SUMMARY | 2025-02-16 12:05 | XMS_ITS | Encounter Summary ---
Author Organization [employer] Address [address] [facility] 7t [place] [address] Care Team Providers Care Circuitry Negative Inspector Name Role Phone Heide Priest SUPERVISOR BLAST FURNACE Primary Care Provider [phone] Tato Munoz Unavailable Reason for Visit * Reason Comments Med Refill Encounter Details Date Type Department Care Team ([facility] st Contact Info) Description 08/23/2023 Refill [facility] MEDICINE 230 [place], [place] [phone] Dat Royal MD 230 [place], [place] [phone] Opioid type dependence, continuous (CMS/HCC) Social History [...] Description 02/20/2025 11:30 AM EDT Office Visit [facility] MEDICINE [address] [place] [address] Heide Priest FNP [address] [place] [address] 03/12/2025 3:30 PM EDT Office Visit [facility] MEDICINE [address] [place] [address] Shaylee García MD [address] [place] [address] documented as of this encounter Visit Diagnoses Diagnosis Opioid type dependence, continuous (CMS/HCC) (HCC) Opioid type dependence, continuous documented in this encounter Additional Health Concerns Assessment Noted Time PHQ-9 Depression Total Score: 8 12/20/19 23 10:14 AM EDT documented as of this encounter Care Teams Circuitry Negative Inspector Relationship Specialty Start Date End Date Heide Priest FNP [address] [place] [address] PCP - General Family Medicine 10/16/22 Tato Munoz 01/09/25 documented as of this encounter
--- OUTSIDE RECORDS SUMMARY | 2025-02-16 12:05 | XMS_ITS | Clinical Summary ---
Author Organization [facility] [place] [address] Care Team Providers Care Roughener Name Role Phone Unavailable Primary Care Provider Unavailabl e Social History Tobacco Use Types Packs/Day Years Used Date Smoking Tobacco: Never Assessed Comments Unknown Sex and Gender Information Value Date Recorded Sex Assigned at Not on file Legal Sex Female 2:10 PM EST Gender Identity Not on file Sexual Orientation Not on file Plan of Treatment Health Maintenance Due Date Last Done Comments Breast Cancer Screening 1977 DTaP,Tdap,and Td Vaccines (1 - Tdap) 1996 Hepatitis B Vaccines (1 of 3 - 19+ 3-dose series) 1996 Cervical Cancer Screening: P ap Smear 1998 Depression Screening 05/14/2024 COVID-19 Vaccine (1 - 2023-2 5 season) 2025 Influenza Vaccine (#1) 2025 RSV Immunization Adult Patie nts (1 - 1-dose 75+ series) 2052 HIB Vaccines Aged Out No longer eligi ble based on patient's age to complete this topic HPV Vaccines Aged Out No longer eligi ble based on patient's age to complete this topic Hepatitis A Vaccines Aged Out No long er eligible based on patient's age to complete this topic IPV Vaccines Aged Out No longer eligi ble based on patient's age to complete this topic MMR Vaccines Aged Out No longer eligi ble based on patient's age to complete this topic Meningococcal ACWY Vaccine Aged Out N o longer eligible based on patient's age to complete this topic Meningococcal B Vaccine Aged Out No l onger eligible based on patient's age to complete this topic Pneumococcal Vaccine: Pediat rics (0 to 5 Years) and At-Risk Patients (6 to 49 Years) Aged Out No longer eligible b ased on patient's age to complete this topic RSV Immunization Patients Un kelsie 20 months Aged Out No longer eligible b ased on patient's age to complete this topic Varicella Vaccines Aged Out No longer eligible based on patient's age to complete this topic
--- OUTSIDE RECORDS SUMMARY | 2025-02-16 12:05 | XMS_ITS | Encounter Summary ---
Author Organization [employer] Address [address] [facility] 7t [place] [address] Care Team Providers Care Census Taker Name Role Phone Bria Bright [facility] Primary Care Provider Asyha Heide Osborne [facility] Primary Care Provider [phone] Tato Munoz Unavailable Encounter Details Date Type Department Care Team (Late st Contact Info) Description 05/11/2022 Orders Only [facility] MEDICINE [address] [place] [address] Eveline Gao RN Social History Tobacco Use Types Packs/Day Years [...] suspected to have Coronavirus/COVID-19? No / Unsure 05/09/2022 9:09 AM EST documented as of this encounter Plan of Treatment Upcoming Encounters Date Type Department Care Team (Late st Contact Info) Description 02/20/2025 11:30 AM EDT Office Visit [address] [phone] Heide rPiest [address] [address] 03/12/2025 3:30 PM EDT Office Visit [address] [address] Shaylee García MD 230 [place] [address] documented as of this encounter Visit Diagnoses Not on filedocumented in this encounter Care Teams Census Taker Relationship Specialty Start Date End Date Bria Bright FNP PCP - General Family Medicine 03/07/21 10/15/22 [place] F[place] 230 [place] [address] PCP - General Family Medicine 10/16/22 Tato Munoz 01/09/25 documented as of this encounter
--- OUTSIDE RECORDS SUMMARY | 2025-02-16 12:05 | XMS_ITS | Encounter Summary ---
Author Organization [employer] Address [address] [facility] 7t [place] [address] Care Team Providers Care Circular Saw Operator Name Role Phone Bria Bright [facility] Primary Care Provider Aysha Heide Osborne [facility] Primary Care Provider [phone] Tato Munoz Unavailable Reason for Visit * Reason Comments Med Refill Encounter Details Date Type Department Care Team ([facility] Contact Info) Description 09/18/2022 Refill [facility] [address] [place] [address] Bria Bright FNP Social History Tobacco Use Types Packs/Day Years [...] suspected to have Coronavirus/COVID-19? No / Unsure 08/31/2022 1:07 PM EDT documented as of this encounter Plan of Treatment Upcoming Encounters Date Type Department Care Team ([facility] Contact Info) Description 02/20/2025 11:30 AM EDT Office Visit [facility] 230 [place] [address] Heide Priest [facility] 230 [place] [address] 03/12/2025 3:30 PM EDT Office Visit [facility] [address] [facility] [place] [address] Shaylee García MD 230 [place] [address] documented as of this encounter Visit Diagnoses Not on filedocumented in this encounter Care Teams Circular Saw Operator Relationship Specialty Start Date End Date Bria Bright FNP PCP - General Family Medicine 03/07/21 10/15/22 [place] FNP 230 [facility] [place] [address] PCP - General Family Medicine 10/16/22 Tato Munoz 01/09/25 documented as of this encounter
--- OUTSIDE RECORDS SUMMARY | 2025-02-16 12:05 | XMS_ITS | Encounter Summary ---
Author Organization [employer] Address [address] [facility] [address] 7t [place] [address] Care Team Providers Care Tool Maintenance Technician Name Role Phone Heide Priest SOFTBALL COACH Primary Care Provider [phone] Tato Munoz Unavailable Reason for Visit * Reason Comments Med Refill Encounter Details Date Type Department Care Team ([facility] Contact Info) Description 05/31/2023 Refill [facility] MED & PEDS [address] [place], [place] [phone] Shaylee García MD 230 [place] [address] Opioid type dependence, continuous (CMS/HCC) Social History [...] Description 02/20/2025 11:30 AM EDT Office Visit [facility] MEDICINE [address] [place] [address] [place] [address] [address] 03/12/2025 3:30 PM EDT Office Visit [facility] MEDICINE [address] [place] [address] Shaylee García MD [address] [place] [address] documented as of this encounter Visit Diagnoses Diagnosis Opioid type dependence, continuous (CMS/HCC) (HCC) Opioid type dependence, continuous documented in this encounter Additional Health Concerns Assessment Noted Time PHQ-9 Depression Total Score: 8 12/20/19 23 10:14 AM EDT documented as of this encounter Care Teams Tool Maintenance Technician Relationship Specialty Start Date End Date [facility] [address] [place] [address] PCP - General Family Medicine 10/16/22 Tato Munoz 01/09/25 documented as of this encounter
--- OUTSIDE RECORDS SUMMARY | 2025-02-16 12:05 | XMS_ITS | Encounter Summary ---
Author Organization [employer] Address 75 [facility] 7t [place] [address] Care Team Providers Care Poultry Processing Supervisor Name Role Phone Heide Priest SALAD BAR CLERK Primary Care Provider [phone] Tato Munoz Unavailable Encounter Details Date Type Department Care Team (Latest Contact Info) Description 02/12/2025 Travel Social History Tobacco Use Types Packs/Day Years [...] 11:30 AM EDT Office Visit [facility] MEDICINE [address] [place] [address] Heide Priest FNP 230 [place] [address] 03/12/2025 3:30 PM EDT Office Visit [facility] MEDICINE [address] [place] [address] Shaylee García MD 230 [place] [address] documented as of this encounter Visit Diagnoses Not on filedocumented in this encounter Additional Health Concerns Assessment Noted Time PHQ-9 Depression Total Score: 21 025 12:26 PM EDT documented as of this encounter Care Teams Poultry Processing Supervisor Relationship Specialty Start Date End Date Heide Priest FNP [address] [place] [address] PCP - General Family Medicine 10/16/22 Tato Munoz 01/09/25 documented as of this encounter
--- OUTSIDE RECORDS SUMMARY | 2025-02-16 12:05 | XMS_ITS | Encounter Summary ---
Author Organization [employer] Address [address] [facility] [address] 7t [place] [address] Care Team Providers Care Branch Employment Coordinator Name Role Phone Heide rPiest SUPERVISOR JOINERS Primary Care Provider [phone] Tato Munoz Unavailable Reason for Visit * Reason Comments Med Refill Encounter Details Date Type Department Care Team ([facility] Contact Info) Description 06/07/2023 Refill [facility] MED & PEDS [address] [place], [place] [phone] Shaylee García MD 230 [place] [address] Opioid type dependence, continuous (CMS/HCC) Social History [...] Description 02/20/2025 11:30 AM EDT Office Visit [facility] MEDICINE [address] [place] [address] [place] [address] [address] 03/12/2025 3:30 PM EDT Office Visit [facility] MEDICINE [address] [place] [address] Shaylee García MD [address] [place] [address] documented as of this encounter Visit Diagnoses Diagnosis Opioid type dependence, continuous (CMS/HCC) (HCC) Opioid type dependence, continuous documented in this encounter Additional Health Concerns Assessment Noted Time PHQ-9 Depression Total Score: 8 12/20/19 23 10:14 AM EDT documented as of this encounter Care Teams Branch Employment Coordinator Relationship Specialty Start Date End Date [facility] [address] [place] [address] PCP - General Family Medicine 10/16/22 Tato Munoz 01/09/25 documented as of this encounter
--- OUTSIDE RECORDS SUMMARY | 2025-02-16 12:05 | XMS_ITS | Encounter Summary ---
Author Organization [employer] Address [address] [facility] 7t [place] [address] Care Team Providers Care Weigh Machine Operator Name Role Phone Bria Bright [facility] Primary Care Provider Aysha Heide Osborne [facility] Primary Care Provider [phone] Tato Munoz Unavailable Encounter Details Date Type Department Care Team (Late st Contact Info) Description 05/01/2022 Abstract [facility] ADULT DENTAL [address] [place] [address] Milton Calzada, DMD [address] [place] [address] Social History Tobacco Use Types Packs/Day Years [...] suspected to have Coronavirus/COVID-19? No / Unsure 05/02/2022 7:58 AM EST documented as of this encounter Plan of Treatment Upcoming Encounters Date Type Department Care Team (Late Contact Info) Description 02/20/2025 11:30 AM EDT Office Visit [facility] MEDICINE [address] [place], [place] [phone] Heide Priest [facility] 230 [place], [place] [phone] 03/12/2025 3:30 PM EDT Office Visit [facility] MEDICINE [address] [facility] [place] [address] Shaylee García MD 230 [place], [place] [phone] documented as of this encounter Visit Diagnoses Not on filedocumented in this encounter Care Teams Weigh Machine Operator Relationship Specialty Start Date End Date Bria Bright FNP PCP - General Family Medicine 03/07/21 10/15/22 [place] FNP 230 [facility] [place] [address] PCP - General Family Medicine 10/16/22 Tato Munoz 01/09/25 documented as of this encounter
--- OUTSIDE RECORDS SUMMARY | 2025-02-16 12:05 | XMS_ITS ---
Author Organization [employer] Address [address] [facility] 7t [place] [address] Care Team Providers Care Edge Cutting Machine Operator Name Role Phone Heide Priest NURSE EXTERN Primary Care Provider [phone] Tato Munoz [facility] Status:Enrolled (Active) Start date:01/09/2025 Enrollment date:01/09/2025 Overview [employer] Case Team Name Relationship Phone Tato Munoz(Responsible Staff) [phone] Continued Care and Services Coordination
[2025-02-16 14:03] LABS: Alanine Aminotransferase 14 U/L (0-31); Albumin Level 4.0 g/dL (3.5-5.0); Alkaline Phosphatase 61 U/L (39-117); Anion Gap 12 (12-20); Aspartate Amino Transferase 20 U/L (5-31); Blood Urea Nitrogen 17 mg/dL (9-16); Calcium 9.2 mg/dL (8.4-10.2); Carbon Dioxide 27 mmol/L (22-29); Chloride 107 mmol/L (96-108); Cholesterol 245 mg/dL (<200); Estimated Glomerular Filt Rate > 60; HDL Cholesterol 44 mg/dL (>40); Potassium 3.8 mmol/L (3.3-5.1); Sodium 142 mmol/L (135-145); Total Protein 7.1 g/dL (6.5-8.0); Triglycerides 78 mg/dL (<150)
== END 2025-02-16 10:21 | disposition home or self-care (01) ==
LOC: HO.HHCL 10:20
PROVIDERS: PCP Registered Nurse; Visit Provider Registered Nurse
DX: I10 Essential (primary) hypertension (principal); E66.813 Obesity, class 3; Z68.41 Body mass index [BMI] 40.0-44.9, adult
CPT/HCPCS: 36415; 80053; 80061; 83036

== ENCOUNTER 2025-03-22 21:41 | Emergency (ER) | payer MEDICAID, SELFPAY ==
--- NOTE | ~2025-03-22 | XR_ITS ---
CLINICAL HISTORY: Fall 4 view, chest and right ribs Comparison: CR/SC/SR - XR CHEST 2 VIEWS - 05/22/23 01:42 EST Findings: Bones intact. No dislocations. The visualized lungs are normal. IMPRESSION: 1. No acute fractures. This document has been electronically signed by: Darby Tran MD on 03/22/2025 23:15:23
[2025-03-22 21:53] VITALS: BP 125/80; BP 141/65; PULSE 56; PULSE 60; RESP 18; TEMP 37; O2SAT 95; O2SAT 98; BMI 40.4
--- OUTSIDE RECORDS SUMMARY | 2025-03-22 22:22 | XMS_ITS | Encounter Summary ---
Author Organization [employer] Address [address] [facility] 7t [place] [address] Care Team Providers Care Mending Carrier Name Role Phone Bria Bright Donna [facility] Primary Care Provider Aysha hernestotamicagreer [place] [facility] Primary Care Provider [phone] Tato Munoz Unavailable Encounter Details Date Type Department Care Team (Late st Contact Info) Description 05/11/2022 Orders Only [facility] MEDICINE [address] [place] [address] [phone] Eveline Gao RN Social History Tobacco Use [...] Care Team (Late st Contact Info) Description 06/04/2025 3:00 PM EST Office Visit [facility] MEDICINE [address] [place] [address] [phone] Shaylee García MD 230 [place], [place] [phone] documented as of this encounter Visit Diagnoses Not on filedocumented in this encounter Care Teams Mending Carrier Relationship Specialty Start Date End Date Bria Bright FNP PCP - General Family Medicine 03/07/21 10/15/22 [place] FNP [address] [place] [address] [place] [address] PCP - General Family Medicine 10/16/22 Tato Munoz 01/09/25 03/11/25 documented as of this encounter
--- OUTSIDE RECORDS SUMMARY | 2025-03-22 22:22 | XMS_ITS | Encounter Summary ---
Author Organization [employer] Address [address] [facility] [address] 7t [place] [address] Care Team Providers Care Psychology Fellow Name Role Phone Heide Priest SHEARING SUPERVISOR Primary Care Provider [phone] Tato Munoz Unavailable Reason for Visit * Reason Comments Med Refill Encounter Details Date Type Department Care Team ([facility] Contact Info) Description 06/07/2023 Refill [facility] MED & PEDS [address] [place], [place] [phone] Shaylee García MD 230 [place] [address] Opioid type dependence, continuous (CMS/HCC) Social History [...] Description 06/04/2025 3:00 PM EST Office Visit [facility] MEDICINE 230 [place] [address] Shaylee García MD [address] [place] [address] documented as of this encounter Visit Diagnoses Diagnosis Opioid type dependence, continuous (CMS/HCC) (HCC) Opioid type dependence, continuous documented in this encounter Additional Health Concerns Assessment Noted Time PHQ-9 Depression Total Score: 8 12/20/19 23 10:14 AM EDT documented as of this encounter Care Teams Psychology Fellow Relationship Specialty Start Date End Date Heide Priest FNP 230 [place] [address] PCP - General Family Medicine 10/16/22 Tato Munoz 01/09/25 03/11/25 documented as of this encounter
--- OUTSIDE RECORDS SUMMARY | 2025-03-22 22:22 | XMS_ITS | Encounter Summary ---
Author Organization [employer] Address [address] [facility] 7t [place] [address] Care Team Providers Care Music Copyist Name Role Phone Cem [facility] Primary Care Provider [phone] Tato Munoz Unavailable Reason for Visit * Reason Onset Date Comments Nurse Triage 10/08/2024 Encounter Details Date Type Department Care Team ([facility] st Contact Info) Description 10/08/2024 Telephone [facility] [address] [place], [place] [phone] [place], [facility] [address] [place] [address] Nurse Triage Social History Tobacco Use Types [...] encounter Miscellaneous Notes * Telephone Encounter - Becky Cristian - 10/08/2024 10:35 AM EDT Symptom: Leg [...] Description 06/04/2025 3:00 PM EST Office Visit [facility] [address] [place] [address] Shaylee García MD [address] [place] [address] documented as of this encounter Visit Diagnoses Not on filedocumented in this encounter Additional Health Concerns Assessment Noted Time PHQ-9 Depression Total Score: 8 12/20/19 23 10:14 AM EDT documented as of this encounter Care Teams Music Copyist Relationship Specialty Start Date End Date Heide Priest FNP [address] [place] [address] PCP - General Family Medicine 10/16/22 Tato Munoz 01/09/25 03/11/25 documented as of this encounter
--- OUTSIDE RECORDS SUMMARY | 2025-03-22 22:22 | XMS_ITS | Clinical Summary ---
Author Organization [employer] Address [address] [facility] 7t [place] [address] Care Team Providers Care Stained Glass Artist Name Role Phone Heide Priest [employer] PLANNER Primary Care Provider [phone] Allergies Active Allergy Reactions Criticality Noted Date [...] misc use 2x/day and prn dyspnea. Call [facility] if < 95% 022 Active EPINEPHrine (Epipen) 0.3 MG/0.3ML injection syringe inject 0.3 milliliter by intramuscular route once as needed for anaphylaxis. Repeat in 10 minutes if no improvement. 018 Active levETIRAcetam (Keppra) 750 MG tablet Take by mouth. Activ e ibuprofen 600 MG tabletIndications :History of root [...] RINSE MOUTH AFTER USING. 60 each 2 Active polyethylene glycol, PEG, 3350 (Glycolax) 17 GM/SCOOP powder TAKE 17 GM MIXED IN 8 OUNCES OF WATER, COFFEE OR TEA ONCE DAILY NEEDED FOR CONSTIPATION 510 g 2 Active Ventolin HFA 108 (90 Base) MCG/ACT inhaler INHALE 2 PUFFS EVERY 6 HOURS NEEDED FOR WHEEZING OR SHORTNESS OF BREATH 18 g 1 Active predniSONE (Deltasone) 20 MG tabletIndications :Moderate persistent asthma, unspecified whether complicated 2 tabs po daily for 5 days 10 tablet Active Atrovent HFA 17 MCG/ACT inhalerIndication s:Moderate persistent asthma, unspecified whether complicated INHALE 2 PUFFS EVERY 6 HOURS NEEDED FOR WHEEZING OR SHORTNESS OF BREATH 12.9 g 1 Active Blood Pressure kitIndications:Es sential hypertension Use as directed 1 kit Active hydrOXYzine HCl (Atarax) 50 MG tablet TAKE 1 TABLET BY MOUTH FOUR TIMES DAILY NEEDED FOR SLEEP, FOR ANXIETY OR PANIC ATTACK 30 tablet 4 Active atorvastatin (Lipitor) 20 MG tabletIndications :Hyperlipidemia, unspecified hyperlipidemia type Take 1 tablet (20 mg) by mouth Once per day. 90 tablet 3 025 2025 Active olmesartan (Benicar) 5 MG tabletIndications :Essential hypertension Take 2 tablets (10 mg) by mouth Once per day. 30 tablet 3 Active Buprenorphine HCl-Naloxone HCl (Suboxone) 8-2 MG SL filmIndications:O pioid type dependence, continuous (CMS/HCC) (HCC) Place 2 Film under the tongue Once per day. 56 Film 2 025 2025 Active Buprenorphine HCl-Naloxone HCl (Suboxone) 8-2 MG SL filmIndications:O pioid type dependence, continuous (CMS/HCC) (HCC) Place 2 Film under the tongue Once per day for 28 days. 56 Film 025 2024 Discontinued(R eorder (will not trigger [...] to improve or worsening symptoms. COPD exacerbation ([facility]) 08/26/2024 Assessment & Plan (08/26/2024 10:16 AM EDT): No evidence of respiratory distress. SaO2 97% on RA Wheezing improved with albuterol tx -Treat for COPD exacerbation with prednisone and doxy -ER precautions discussed Severe obesity (BMI 35.0-39.9) with comorbidity ([facility]) 07/07/2024 Dental caries 01/29/2023 Healthcare maintenance 12/29/2022 Overview (12/29/2022): Mammo: Ordered 12/2022 Pap:s/p ADRIÁN C-scope: Referred 12/2022 BMD: Routine Immunizations: Tobacco use 12/29/2022 Overview (01/02/2023): Declines cessation at this time Assessment & Plan (08/26/2024 9:20 AM EDT): Agrees to Collaborative Drug Therapy Managment Program with our PharmD, JENNIFER referral. Placed 08/25/24 Substance abuse in remission ([facility]) Overview (12/29/2022): Stable on suboxone Palpitations 12/29/2022 Overview (01/02/2023): EKG in office WNL Will check initial labs and refer to cardiology for further eval Hyperlipidemia 12/29/2022 Depressive disorder 12/04/2022 Overview (12/29/2022): Established with therapist and psychiatrist Prazosin Amitriptyline Perphenazine Venlafaxine Duloxetine Depakote Seizure disorder ([facility]) 12/04/2022 Overview (12/29/2022): Keppra Started in 2009 [...] Calcium oxalate calculus 12/04/2022 Unstable angina pectoris ([facility]) 12/04/2022 12/29/2022 Chronic back pain 12/04/2022 12/29/2022 Kidney stone 03/30/2022 12/29/2022 Panic attack 11/06/2017 12/29/2022 Severe recurrent major depre ssion without psychotic features (CMS/HCC) 11/06/2017 12/29/2022 Encounters * This document contains information received from the source organization and may not represent a complete record from that organization. Date Type Department Care Team Description 03/12/2025 3:30 PM EDT Office Visit [facility] [address] [place] [phone] Shaylee García MD Uncomplicated opioid dependence (CMS/HCC) (HCC) (Primary Dx) 03/12/2025 Travel 03/11/2025 Patient Outreach [address] [address] Heide Priest FNP Care Coordination ([facility] f/u, program graduation ) 03/05/[address] [address] Shaylee García MD Opioid type dependence, continuous (CMS/HCC) (HCC) 02/20/2025 11:30 AM EDT Office Visit [facility] [address] [place] [phone] Heide Priest FNP Essential hypertension (Primary Dx); Mixed hyperlipidemia; Current moderate episode of major depressive disorder without prior episode (CMS/HCC) (HCC); Dietary counseling; Exercise counseling; Class 3 severe obesity due to excess calories with serious comorbidity and body mass index (BMI) of 40.0 to 44.9 in adult (HCC); Encounter for immunization; Encounter for vaccination 02/20/2025 Travel 02/19/[address] [address] Heide Priest FNP chart prep 02/16/2025 Results Follow-Up [facility] [address] [place] [phone] Heide Priest FNP Comprehensive Metabolic Panel, Lipid Panel, Standard, Hemoglobin A1c 02/12/2025 2:00 PM EDT Telemedicine [address] [address] Shaylee García MD Uncomplicated opioid dependence (CMS/HCC) (HCC) (Primary Dx) 02/12/2025 Travel 02/03/2025 Patient Outreach [address] [address] [place] [facility] Care Coordination ([facility]/MARIA DE JESUS Munoz, Sdoh f/u call_lvm ) 02/03/[address] [address] Shaylee García MD Opioid type dependence, continuous (CMS/HCC) 02/03/2025 Refill [facility] [address] [place] [phone] [place] [facility] 01/19/2025 10:45 AM EDT Office Visit [address] [address] [place] [facility] Essential hypertension (Primary Dx); Seizure disorder ([facility]); Encounter for screening mammogram for breast cancer; Encounter for screening for malignant neoplasm of colon; Class 3 severe obesity due to excess calories with serious comorbidity and body mass index (BMI) of 40.0 to 44.9 in adult 01/19/2025 Travel 01/16/[address] [address] [place] [facility] Chart Prep 01/09/2025 Patient Outreach [address] [address] [facility] Care Coordination ([facility]/MARIA DE JESUS Munoz, Chart review ) 01/09/2025 Patient Outreach [address] [address] [facility] Care Coordination ([facility]MARIA DE JESUS Munoz, Initial outreach_enrolled ) 01/09/2025 Patient Outreach [facility] [address] [place], [place] [phone] [place] [facility] Pre-visit Planning (SDOH positive. Tobacco screening negative. ) from Last 3 Months Immunizations Immunization Administration Dates Next Due Influenza injectable quadriv alent preservative free 06/29/2022,03/04/2020,12/24/2018,04/16 Influenza, IIV3, injectable 05/26/2018 Influenza, seasonal, injecta ble, preservative free 02/20/2025 Moderna Covid-19 Vaccine 12+ 12/22/2021,02/18/20 21,09/23/2020 Moderna Covid-19 Vaccine 6+ Bivalent 06/29/2022 Pfizer Covid-19 Vaccine 12+ 02/20/2025 Pneumococcal Conjugate PCV 20 02/20/2025 Pneumococcal Polysaccharide PPSV23 03/12/2011 Tdap 03/04/2020 Family [...] Answer Date Recorded Patient Health Questionnaire-9 Score 17 02/20/2025 Patient Health Questionnaire-9 Score 17 02/20/2025 Last PHQ-9: Questionnaire Data Not on file 1 Housing Stability Answer Date Recorded What is your housing situation today? I have rosaferny mascorro 01/09/[address] you [...] Date Recorded Patient Health Questionnaire-2 Score 5 02/20/2025 Internet Access Answer Date Recorded Internet Access [...] Sign Reading Time Taken Comments Blood Pressure 130/88 02/20/2025 11:43 AM EDT Pulse 90 02/20/2025 11:43 AM EDT Temperature 36.6 C (97.8 F) 02/20/2025 11:43 AM EDT Respiratory Rate 20 02/20/2025 11:43 AM EDT Oxygen Saturation 97% 10/24/2024 3:53 PM EDT Inhaled Oxygen Concentration - - Weight 101 kg (222 lb) 02/20/2025 11:43 AM EDT Height 154.9 cm (5' 1 ) 02/20/2025 11:43 AM EDT Body Mass Index 41.95 02/20/2025 11:43 AM EDT Plan of Treatment Upcoming Encounters Date Type Department Care Team (Late st Contact Info) Description 06/04/2025 3:00 PM EST Office Visit [facility] [address] [place] [address] Shaylee García MD [address] [place] [address] Health Maintenance Due Date Last Done Comments CT Colonography 1975 Colonoscopy 1977 Colorectal Cancer Screening 1975 Dental Oral Exam 1977 Dental Prophylaxis 1977 Dental X-Ray: Full Mouth 1977 FIT DNA/Cologuard 1977 FIT 1977 FOBT 1977 Sigmoidoscopy 1977 Family Planning (PISQ) 1992 Hepatitis B Vaccines (1 of 3 - 19+ 3-dose series) 1996 Mammogram 01/24/2024 01/23/2023 Dental X-Ray: Bitewings 09/20/2024 09/20/19 24, 02/20/2023, 04/18/2022 Depression Monitoring 08/21/2025 02/20/2025, 025 SDOH Screening 01/09/2026 01/09/2025 Disability Screening 02/20/2026 02/20/2025 Tobacco Screening 02/20/2026 02/20/2025 Alcohol/Substance Use Screening 03/12/2026 03/12/2025 Zoster Vaccines (1 of 2) 07/29/2027 Lipid Panel 02/16/2030 02/16/2025, 08/0 12/2022, 03/03/2020 DTaP/Tdap/Td Vaccines (2 - Td or Tdap) 03/04/2030 03/04/2020 RSV Patients and Patients Aged 60 years or older (1 - 1-dose 75+ series) 2052 HIV Screening Completed 03/03/2020 Hepatitis C Screening Completed 03/03/2020 Cervical Cancer Screening Discontinued Pap Smear Discontinued 06/04/2021 COVID-19 Vaccine Completed 02/20/2025, , 12/22/2021, Additional history exists Influenza Vaccine Completed 02/20/2025, , 03/04/2020, Additional history exists Pneumococcal Vaccine: Pediatrics (0 to 5 Years) and At-Risk Patients (6 to 49) Years Completed 02/20/2025, 03/12/2011 HIB Vaccines Aged Out No longer eligi [...] Comments POCT TANIA-14 URINE DRUG SCREEN Routine 03/12/2025 1:07 PM EDT Uncomplicated opioid dependence (CMS/HCC) (HCC) HEMOGLOBIN A1C Routine 02/16/2025 10:55 AM EDT Class 3 severe obesity due to excess calories with serious comorbidity and body mass index (BMI) of 40.0 to 44.9 in adult (HCC) LIPID PANEL, STANDARD Routine 02/16/2025 10:55 AM EDT Essential hypertension COMPREHENSIVE METABOLIC PANEL Routine 02/16/2025 10:55 AM EDT Essential hypertension BITEWING - SINGLE RADIOGRAPHIC IMAGE Routine 09/20/2023 11:30 AM EDT BI MAMMOGRAM SCREENING TOMOSYNTHESIS BILATERAL Routine 01/23/2023 4:23 PM EDT HM PAP/HPV Routine 06/04/2021 ZZZ HISTORICAL HEPATITIS C AB W/REFL TO HCV RNA, QN, PCR Routine 03/03/2020 2:05 PM EDT HIV 1/2 ANTIGEN/ANTIBODY, FOURTH GENERATION W/RFL Routine 03/03/2020 2:05 PM EDT from Last 3 Months or Most Recently Relevant to Health Maintenance Results * (ABNORMAL) POCT TANIA-14 Urine Drug Screen (03/12/2025 1:07 PM EDT) THC Positive(A) Negative Cocaine Screen, [...] obtained by clean catch procedure / Unknown 03/12/2025 1:07 PM EDT Shaylee García MD POINT OF CARE TEST ENTER/LARISSA T ORDERABLES Final Result * Hemoglobin A1c (02/16/2025 10:55 AM EDT) Hemoglobin A1c 5.5 <6.0 % [facility] Comment:Hemoglobin A1C Refer ence Range Adults: 4.8 - 6.0 % Non diabetic: < 6.0 % Goal: < 7.0 %Additional Action Suggested: > 8.0 %Note: Hemoglobin A1c results are invalid for patients with abnormal amounts of HbF. Blood transfusions may impact the HbA1c concentration in the patient sample. Estimated Average Glucose 111 mg/dL [facility] Comment:eAG = Estimated ave rage glucose which is %A1C expressed asaverage glucose, using the formula of the A1O-FfgpjtfXwwetzi Glucose study (ADAG), Diabetes Care, Vol.31,#8,2007 Blood Venous blood specimen / Unknown 02/16/2025 10:55 AM EDT 02/16/2025 1:24 PM EDT [facility] [employer] LAB BLOOD ORDERABLES Final Re sult [facility] [address] [place] [phone] * (ABNORMAL) Lipid Panel, Standard (02/16/2025 10:55 AM EDT) Triglycerides 78 <150 mg/dL [facility] Comment:Desirable Triglyceri de: less than 150 mg/dLBorderline High Triglyceride 150-199 mg/dLHigh Triglyceride: 200-499 mg/dLVery High Triglyceride: greater than or equal to 5OO mg/dL Cholesterol 245(H) <200 mg/dL [facility] Comment:Desirable Cholestero l: less than 200 mg/dLBorderline High Cholesterol: 200-239 mg/dLHigh Cholesterol: greater than 239 mg/dL LDL Cholesterol Calculated 186(H) <100 mg/dL [facility] Comment:Desirable LDL: less than 100 mg/dLNear Optimal/Above Optimal LDL: 110- 129 mg/dLBorderline High LDL: 130-159 mg/dLHigh LDL: 160-189 mg/dLVery High LDL: greater than or equal to 190 mg/dL HDL Cholesterol 44 >40 mg/dL [facility] Comment:Desirable HDL: great er than 40 mg/dL Note: This HDL assay may give artificially low results in patients with liver disease. Blood Venous blood specimen / Unknown 02/16/2025 10:55 AM EDT 02/16/2025 1:24 PM EDT [facility] LAB BLOOD ORDERABLES Final Re sult [facility] [address] [place] [phone] [phone] * (ABNORMAL) Comprehensive Metabolic Panel (02/16/2025 10:55 AM EDT) Sodium 142 135 - 145 mmol/L [facility] Potassium 3.8 3.3 - 5.1 mmol/L [facility] Chloride 107 96 - 108 mmol/L [facility] Carbon Dioxide 27 22 - 29 mmol/L [facility] Anion Gap 12 12 - 20 [facility] Urea Nitrogen (BUN) 17(H) 9 - 16 mg/dL [facility] Creatinine, Serum 0.67 0.5 - 1.4 mg/dL [facility] Estimated Glomerular Filt Rate >60 [facility] Comment:Chronic Kidney Disea se: Estimated GFR < 60 mL/min/1.21e8Gwuehy Kidney Disease: Estimated GFR < 15 mL/min/1.73m2 Glucose 78 60 - 115 mg/dL [facility] Calcium 9.2 8.4 - 10.2 mg/dL [facility] Bilirubin, Total 1.1(H) 0.0 - 1.0 mg/dL [facility] Aspartate Amino Transferase 20 5 - 31 U/L [facility] Alanine Aminotransferase 14 0 - 31 U/L [facility] Total Protein 7.1 6.5 - 8.0 g/dL [facility] Albumin Level 4.0 3.5 - 5.0 g/dL [facility] Alkaline Phosphatase 61 39 - 117 U/L [facility] Blood Venous blood specimen / Unknown 02/16/2025 10:55 AM EDT 02/16/2025 1:24 PM EDT [facility] [place] [employer]NER LAB BLOOD ORDERABLES Final Re sult [facility] [address] [place] [phone] * BI Mammogram Screening Tomosynthesis Bilateral (01/23/2023 4:23 PM EDT) Anatomical Region Laterality Modality Breast Bilateral Mammography 01/23/2023 4:23 PM EDT Narrative 02/08/2023 2:45 PM EDT [address] [place] [address] Mammography Report Signed Patient: Bri Berrios MR#: [id number] 100 : 1975 Acct:[id number] Age/Sex: 47 / F ADM Date: 01/23/23 Loc: MAMMO Attending Dr: Heide Priest RAW MATERIAL PLANNER Ordering Physician: Heide Priest Results: 1Nega tive Date of Service: 01/23/23 Follow Up: 1 Year From Orig inal Mammogram Procedure(s): MM tomosynthesis screening BI Accession Number(s): [id number] cc: Heide Priest [facility] EXAMINATION: MM SCREENING DIGITAL BREAST TOMOSYNTHESIS, BILATERAL [...] by Aundrea Chavez MD in OV> 02/08/23 144 DD/ 22 TD/TT: Clinical Trials Assistant: Procedure Note Samiter, Image - 02/08/2023 [facility] [address] [place] [address] Mammography Report Signed Patient: Yahaira Berrios#: [id number] 100 : 1975Acct:[id number] Age/Sex: 47 / FADM Date: 01/23/23 Loc: JOSE ANTONIO Attending Dr: Heide ELLINGTON Ordering Physician: Heide PriestPResults: 1Nega tive Date of Service: 01/23/23Follow Up: 1 Year From Orig inal Mammogram Procedure(s): MM tomosynthesis screening BI Accession Number(s): [id number] cc: Heide Priest EXAMINATION: MM SCREENING DIGITAL BREAST TOMOSYNTHESIS, BILATERAL [...] by Aundrea Chavez MD in OV> 02/08/23 144 DD/ 22 TD/TT: Clinical Trials Assistant: Heide [place] [employer]NER IMG BI PROCEDURES Final Resul t * Hm Pap Smear (06/04/2021) Pap smear Performed, hysterectomy Historical Provider HEALTH MAINTENANCE Final Result * HEPATITIS C AB W/REFL TO HCV RNA, QN, PCR (03/03/2020 2:05 PM EDT) HEPATITIS C ANTIBODY NON-REACT FIDEL NON-REACT FIDEL [facility] INDEX 0.02 <1.00 [facility] Comment: HCV antibody was non-reactive. There is no laboratory evidence of HCV infection. In most cases, no further action is required. However, if recent HCV exposure is suspected, a test for HCV RNA (test code 58430) is suggested. For additional information please refer to http://GroupCard/faq/CEL05t7 (This link is being provided for informational/ educational purposes only.) HEPATITIS C ANTIBODY NON-REACT FIDEL NON-REACT FIDEL [facility] INDEX 0.02 <1.00 [facility] Comment: HCV antibody was non-reactive. There is no laboratory evidence of HCV infection. In most cases, no further action is required. However, if recent HCV exposure is suspected, a test for HCV RNA (test code 55693) is suggested. For additional information please refer to http://Vocollect.Navigating Cancer/faq/ACD82f1 (This link is being provided for informational/ educational purposes only.) HEPATITIS C ANTIBODY NON-REACT FIDEL NON-REACT FIDEL [facility] INDEX 0.02 <1.00 [facility] Comment: HCV antibody was non-reactive. There is no laboratory evidence of HCV infection. In most cases, no further action is required. However, if recent HCV exposure is suspected, a test for HCV RNA (test code 65039) is suggested. For additional information please refer to http://Vocollect.Navigating Cancer/faq/JID05b1 (This link is being provided for informational/ educational purposes only.) 03/03/2020 2:05 PM EDT us Historical Provider HISTORICAL/NON ORDERABLE LABS Final Result [facility] [address] * HIV 1/2 ANTIGEN/ANTIBODY,FOURTH GENERATION W/RFL (03/03/2020 2:05 PM EDT) HIV-1/2 ANTIGEN AND ANTIBODIES, 4TH GENERATION W/ REFLEX NON-REACT FIDEL NON-REACT FIDEL [facility] Comment: HIV-1 antigen and HIV-1/HIV-2 [...] purpose. For additional information please refer to http://Vocollect.Navigating Cancer/faq/ABZ291 (This link is being provided for informational/ educational purposes only.) The performance of this assay has not been clinically validated in patients less than 2 years old. HIV-1/2 ANTIGEN AND ANTIBODIES, 4TH GENERATION W/ REFLEX NON-REACT FIDEL NON-REACT FIDEL [facility] Comment: HIV-1 antigen and HIV-1/HIV-2 [...] purpose. For additional information please refer to http://Vocollect.[employer]on.[employer]/faq/TWX539 (This link is being provided for informational/ educational purposes only.) The performance of this assay has not been clinically validated in patients less than 2 years old. HIV-1/2 ANTIGEN AND ANTIBODIES, 4TH GENERATION W/ REFLEX NON-REACT FIDEL NON-REACT FIDEL [facility] Comment: HIV-1 antigen and HIV-1/HIV-2 [...] purpose. For additional information please refer to http://education.Navigating Cancer/faq/VXL407 (This link is being provided for informational/ educational purposes only.) The performance of this assay has not been clinically validated in patients less than 2 years old. 03/03/2020 2:05 PM EDT us Historical Provider LAB BLOOD ORDERABLES Viktoriya jang Result Performing Organization Address City/State/[facility] Phone Number [facility] Formerly [facility] [address] from Last 3 Months or Most Recently Relevant to Health Maintenance [facility] * Guarantor: Bri Berrios Account Type Relation to Patient Date of Phone Billing Address Personal/Family Self [address] Care Teams Stained Glass Artist Relationship Specialty Start Date End Date Heide Priest FNP [address] [place] [address] PCP - General Family Medicine 10/16/22
--- OUTSIDE RECORDS SUMMARY | 2025-03-22 22:22 | XMS_ITS | Encounter Summary ---
Author Organization [employer] Address [address] [facility] 7t [place] [address] Care Team Providers Care Stock Sorter Name Role Phone Bria Bright [facility] Primary Care Provider [phone] Tato Munoz Unavailable Reason for Visit * Reason Comments Med Refill Encounter Details Date Type Department Care Team ([facility] Contact Info) Description 09/18/[address] [facility] [address] [place], [place] [phone] Bria Bright FNP Social History Tobacco Use [...] Upcoming Encounters Date Type Department Care Team ([facility] Contact Info) Description 06/04/2025 3:00 PM EST Office Visit [facility] [address] [place], [place] [phone] Shaylee García MD [address] [place], [place] [phone] documented as of this encounter Visit Diagnoses Not on filedocumented in this encounter Care Teams Stock Sorter Relationship Specialty Start Date End Date Bria Bright FNP PCP - General Family Medicine 03/07/21 10/15/22 [place] FNP [address] [place] [phone] PCP - General Family Medicine 10/16/22 Tato Munoz 01/09/25 03/11/25 documented as of this encounter
--- OUTSIDE RECORDS SUMMARY | 2025-03-22 22:22 | XMS_ITS | Encounter Summary ---
Author Organization [employer] Address [address] [facility] 7t [place] [address] Care Team Providers Care Deicer Inspector Pneumatic Name Role Phone Bria Bright [facility] Primary Care Provider Aysha camilogreer [facility] Primary Care Provider [phone] Tato Munoz Unavailable Encounter Details Date Type Department Care Team (Late st Contact Info) Description 04/18/2022 Orders Only [facility] ADULT DENTAL [address] [place] [address] LucianoVandana Bonilla, DDS [address] [place] [address] Periapical abscess without sinus (Primary Dx) Social [...] Description 06/04/2025 3:00 PM EST Office Visit [facility] MEDICINE [address] [place] [address] Shaylee García MD [address] [place] [address] documented as of this encounter Visit Diagnoses Diagnosis Periapical abscess without sinus- Primary documented in this encounter Care Teams Deicer Inspector Pneumatic Relationship Specialty Start Date End Date Bria Bright FNP PCP - General Family Medicine 03/07/21 10/15/22 [facility] RAKEL Jaeger [address] [place] [address] PCP - General Family Medicine 10/16/22 Tato Munoz 01/09/25 03/11/25 documented as of this encounter
--- OUTSIDE RECORDS SUMMARY | 2025-03-22 22:22 | XMS_ITS | Encounter Summary ---
Author Organization [employer] Address [address] [address] [facility] [address] 7t [place] [address] Care Team Providers Care Bariatric Physician Name Role Phone Heide Priest MEDIA CLERK Primary Care Provider [phone] Tato Munoz Unavailable Reason for Visit * Reason Comments Med Refill Encounter Details Date Type Department Care Team ([facility] Contact Info) Description 05/31/2023 Refill [facility] CHC MED & PEDS [address] [place], [place] [phone] Shaylee García MD [address] [place] [address] Opioid type dependence, continuous (CMS/HCC) Social History [...] Description 06/04/2025 3:00 PM EST Office Visit [facility] MEDICINE [address] [place] [address] Shaylee García MD [address] [place] [address] documented as of this encounter Visit Diagnoses Diagnosis Opioid type dependence, continuous (CMS/HCC) (HCC) Opioid type dependence, continuous documented in this encounter Additional Health Concerns Assessment Noted Time PHQ-9 Depression Total Score: 8 12/20/19 23 10:14 AM EDT documented as of this encounter Care Teams Bariatric Physician Relationship Specialty Start Date End Date Heide Priest FNP [address] [place] [address] PCP - General Family Medicine 10/16/22 Tato Munoz 01/09/25 03/11/25 documented as of this encounter
--- OUTSIDE RECORDS SUMMARY | 2025-03-22 22:22 | XMS_ITS | Encounter Summary ---
Author Organization [employer] Address [address] [facility] 7t [place] [address] Care Team Providers Care Media Buyer Name Role Phone Heide Priest VACATION PLANNER Primary Care Provider [phone] Tato Munoz Unavailable Reason for Visit * Reason Comments Med Refill Encounter Details Date Type Department Care Team ([facility] st Contact Info) Description 08/23/2023 Refill [facility] MEDICINE [address] [place], [place] [phone] Dat Royal MD [address] [place], [place] [phone] Opioid type dependence, continuous (CMS/HCC) Social History [...] Description 06/04/2025 3:00 PM EST Office Visit [facility] MEDICINE [address] [place] [phone] Shaylee García MD [address] [place] [address] documented as of this encounter Visit Diagnoses Diagnosis Opioid type dependence, continuous (CMS/HCC) (HCC) Opioid type dependence, continuous documented in this encounter Additional Health Concerns Assessment Noted Time PHQ-9 Depression Total Score: 8 12/20/19 10:14 AM EDT documented as of this encounter Care Teams Media Buyer Relationship Specialty Start Date End Date Heide Priest FNP [address] [place] [address] PCP - General Family Medicine 10/16/22 Tato Munoz 01/09/25 03/11/25 documented as of this encounter
--- OUTSIDE RECORDS SUMMARY | 2025-03-22 22:22 | XMS_ITS | Clinical Summary ---
Author Organization [facility] [place] [address] Care Team Providers Care Ortho Assistant Name Role Phone Unavailable Primary Care Provider [...]
[2025-03-22] MEDS: diazePAM 10 MG/2 ML CARTRIDGE 5 MG IVPUSH (23:01)
[2025-03-22 23:35] VITALS: RESP 18
--- NOTE | 2025-03-23 00:12 | ED_ITS ---
HPI - Fall General Chief Complaint: Fall Stated Complaint: Fell in the shower Time Seen by Provider: 03/22/25 22:52 Source: patient, EMS, RN notes reviewed and old records reviewed Mode of arrival: EMS Limitations: no limitations History of Present Illness ED Provider: Dr. Margie Rangel HPI Narrative: 49-year-old female with no significant past medical history presenting with right-sided chest wall pain and flank pain after a fall that occurred in the bath tub immediately prior to arrival. Patient states that she was getting out of her bath tub which has a high edge to it when she slipped on the bath mat, falling onto her right side. Did not hit her head or lose consciousness. Admits that this has been an issue before at her apartment and she has fallen a couple other times. No injury aside from her lateral chest wall and flank. Describes severe pain, inability to walk due to the pain. Had to be carried out of the bathroom by EMS. No numbness/tingling/weakness of the extremities. No neck pain. Admits to some shortness of breath due to pain but otherwise has been feeling well prior to the injury. Related Data Home Medications ?Medication ?Instructions ?Recorded ?Confirmed albuterol sulfate 90 mcg/actuation 2 puff inhalation Q 4-6H PRN 05/24/23 05/24/23 aerosol inhaler (Ventolin HFA) buprenorphine 8 mg-naloxone 2 mg 20 mg sublingual QAM 05/24/23 05/24/23 sublingual film (Suboxone) hydroxyzine HCl 50 mg tablet 50 mg PO QID PRN 05/24/23 05/24/23 lisinopril 5 mg tablet 5 mg PO DAILY 05/24/2305/24 atorvastatin 20 mg tablet 20 mg PO DAILY 03/05/25 ipratropium bromide 17 2 puff inhalation Q8H mcg/actuation HFA aerosol inhaler (Atrovent HFA) Previous Rx's ?Medication ?Instructions ?Recorded aluminum hydrox-magnesium carb 254 10 ml PO QID PRN dy spepsia #355 mL 07/09/23 mg-237.5 mg/5 mL oral suspension (Gaviscon Extra Strength) lorazepam 1 mg tablet (Ativan) 1 mg PO BEDTIME PRN anx iety/sleep 09/30/23 #14 tabs hydrocodone 5 mg-acetaminophen 325 1 tab PO Q6H PRN se dennys pain 03/23/25 mg tablet (scale score 7-10) #10 tabs ibuprofen 600 mg tablet 600 mg PO Q8H PRN fever or p ain 03/23/25 #30 tabs lidocaine 4 % topical patch 1 patch topical DAILY PRN pain #15 03/23/25 ea Allergies Allergy/AdvReac Type Severity Reaction Status Date / Time azithromycin (AZITHROMYCIN) Allergy Severe ANGIOEDEMA Verified 03/22/25 22:05 pork derived (porcine) (PORK Allergy Unknown HIVES Verified 03/22/25 22:05 DERIVED (PORCINE)) topiramate (From TOPAMAX) Allergy Unknown HIVES Verified 03/22/25 22:05 tramadol (TRAMADOL) Allergy Unknown CONVULSIONS Verified 03/22/25 22:05 Review of Systems Review of Systems: As per HPI, full review of systems performed and negative but for the above mentioned pertinent positives and negatives. [facility] Past Medical History Medical History Palpitation Essential hypertension Surgical History History of back surgery Hx of wisdom tooth extraction Hx of colonoscopy Hx of cholecystectomy Hx of hysterectomy Family History Family History Mother Myocardial infarction Father Myocardial infarction Social History Social History Alcohol intake: former Patient Tobacco Use Status: Former Tobacco user Substance Use Type: Marijuana Physical Exam Exam: Exam: GENERAL: Uncomfortable-Appearing, conversant, mild distress due to pain. SKIN: Normal skin color for ethnicity, warm, dry, superficial abrasion overlying the right lateral chest wall and flank, no ecchymosis, no crepitus. HEENT: Normocephalic, atraumatic, no stridor, airway patent, no raccoon's eyes, no Griffin sign, dentition intact, EOMI. NECK: Soft, supple, full ROM, midline structures nontender, no step-offs, no deformities, no lymphadenopathy. CHEST: Heart regular rate and rhythm, no murmurs, symmetric chest rise and fall, tenderness to palpation overlying the right lateral ribs 7 through 12, no crepitus. PULMONARY: Clear to auscultation bilaterally, no labored breathing, no wheezes/rhales/rhonchi. ABDOMINAL: Soft, nondistended, nontender, positive bowel sounds in all quadrants. : Deferred. MUSCULOSKELETAL: Normal tone, full range of motion, no deformities, right lateral chest wall contusion with associated abrasion and tenderness to palpation. NEURO: Alert and oriented x3, CN II through XII intact, equal strength and sensation bilateral upper and lower extremities, no focal neurologic deficits. PSYCHIATRIC: Anxious affect, fluid speech, good eye contact and appropriate demeanor. Vital Signs: Vital Signs: Last Vital Signs Temp 97.6 F 03/23/25 01:45 Pulse 50 03/23/25 01:45 Resp 18 03/23/25 01:45 BP 139/78 03/23/25 01:45 Pulse Ox 98 03/23/25 01:45 O2 Del Method Room Air 03/23/25 01:45 BMI result Body Mass Index 40.4 Medications Administered Discontinued Medications Generic Name Dose Route Start Last Admin Trade Name Luis Mq PRN Reason Stop Dose Admin Diazepam 5 mg 03/22/25 22:52 03/22/25 23:01 Diazepam 10 Mg/2 Ml Cartridge IVPUSH 03/22/25 22:53 5 mg STAT STA Administration Ketorolac Tromethamine 15 mg 03/22/25 22:52 03/22/25 23:01 Ketorolac Tromethamine 15 Mg/Ml Vial IVPUSH 03/22/25 22:53 15 mg ONCE ONE Administration Oxycodone HCl 5 mg 03/23/25 00:11 03/23/25 00:28 Oxycodone Hcl Immed Release 5 Mg Tablet PO 03/23/25 00:12 5 mg ONCE ONE Administration Medical Decision Making Medical Decision Making MDM Narrative: Patient presents today with chief complaint of trauma. Different diagnosis on this patient includes intracranial hemorrhage, skull fracture, neck injury including fracture or spinal cord pathology. Other diagnoses considered would include chest or abdominal trauma as well as long bone fractures. Based on my physical exam, the ordered imaging modalities are indicated. The patient specifically does not show any signs of central cord syndrome as evidenced by equal strength in the upper extremities with normal two-point discrimination. Sensation is not altered. GCS is appropriate. Patient is neurovascularly intact. There are no signs of vascular emergency. No signs of shock. No respiratory distress. Patient was given oxycodone, Lidoderm patch for pain control. X-ray does not show evidence of fracture. Patient is feeling improved after medications. Using incentive spirometry as directed. Plan for discharge home and outpatient follow up. Discharged in stable condition. Differential Diagnosis Differential Diagnoses: The differential diagnosis associated with the presentation includes (As above) Admission/Observation Consideration of admission/observation: Escalation of care including admission/observation considered Independent Interpretation I performed an independent interpretation of an: Plain X-Ray Radiology Impression Discussion of test interpretation with radiology: I have reviewed the radiologist's reading. Independent Historian Clinical information obtained from an independent historian. History obtained from or confirmed by: EMS External Record Review External record reviewed: Inpatient record Prescription Management I considered prescription management with: Pain Medication Social Determinants Patient?s care significantly limited by Social Determinants of Health including: Other Social Determinant of Health Discharge Plan Discharge Clinical Impression: Fall in (into) shower or empty bathtub, initial encounter, Contusion of rib on right side, Abrasion of chest wall Patient Disposition: Home, Self-Care Instructions: Rib Contusion (ED) Additional Instructions: Your x-ray does not show evidence of broken ribs however, you have probably bruised your ribs very deeply. This is as painful as a broken rib. Continue to take pain medications as needed for pain. Try to rest as much as possible. Use incentive spirometry several times an hour while awake to help keep your lungs fully inflated as to avoid developing pneumonia. Return to the emergency department with any new or worsening symptoms including: Bloody or green colored sputum, fevers greater than 100 degrees, inability to tolerate food or drink, worsening shortness of breath or chest pain, any new symptom that concerns you. Call 911 with any medical emergency. Prescriptions: New hydrocodone-acetaminophen 5-325 mg tablet 1 tab PO Q6H PRN (Reason: severe pain (scale score 7-10)) Qty: 10 0RF Rx Instructions: Partial Fill upon patient request. lidocaine 4 % adhesive patch,medicated 1 patch topical DAILY PRN (Reason: pain) Qty: 15 0RF ibuprofen 600 mg tablet 600 mg PO Q8H PRN (Reason: fever or pain) Qty: 30 0RF No Action Gaviscon Extra Strength 254-237.5 mg/5 mL suspension 10 ml PO QID PRN (Reason: dyspepsia) Qty: 355 0RF lorazepam [Ativan] 1 mg tablet 1 mg PO BEDTIME PRN (Reason: anxiety/sleep) Qty: 14 0RF buprenorphine-naloxone [Suboxone] 8-2 mg film 20 mg sublingual QAM albuterol sulfate [Ventolin HFA] 90 mcg/actuation HFA aerosol inhaler 2 puff inhalation Q4-6H PRN lisinopril 5 mg tablet 5 mg PO DAILY hydroxyzine HCl 50 mg tablet 50 mg PO QID PRN Atrovent HFA 17 mcg/actuation HFA aerosol inhaler 2 puff inhalation Q8H atorvastatin 20 mg tablet 20 mg PO DAILY Interventions: ED Discharge Assessment Last Done: 03/23/25 01:45 Discharge Date/Time: 03/23/25 01:46 Print Language: Faroese
[2025-03-23] MEDS: oxyCODONE HCl Immed Release 5 MG TABLET PO (00:28)
[2025-03-23 01:32] VITALS: RESP 18
[2025-03-23 01:33] VITALS: BP 139/78; PULSE 50; RESP 18; TEMP 36.4; O2SAT 98
[2025-03-23 01:45] VITALS: BP 139/78; PULSE 50; RESP 18; TEMP 36.4; O2SAT 98
== END 2025-03-23 01:46 | disposition home or self-care (01) ==
PROVIDERS: Emergency Provider Emergency Medicine; PCP Registered Nurse
DX: S20.311A Abrasion of right front wall of thorax, initial encounter (principal); R07.89 Other chest pain; W18.2XXA Fall in (into) shower or empty bathtub, initial encounter; Y93.E1 Activity, personal bathing and showering; Y92.002 Bathroom of unspecified non-institutional (private) residence as the place of occurrence of the external cause; Y99.8 Other external cause status; Z79.899 Other long term (current) drug therapy
CPT/HCPCS: 71101; 96374; 96375; 99284; J1885; J3360

== ENCOUNTER → 2025-03-22 22:45 | Outpatient (BNV) | payer MEDICAID, SELFPAY | PROVIDERS: Emergency Provider Emergency Medicine; PCP Registered Nurse; Visit Provider Radiology Diagnostic Radiology | DX: Z04.3 Encounter for examination and observation following other accident (principal) | CPT/HCPCS: 71101 ==

== ENCOUNTER 2025-04-13 08:08 | Outpatient (AMB) | payer MEDICAID, SELFPAY ==
--- OUTSIDE RECORDS SUMMARY | 2025-04-13 08:17 | XMS_ITS | Clinical Summary ---
Author Organization [facility] [place] [address] Care Team Providers Care Mat Machine Operator Name Role Phone Unavailable Primary Care Provider [...] Depression Screening 05/14/2024 COVID-19 Vaccine (1 - 2024-2 6 season) 2025 Influenza Vaccine (#1) 2025 RSV [...]
--- OUTSIDE RECORDS SUMMARY | 2025-04-13 08:17 | XMS_ITS | Encounter Summary ---
Author Organization [employer] Address [address] [facility] 7t [place] [address] Care Team Providers Care Finish Repair Worker Name Role Phone Bria Bright [facility] Primary Care Provider Aysha Heide Osborne [facility] Primary Care Provider [phone] Tato Munoz Unavailable Encounter Details Date Type Department Care Team (Late st Contact Info) Description 05/11/2022 Orders Only [facility] MEDICINE [address] [place] [address] Eveline Gao, RN Social History Tobacco Use Types Packs/Day [...] Care Team (Late st Contact Info) Description 04/23/2025 3:00 PM EST Immunization [facility] CHC MED & PEDS [address] [place] [address] 05/18/2025 10:30 AM EST Office Visit [facility] MEDICINE [address] [place] [address] Heide Priest [address] [address] 06/04/2025 3:00 PM EST Office Visit [facility] MEDICINE [address] [place] [address] Shaylee García MD [address] [place] [address] documented as of this encounter Visit Diagnoses Not on filedocumented in this encounter Care Teams Finish Repair Worker Relationship Specialty Start Date End Date Bria Bright FNP PCP - General Family Medicine 03/07/21 10/15/22 GaryHeide FNP [address] [place] [address] PCP - General Family Medicine 10/16/22 Tato Munoz 01/09/25 03/11/25 documented as of this encounter
--- OUTSIDE RECORDS SUMMARY | 2025-04-13 08:17 | XMS_ITS | Encounter Summary ---
Author Organization [employer] Address [address] [facility] 7t [place] [address] Care Team Providers Care Inker And Opaquer Name Role Phone Bira Bright [facility] Primary Care Provider Aysha Heide Osborne [facility] Primary Care Provider [phone] Tato Munoz Unavailable Reason for Visit * Reason Comments Med Refill Encounter Details Date Type Department Care Team ([facility] Contact Info) Description 09/18/2022 Refill [facility] MEDICINE [address] [place] [address] Bria Bright FNP Social History Tobacco Use [...] Upcoming Encounters Date Type Department Care Team ([facility] Contact Info) Description 04/23/2025 3:00 PM EST Immunization [facility] CHC MED & PEDS [address] [place] [address] 05/18/2025 10:30 AM EST Office Visit [facility] MEDICINE [address] [place], [place] [phone] Heide Priest [facility] [address] [place] [address] 06/04/2025 3:00 PM EST Office Visit [facility] MEDICINE [address] [place] [address] Shaylee García MD [address] [place] [address] documented as of this encounter Visit Diagnoses Not on filedocumented in this encounter Care Teams Inker And Opaquer Relationship Specialty Start Date End Date Bria Bright FNP PCP - General Family Medicine 03/07/21 10/15/22 GansHeide FNP [address] [place] [address] PCP - General Family Medicine 10/16/22 Tato Munoz 01/09/25 03/11/25 documented as of this encounter
--- OUTSIDE RECORDS SUMMARY | 2025-04-13 08:17 | XMS_ITS | Encounter Summary ---
Author Organization [employer] Address [address] [facility] [address] 7[address] [place] [address] Care Team Providers Care Head Golf Professional Name Role Phone Heide Priest DIRECTOR MEDICARE SALES Primary Care Provider [phone] Tato Munoz Unavailable Reason for Visit * Reason Comments Med Refill Encounter Details Date Type Department Care Team ([facility] Contact Info) Description 05/31/2023 Refill [facility] CHC MED & PEDS [address] [place], [place] [phone] Shaylee García MD [address] [place] [address] Opioid type dependence, continuous (CMS/HCC) Social History [...] Info) Description 04/23/2025 3:00 PM EST Immunization [facility] CHC MED & PEDS [address] [place] [address] 05/18/2025 10:30 AM EST Office Visit [facility] MEDICINE [address] [place] [address] Heide Priest FNP [address] [place] [address] 06/04/2025 3:00 PM EST Office Visit [facility] MEDICINE [address] [place] [address] Shaylee García MD [address] [place] [address] documented as of this encounter Visit Diagnoses Diagnosis Opioid type dependence, continuous (CMS/HCC) ([facility]) Opioid type dependence, continuous documented in this encounter Additional Health Concerns Assessment Noted Time PHQ-9 Depression Total Score: 8 12/20/19 23 10:14 AM EDT documented as of this encounter Care Teams Head Golf Professional Relationship Specialty Start Date End Date Heide Priest FNP [address] [place] [address] PCP - General Family Medicine 10/16/22 Tato Munoz 01/09/25 03/11/25 documented as of this encounter
--- OUTSIDE RECORDS SUMMARY | 2025-04-13 08:18 | XMS_ITS | Encounter Summary ---
Author Organization [employer] Address [address] [facility] 7t [place] [address] Care Team Providers Care Shafting Cleaner Name Role Phone Bria Bright [facility] Primary Care Provider Aysha Heide Osborne [facility] Primary Care Provider [phone] Tato Munoz Unavailable Encounter Details Date Type Department Care Team (Late Contact Info) Description 05/01/2022 Abstract [facility] ADULT DENTAL [address] [place] [address] Milton Calzada, MARIELY [address] [place] [address] Social History Tobacco Use Types Packs/Day Years [...] Department Care Team (Late Contact Info) Description 04/23/2025 3:00 PM EST Immunization [facility] CHC MED & PEDS [address] [place], [place] [phone] 05/18/2025 10:30 AM EST Office Visit [facility] MEDICINE [address] [place], [place] [phone] CemHeide guerra FNP [address] [place] [address] 06/04/2025 3:00 PM EST Office Visit [facility] MEDICINE [address] [place] [address] Shaylee García MD [address] [place], [place] [phone] documented as of this encounter Visit Diagnoses Not on filedocumented in this encounter Care Teams Shafting Cleaner Relationship Specialty Start Date End Date Bria Bright FNP PCP - General Family Medicine 03/07/21 10/15/22 LancasterHeide guerra FNP [address] [place] [address] PCP - General Family Medicine 10/16/22 Tato Munoz 01/09/25 03/11/25 documented as of this encounter
--- OUTSIDE RECORDS SUMMARY | 2025-04-13 08:18 | XMS_ITS | Clinical Summary ---
Author Organization [employer] Address [address] [facility] 7[address] [place] [address] Care Team Providers Care Atmospheric Technician Name Role Phone Heide Priest WINDOW CASER Primary Care Provider [phone] Allergies Active Allergy Reactions Criticality Noted Date [...] misc use 2x/day and prn dyspnea. Call [facility] if < 95% 022 Active EPINEPHrine (Epipen) 0.3 MG/0.3ML injection syringe inject 0.3 milliliter by intramuscular route once as needed for anaphylaxis. Repeat in 10 minutes if no improvement. 018 Active levETIRAcetam (Keppra) 750 MG tablet Take by mouth. Activ e [facility] 254-237.5 MG/5ML [...] DAILY NEEDED FOR CONSTIPATION 510 g 2 03/28/2 025 Active Ventolin HFA 108 (90 Base) MCG/ACT inhaler INHALE 2 PUFFS EVERY 6 HOURS NEEDED FOR WHEEZING OR SHORTNESS OF BREATH 18 g 1 Active Atrovent HFA 17 MCG/ACT inhalerIndication s:Moderate [...] day. 56 Film 2 025 2025 Active ibuprofen 600 MG tabletIndications :History of root canal procedure Take 1 tablet (600 mg) by mouth every 6 (six) hours if needed for mild pain for up to 40 doses. 20 tablet 1 03/27/20 25 12:35 PM EST Active Acetaminophen Extra Strength 500 MG tablet Take 2 tablets (1,000 mg) by mouth every 8 (eight) hours if needed (as needed for pain) for up to 20 days. 60 tablet 1 03/27/20 25 12:35 PM EST 025 2024 Active lidocaine (Lidoderm) 5 % patch Apply 1 patch topically Once per day. Remove & discard patch within 12 hours or as directed by . 20 patch 03/27/20 25 12:35 PM EST Active ibuprofen 600 MG tabletIndications :History of root canal procedure Take 1 tablet (600 mg) by mouth every 6 (six) hours if needed for mild pain for up to 20 doses. 20 tablet 023 2024 Discontinued(R eorder (will not trigger notification to Pharmacy)) Acetaminophen Extra Strength 500 MG tablet TAKE 1 TABLET BY MOUTH EVERY 6 HOURS NEEDED FOR MILD PAIN FOR 7 DAYS 024 2024 Discontinued(R eorder (will not trigger notification to Pharmacy)) predniSONE (Deltasone) 20 MG tabletIndications :Moderate persistent asthma, unspecified whether complicated 2 tabs po daily for 5 days 10 tablet 025 2024 Discontinued HYDROcodone-aceta minophen (Hale) 5-325 MG tabletIndications :Rib pain Take 1 tablet by mouth every 6 (six) hours if needed for severe pain for up to 5 days. 20 tablet 03/27/20 25 12:35 PM EST 025 2024 Active Problems Problem Noted Date Diagnosed Date Rib pain 03/27/2025 Assessment & Plan (03/27/2025 12:06 PM EST): Orders: HYDROcodone-acetaminophen (Hale) 5-325 MG tablet; Take 1 tablet by mouth every 6 (six) hours if needed for severe pain for up to 5 days. Moderate persistent asthma 10/24/2024 Assessment & Plan [...] to improve or worsening symptoms. COPD exacerbation ([facility]) 08/26/2024 Assessment & Plan (08/26/2024 10:16 AM EDT): No evidence of respiratory distress. SaO2 97% on RA Wheezing improved with albuterol tx -Treat for COPD exacerbation with prednisone and doxy -ER precautions discussed Severe obesity (BMI 35.0-39.9) with comorbidity ([facility]) 07/07/2024 Dental caries 01/29/2023 Healthcare maintenance 12/29/2022 Overview (12/29/2022): Mammo: Ordered 12/2022 Pap:s/p ADRIÁN C-scope: Referred 12/2022 BMD: Routine Immunizations: Tobacco use 12/29/2022 Overview (01/02/2023): Declines cessation at this time Assessment & Plan (08/26/2024 9:20 AM EDT): Agrees to Collaborative Drug Therapy Managment Program with our JENNIFER Franco referral. Placed 08/25/24 Substance abuse in remission ([facility]) Overview (12/29/2022): Stable on suboxone Palpitations 12/29/2022 Overview (01/02/2023): EKG in office WNL Will check initial labs and refer to cardiology for further eval Hyperlipidemia 12/29/2022 Depressive disorder 12/04/2022 Overview (12/29/2022): Established with therapist and psychiatrist Prazosin Amitriptyline Perphenazine Venlafaxine Duloxetine Depakote Seizure disorder ([facility]) 12/04/2022 Overview (12/29/2022): Keppra Started [...] Calcium oxalate calculus 12/04/2022 Unstable angina pectoris ([facility]) 12/04/2022 12/29/2022 Chronic back pain 12/04/2022 12/29/2022 Kidney stone 03/30/2022 12/29/2022 Panic attack 11/06/2017 12/29/2022 Severe recurrent major depre ssion without psychotic features ([facility]) 11/06/2017 12/29/2022 Encounters * This document contains information received from the source organization and may not represent a complete record from that organization. Date Type Department Care Team Description 04/06/2025 1:45 PM EST Office Visit [facility] [address] [place] [phone] Heide Priest FNP Essential hypertension (Primary Dx); Rib pain; Visual disturbance 04/06/2025 Travel 04/03/[address] [address] Heide Priest FNP chart prep 04/01/[address] [address] Heide Priest FNP Durable Medical Equipment 03/27/2025 11:15 AM EST Office Visit [address] [place] [address] Sujey Mast NP Rib pain (Primary Dx); History of root canal procedure 03/27/2025 Travel 03/26/2025 Telephone [facility] [place] [address] Sujey Mast NP Chart Prep 03/25/[address] [address] Heide Priest FNP Nurse Triage 03/22/2025 Orders Only [facility] External Provider, [facility] 03/12/2025 3:30 PM EDT Office Visit [facility] [place] [address] Shaylee García MD Uncomplicated opioid dependence (CMS/[facility]) ([facility]) (Primary Dx) 03/12/2025 Travel 03/11/2025 Patient Outreach [address] [address] Heide Priest FNP Care Coordination ([facility]/W [facility] f/u, program graduation ) 03/05/2025 Refill [facility] [place] [address] Shaylee García MD Opioid type dependence, continuous (CMS/HCC) ([facility]) 02/20/2025 11:30 AM EDT Office Visit [facility] [address] Heide Priest FNP Essential hypertension (Primary Dx); Mixed hyperlipidemia; Current moderate episode of major depressive disorder without prior episode (CMS/HCC) ([facility]); Dietary counseling; Exercise counseling; Class 3 severe obesity due to excess calories with serious comorbidity and body mass index (BMI) of 40.0 to 44.9 in adult ([facility]); Encounter for immunization; Encounter for vaccination 02/20/2025 Travel 02/19/2025 Telephone [facility] [place] [address] Heide Priest FNP chart prep 02/16/2025 Results Follow-Up [facility] [address] Heide Priest FNP Comprehensive Metabolic Panel, Lipid Panel, Standard, Hemoglobin A1c 02/12/2025 2:00 PM EDT Telemedicine [facility] [address] [place] [address] Shaylee García MD Uncomplicated opioid dependence ([facility]/HCC) (HCC) (Primary Dx) 02/12/2025 Travel 02/03/2025 Patient Outreach [facility] [address] [place] [phone] Heide Priest FNP Care Coordination ([facility] f/u call_lvm ) 02/03/2025 Refill [facility] [address] [place] [address] Shaylee García MD Opioid type dependence, continuous (CMS/HCC) 02/03/2025 Refill [facility] [address] [place] [address] Heide Priest FNP 01/19/2025 10:45 AM EDT Office Visit [facility] [address] [place] [address] Heide Priest FNP Essential hypertension (Primary Dx); Seizure disorder ([facility]); Encounter for screening mammogram for breast cancer; Encounter for screening for malignant neoplasm of colon; Class 3 severe obesity due to excess calories with serious comorbidity and body mass index (BMI) of 40.0 to 44.9 in adult 01/19/2025 Travel 01/16/[address] [address] Heide Priest FNP Chart Prep from Last 3 Months Immunizations Immunization Administration [...] Sign Reading Time Taken Comments Blood Pressure 120/86 04/06/2025 1:45 PM EST Pulse 90 04/06/2025 1:45 PM EST Temperature 36.4 C (97.6 F) 04/06/2025 1:45 PM EST Respiratory Rate 20 04/06/2025 1:45 PM EST Oxygen Saturation 97% 10/24/2024 3:53 PM EDT Inhaled Oxygen Concentration - - Weight 97.4 kg (214 lb 12.8 oz) 04/06/2025 1:45 PM EST Height 154.9 cm (5' 1 ) 04/06/2025 1:45 PM EST Body Mass Index 40.59 04/06/2025 1:45 PM EST Plan of Treatment Upcoming Encounters Date Type Department Care Team (Late st Contact Info) Description 04/23/2025 3:00 PM EST Immunization [facility] [address] [place] [address] 05/18/2025 10:30 AM EST Office Visit [facility] [address] [place] [address] [facility] [address] [place] [address] 06/04/2025 3:00 PM EST Office Visit [facility] [address] [place] [address] Shaylee García MD [address] [place] [address] Health Maintenance Due Date Last Done Comments CT Colonography 1975 Colonoscopy 1977 Colorectal Cancer Screening 1977 Dental Oral Exam 1977 Dental Prophylaxis 1977 Dental X-Ray: Full Mouth 1977 FIT DNA/Cologuard 1977 FIT 1977 FOBT 1977 Sigmoidoscopy 1977 Family Planning (PISQ) 1992 Hepatitis B Vaccines (1 of 3 - 19+ 3-dose series) 1996 Mammogram 01/24/2024 01/23/2023 Dental X-Ray: Bitewings 09/20/2024 09/20/19, 02/20/2023, 04/18/2022 Depression Monitoring 08/21/2025 02/20/2025, 025 SDOH Screening 01/09/2026 01/09/2025 Disability Screening 02/20/2026 02/20/2025 Alcohol/Substance Use Screening 03/12/2026 03/12/2025 Tobacco Screening 04/08/2026 04/08/2025 Zoster Vaccines (1 of 2) 07/29/2027 Lipid [...] Procedure Name Priority Date/Time Associated Diagnosis Comments XR RIBS 3 VIEWS RIGHT W CHEST 1 VIEW Routine 03/22/2025 11:15 PM EST POCT TANIA-14 URINE DRUG SCREEN Routine 03/12/2025 [...] Recently Relevant to Health Maintenance Results * XR Ribs 3 Views Right with Chest 1 View (03/22/2025 11:15 PM EST) Anatomical Region Laterality Modality Radiographic Rica ging 03/22/2025 11:1 5 PM EST Narrative 03/22/2025 11:17 PM EST [address] [address] XRay Report Signed Patient: Bri Berrios MR#: [id number] 100 : 1975 Acct:[id number] Age/Sex: 49 / F ADM Date: 03/22/25 Loc: HO.ED Attending Dr: Ordering Physician: Margie Rangel DO Date of Service: 03/22/25 Procedure(s): XR ribs RT min 3V w CXR1V Accession Number(s): [id number] [facility] Reason for Exam: Fall CLINICAL HISTORY: Fall 4 view, chest and right ribs Comparison: CR/MO/SR - XR CHEST 2 VIEWS - 05/22/23 01:42 EST Findings: Bones intact. No dislocations. The visualized lungs are normal. IMPRESSION: 1. No acute fractures. This document has been electronically signed by: Darby Tran MD on 03/22/2025 23:15:23 Dictated By: Darby Tran MD Signed By: <Electronically signed by Darby Tran MD in OV> 03/22/252315 DD/ 14 TD/TT: 03/22/252314 Continuous Drier Operator: Procedure Note Donotuseinterpreter, Image - 03/22/2025 [place] [address] XRay Report Signed Patient: Yahaira Berrios#: [id number] 100 : 1975Acct:[id number] Age/Sex: 49 / FADM Date: 03/22/25 Loc: HO.ED Attending Dr: Ordering Physician: Margie Rangel DO Date of Service: 03/22/25 Procedure(s): XR ribs RT min 3V w CXR1V Accession Number(s): [id number] cc: [facility] Reason for Exam: Fall CLINICAL HISTORY: Fall 4 view, chest and right ribs Comparison: CR/MO/SR - XR CHEST 2 VIEWS - 05/22/23 01:42 EST Findings: Bones intact. No dislocations. The visualized lungs are normal. IMPRESSION: 1. No acute fractures. This document has been electronically signed by: Darby Tran MD on 03/22/2025 23:15:23 Dictated By: Darby Tran MD Signed By: <Electronically signed by Darby Tran MD in OV> 03/22/252315 DD/ 14 TD/TT: 03/22/252314 Continuous Drier Operator: [facility] External Provider IMG XR PROCEDURES Edited Result - Final * (ABNORMAL) POCT TANIA-14 Urine Drug Screen [...] AM EDT) Hemoglobin A1c 5.5 <6.0 % [facility] Comment:Hemoglobin A1C Refer ence Range Adults: 4.8 - 6.0 % Non diabetic: < 6.0 % Goal: < 7.0 %Additional Action Suggested: > 8.0 %Note: Hemoglobin A1c results are invalid for patients with abnormal amounts of HbF. Blood transfusions may impact the HbA1c concentration in the patient sample. Estimated Average Glucose 111 mg/dL [facility] Comment:eAG = Estimated ave rage glucose which is %A1C expressed asaverage glucose, using the formula of the [id number] Glucose study (ADAG), Diabetes Care, Vol.31,#8,Dec. 2007 Blood Venous blood specimen / Unknown 02/16/2025 10:55 AM EDT 02/16/2025 1:24 PM EDT [facility] WINDOW CASER LAB BLOOD ORDERABLES Final Re sult [facility] [address] [place] [address] [phone] * (ABNORMAL) Lipid Panel, Standard (02/16/2025 10:55 AM EDT) Triglycerides 78 <150 mg/dL [facility] Comment:Desirable Triglyceri de: less than 150 mg/dLBorderline High Triglyceride 150-199 mg/dLHigh Triglyceride: 200-499 mg/dLVery High Triglyceride: greater than or equal to 5OO mg/dL Cholesterol 245(H) <200 mg/dL [facility] Comment:Desirable Cholestero l: less than 200 mg/dLBorderline High Cholesterol: 200-239 mg/dLHigh Cholesterol: greater than 239 mg/dL LDL Cholesterol Calculated 186(H) <100 mg/dL [facility] Comment:Desirable LDL: less than 100 mg/dLNear Optimal/Above Optimal LDL: 110- 129 mg/dLBorderline High LDL: 130-159 mg/dLHigh LDL: 160-189 mg/dLVery High LDL: greater than or equal to 190 mg/dL HDL Cholesterol 44 >40 mg/dL [facility] Comment:Desirable HDL: great er than 40 mg/dL Note: This HDL assay may give artificially low results in patients with liver disease. Blood Venous blood specimen / Unknown 02/16/2025 10:55 AM EDT 02/16/2025 1:24 PM EDT [facility] WINDOW CASER LAB BLOOD ORDERABLES Final Re sult [facility] [address] [place] [address] [phone] * (ABNORMAL) Comprehensive Metabolic Panel (02/16/2025 10:55 AM EDT) Sodium 142 135 - 145 mmol/L [facility] Potassium 3.8 3.3 - 5.1 mmol/L [facility] Chloride 107 96 - 108 mmol/L [facility] Carbon Dioxide 27 22 - 29 mmol/L [facility] Anion Gap 12 12 - 20 [facility] Urea Nitrogen (BUN) 17(H) 9 - 16 mg/dL [facility] Creatinine, Serum 0.67 0.5 - 1.4 mg/dL [facility] Estimated Glomerular Filt Rate >60 [facility] Comment:Chronic Kidney Disea se: Estimated GFR < 60 mL/min/1.47p7Ucrvph Kidney Disease: Estimated GFR < 15 mL/min/1.73m2 Glucose 78 60 - 115 mg/dL [facility] Calcium 9.2 8.4 - 10.2 mg/dL [facility] Bilirubin, Total 1.1(H) 0.0 - 1.0 mg/dL [facility] Aspartate Amino Transferase 20 5 - 31 U/L [facility] Alanine Aminotransferase 14 0 - 31 U/L [facility] Total Protein 7.1 6.5 - 8.0 g/dL [facility] Albumin Level 4.0 3.5 - 5.0 g/dL [facility] Alkaline Phosphatase 61 39 - 117 U/L [facility] Blood Venous blood specimen / Unknown 02/16/2025 10:55 AM EDT 02/16/2025 1:24 PM EDT [facility] WINDOW CASER LAB BLOOD ORDERABLES Final Re sult [facility] [address] [place] [phone] [phone] * BI Mammogram Screening Tomosynthesis Bilateral (01/23/2023 4:23 PM EDT) Anatomical Region Laterality Modality Breast Bilateral Mammography 01/23/2023 4:23 PM EDT Narrative 02/08/2023 2:45 PM EDT [facility] [address] [place] [address] [place] [address] Mammography Report Signed Patient: Bri Berrios MR#: [id number] 100 : 1975 Acct:[id number] Age/Sex: 47 / F ADM Date: 01/23/23 Loc: JOSE ANTONIO Attending Dr: Heide Priest WINDOW CASER Ordering Physician: Heide Priest WINDOW CASER Results: 1Nega tive Date of Service: 01/23/23 Follow Up: 1 Year From Orig inal Mammogram Procedure(s): MM tomosynthesis screening BI Accession Number(s): [id number] cc: Heide Priest WINDOW CASER EXAMINATION: MM SCREENING DIGITAL BREAST TOMOSYNTHESIS, BILATERAL [...] in OV> 02/08/23 1441 DD/ 1623 TD/TT: Continuous Drier Operator: Procedure Note Donotuseinterpreter, Image - 02/08/2023 [facility] [address] [place] [address] Mammography Report Signed Patient: Yahaira Berrios#: [id number] 100 : 1975Acct:[id number] Age/Sex: 47 / FADM Date: 01/23/23 Loc: JOSE ANTONIO Attending Dr: Heide Priest WINDOW CASER Ordering Physician: Heide Priest FNPResults: 1Nega tive Date of Service: 01/23/23Follow Up: 1 Year From Orig inal Mammogram Procedure(s): MM tomosynthesis screening BI Accession Number(s): [id number] cc: Heide Priest WINDOW CASER EXAMINATION: MM SCREENING DIGITAL BREAST TOMOSYNTHESIS, BILATERAL [...] in OV> 02/08/23 1441 DD/ 1623 TD/TT: Continuous Drier Operator: [facility] WINDOW CASER IMG BI PROCEDURES Final Resul t * Pap Smear (06/04/2021) Pap smear Performed, hysterectomy Result [facility] Historical Provider HEALTH MAINTENANCE Final Result * HEPATITIS C AB W/REFL TO HCV RNA, QN, PCR (03/03/2020 2:05 PM EDT) HEPATITIS C ANTIBODY NON-REACT FIDEL NON-REACT [facility] INDEX 0.02 <1.00 [facility] Comment: HCV antibody was non-reactive. There is no laboratory evidence of HCV infection. In most cases, no further action is required. However, if recent HCV exposure is suspected, a test for HCV RNA (test code 43729) is suggested. For additional information please refer to http://education.[employer]/faq/XRS92n3 (This link is being provided for informational/ educational purposes only.) HEPATITIS C ANTIBODY NON-REACT FIDEL NON-REACT FIDEL [facility] INDEX 0.02 <1.00 [facility] Comment: HCV antibody was non-reactive. There is no laboratory evidence of HCV infection. In most cases, no further action is required. However, if recent HCV exposure is suspected, a test for HCV RNA (test code 43438) is suggested. For additional information please refer to http://[employer]/faq/BCI66c8 (This link is being provided for informational/ educational purposes only.) HEPATITIS C ANTIBODY NON-REACT FIDEL NON-REACT FIDEL [facility] INDEX 0.02 <1.00 [facility] Comment: HCV antibody was non-reactive. There is no laboratory evidence of HCV infection. In most cases, no further action is required. However, if recent HCV exposure is suspected, a test for HCV RNA (test code 94939) is suggested. For additional information please refer to http://[employer]/faq/QXB78a1 (This link is being provided for informational/ educational purposes only.) 03/03/2020 2:05 PM EDT us Historical Provider MD HISTORICAL/NON ORDERABLE LABS Final Result [facility] [address] * HIV 1/2 ANTIGEN/ANTIBODY,FOURTH GENERATION W/RFL (03/03/2020 2:05 PM EDT) HIV-1/2 ANTIGEN AND ANTIBODIES, 4TH GENERATION W/ REFLEX NON-REACT FIDEL NON-REACT FIDEL [facility] Comment: HIV-1 antigen and HIV-1/HIV-2 [...] purpose. For additional information please refer to http://[employer]/faq/JKH020 (This link is being provided for informational/ [...] purpose. For additional information please refer to http://[employer]/faq/QNV246 (This link is being provided for informational/ educational purposes only.) The performance of this assay has not been clinically validated in patients less than 2 years old. HIV-1/2 ANTIGEN AND ANTIBODIES, 4TH GENERATION W/ REFLEX NON-REACT FIDEL NON-REACT FIDEL [facility] Comment: HIV-1 antigen and HIV-1/HIV-2 [...] purpose. For additional information please refer to http://[employer]/faq/XOZ209 (This link is being provided for informational/ educational purposes only.) The performance of this assay has not been clinically validated in patients less than 2 years old. 03/03/2020 2:05 PM EDT us Historical Provider LAB BLOOD ORDERABLES Viktoriya jang Result [facility] [address] from Last 3 Months or Most Recently Relevant to Health Maintenance Insurance [place] AD[place] Care Teams Atmospheric Technician Relationship Specialty Start Date End Date JeromeHeide FNP [address] [place] [address] PCP - General Family Medicine 10/16/22
--- OUTSIDE RECORDS SUMMARY | 2025-04-13 08:18 | XMS_ITS | Encounter Summary ---
Author Organization [employer] Address [address] 7[address] [place] [address] Care Team Providers Care Floor Clerk Name Role Phone Heide Priest FOUR CORNER STAYER MACHINE OPERATOR Primary Care Provider [phone] Tato Munoz Unavailable Reason for Visit * Reason Comments Med Refill Encounter Details Date Type Department Care Team ([facility] Contact Info) Description 06/07/2023 Refill [facility] [address] [place], [place] [phone] Shaylee García MD [address] [place] [address] Opioid type dependence, continuous (CMS/HCC) Social History [...] Description 04/23/2025 3:00 PM EST Immunization [facility] [address] [place] [address] 05/18/2025 10:30 AM EST Office Visit [facility] [address] [place] [address] Heide Priest FNP [address] [place] [address] 06/04/2025 3:00 PM EST Office Visit [facility] [address] [place] [address] Shaylee García MD [address] [place] [address] documented as of this encounter Visit Diagnoses Diagnosis Opioid type dependence, continuous (CMS/HCC) ([facility]) Opioid type dependence, continuous documented in this encounter Additional Health Concerns Assessment Noted Time PHQ-9 Depression Total Score: 8 12/20/19 23 10:14 AM EDT documented as of this encounter Care Teams Floor Clerk Relationship Specialty Start Date End Date Heide Priest FNP [address] [place] [address] PCP - General Family Medicine 10/16/22 Tato Munoz 01/09/25 03/11/25 documented as of this encounter
--- OUTSIDE RECORDS SUMMARY | 2025-04-13 08:18 | XMS_ITS | Encounter Summary ---
Author Organization [employer] Address [address] [facility] 7t [place] [address] Care Team Providers Care Data Entry Processor Name Role Phone Heide Priest VP OF CUSTOMER EXPERIENCE STRATEGY Primary Care Provider [phone] Tato Munoz Unavailable Reason for Visit * Reason Comments Med Refill Encounter Details Date Type Department Care Team ([facility] st Contact Info) Description 08/23/2023 Refill [facility] [address] [place], [place] [phone] Dat Royal MD [address] [place], [place] [phone] Opioid type dependence, continuous (CMS/HCC) Social History [...] Info) Description 04/23/2025 3:00 PM EST Immunization [facility] [address] [place] [address] 05/18/2025 10:30 AM EST Office Visit [facility] [address] [place] [address] Heide Priest FNP [address] [place] [address] 06/04/2025 3:00 PM EST Office Visit [facility] [address] [place] [address] Shaylee García MD [address] [place] [address] documented as of this encounter Visit Diagnoses Diagnosis Opioid type dependence, continuous (CMS/HCC) ([facility]) Opioid type dependence, continuous documented in this encounter Additional Health Concerns Assessment Noted Time PHQ-9 Depression Total Score: 8 12/20/19 23 10:14 AM EDT documented as of this encounter Care Teams Data Entry Processor Relationship Specialty Start Date End Date Heide Priest FNP [address] [place] [phone] PCP - General Family Medicine 10/16/22 Tato Munoz 01/09/25 03/11/25 documented as of this encounter
--- OUTSIDE RECORDS SUMMARY | 2025-04-13 08:18 | XMS_ITS | Encounter Summary ---
Author Organization [employer] Address [address] [facility] 7t [place] [address] Care Team Providers Care Court Deputy Name Role Phone Bria Bright [facility] Primary Care Provider Aysha hernestotamicagreer [facility] Primary Care Provider [phone] Tato Munoz Unavailable Encounter Details Date Type Department Care Team (Late Contact Info) Description 04/18/2022 Orders Only [facility] AD[facility] D[facility] [address] [place] [id number] Luciano-Vandana Ramirez, DDS [address] [place] [address] Periapical abscess without sinus (Primary Dx) Social [...] Info) Description 04/23/2025 3:00 PM EST Immunization [facility] [address] [place] [address] 05/18/2025 10:30 AM EST Office Visit [facility] [address] [place] [address] [facility] [address] [place] [address] 06/04/2025 3:00 PM EST Office Visit [facility] [address] [place], [place] [phone] Shaylee García MD [address] [place], [place] [phone] documented as of this encounter Visit Diagnoses Diagnosis Periapical abscess without sinus- Primary documented in this encounter Care Teams Court Deputy Relationship Specialty Start Date End Date Bria Bright FNP PCP - General Family Medicine 03/07/21 10/15/22 [employer] guerra FNP [address] [place] [id number] PCP - General Family Medicine 10/16/22 Tato Munoz 01/09/25 03/11/25 documented as of this encounter
--- OUTSIDE RECORDS SUMMARY | 2025-04-13 08:18 | XMS_ITS | Encounter Summary ---
Author Organization [employer] Address [address] [facility] 7t [place] [address] Care Team Providers Care Media Relations Coordinator Name Role Phone Cem [facility] Primary Care Provider [phone] Tato Munoz Unavailable Reason for Visit * Reason Onset Date Comments Nurse Triage 10/08/2024 Encounter Details Date Type Department Care Team ([facility] st Contact Info) Description 10/08/2024 Telephone [facility] MED[facility] [address] [place] [address] [place], [facility] [address] [place] [address] Nurse Triage Social History Tobacco Use Types [...] Miscellaneous Notes * Telephone Encounter - Becky Foster - 10/08/2024 10:35 AM EDT Symptom: [...] Info) Description 04/23/2025 3:00 PM EST Immunization [facility] [address] [place] [address] 05/18/2025 10:30 AM EST Office Visit [facility] [address] [place] [phone] [place], [employer] [address] [place] [address] 06/04/2025 3:00 PM EST Office Visit [facility] [address] [place] [phone] Shaylee García MD [address] [place] [address] documented as of this encounter Visit Diagnoses Not on filedocumented in this encounter Additional Health Concerns Assessment Noted Time PHQ-9 Depression Total Score: 8 12/20/19 23 10:14 AM EDT documented as of this encounter Care Teams Media Relations Coordinator Relationship Specialty Start Date End Date [place] RAKEL Jaeger [address] [place] [id number] PCP - General Family Medicine 10/16/22 Tato Munoz 01/09/25 03/11/25 documented as of this encounter
--- NOTE | 2025-04-13 09:18 | MHC.OFFVISWM ---
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: Yes Slasher Tender Services: Slasher Tender Present Information Interpreted: clinical only Allergies azithromycin (AZITHROMYCIN) Allergy (Severe, Verified 04/13/25 09:18) ANGIOEDEMA pork derived (porcine) (PORK DERIVED (PORCINE)) Allergy (Unknown, Verified 04/13/25 09:18) HIVES topiramate (From TOPAMAX) Allergy (Unknown, Verified 04/13/25 09:18) HIVES tramadol (TRAMADOL) Allergy (Unknown, Verified 04/13/25 09:18) CONVULSIONS Medication List - Last Reconciled 04/13/25 by Lefty Thornton MD albuterol sulfate 90 mcg/actuation (Ventolin HFA) 2 puffs inhalation Q4-6H PRN atorvastatin 20 mg PO DAILY buprenorphine-naloxone 8-2 mg (Suboxone) 20 mg sublingual QAM hydroxyzine HCl 50 mg PO QID PRN ibuprofen 600 mg PO Q8H PRN ipratropium bromide 17 mcg/actuation (Atrovent HFA) 2 puffs inhalation Q8H lidocaine 4% 1 patch topical DAILY PRN olmesartan (Benicar) 5 mg PO DAILY HPI Comments Details: Previous weight loss efforts: self diets and exercise Wakes up: 6am, Sleeps: 10pm Breakfast: skips Lunch: 12pm (toast, eggs, oatmeal) Dinner: 6pm (root vegetables, chicken, fish) Snacks: 4pm (orange), 8-9pm (granola bar, cereal) Exercise: has home treadmill (does not incline, tracks calories) Beverages: Coffee: (2 cups/d with Stevia), Tea: 1 cup/d with stevia, Soda: none, Juice: 6oz/d, ETOH: none PFSH Medical History (Updated 04/13/25 @ 09:32 by Lefty Thornton MD) Opioid abuse DJD (degenerative joint disease) Anxiety Depression Asthma Hyperlipidemia Hypertension BMI 39.0-39.9,adult Obesity Palpitation Essential hypertension Surgical History History of back surgery Hx of wisdom tooth extraction Hx of colonoscopy Hx of cholecystectomy Hx of hysterectomy Family History Mother Myocardial infarction Father Myocardial infarction Social History Alcohol intake: former Patient Tobacco Use Status: Former Tobacco user Substance Use Type: Marijuana Physical Exam GI Inspection: Yes normal to inspection (Mixed body habitus), Yes incision (well healed) and Yes obesity Palpation (GI): Soft to palpation Extrem Right lower extremity: normal to inspection Left lower extremity: normal to inspection Assessment & Plan Assessment & Plan (1) Obesity: Code(s): E66.9 - Obesity, unspecified Category: Medical Qualifiers: Obesity type: due to excess calories Obesity classification: adult class 2 (BMI 35 - 39.9) Serious obesity comorbidity presence: with serious comorbidity Body mass index: BMI 39.0-39.9 Qualified Code(s): E66.812 - Obesity, class 2; Z68.39 - Body mass index [BMI] 39.0-39.9, adult Plan: 1.? Plan for lap sleeve gastrectomy. If diaphragmatic or ventral hernias are present at time of surgery, these will be repaired laparoscopically as well. I emphasized the importance of close follow-up, adherence to instructions and good communication. The surgery does not replace the need to change your lifestlyle which is the cause of the obesity problem. The surgery provides the motivation to try again to change your lifestyle, it reduces the appetite and make the transition to a better lifestyle easier and doubles the amount of weight you would lose compared to doing the lifestyle change without the surgery. You will need to be on a liquid diet with protein shakes for 2 weeks before surgery to maximize weight loss and boost your nutritional status to recover better from surgery and also for the first two weeks after surgery to let the stomach heal before we introduce other foods. After the first 2 weeks we will introduce protein bars and soft foods like scrambled eggs, cottage cheese and yogurt and after the 6th week will introduce meat, fish and cooked vegetables in small amounts. Over time you should be able to eat everything in small amounts. Side effects like nausea, vomiting, heartburn or abdominal pain are not common in the practice unless you are not following in the practice. This operation requires lifetime commitment to following in our practice and communication with me. You will much less weight and experience side effects if you don?t communicate or not following in the practice. Complications are rare and in our practice is about 1/10 of the national average. However, you can develop bleeding that may require transfusion (hasn?t happened for year in the practice), you may from complications (we did not have any deaths in the practice) and infections. Infections are usually a result of breakdown in communication or not understanding or following directions correctly. They are difficult to treat, they can happen during the first 6 weeks, they may require to be in the hospital for weeks or even months, not being able to eat by mouth and you may have drains and surgeries to try and correct the issue. Other risks and complications include possible conversion to an open procedure, leaks, small bowel obstruction, blood clots, cardiac, or pulmonary complications, as half-way complications such as ulcers, insufficient weight loss and vitamin deficiencies. 2. Nutritional counseling. Start with one premade PREMIER protein (buy at [employer] or [employer]) shake (mix 4oz of Premier mixed with 4oz low fat unsweetened almond milk each) at 7am-9am, one protein bar (Fit Crunch protein bar, buy at [employer], or [employer]) at 10am-12pm, another premade PREMIER protein shake (mix 4oz of Premier mixed with 4oz low fat unsweetened almond milk each) at 1pm-3pm, another [employer] protein bar at 4pm-6pm, dinner at 7pm (8 forks of protein and 8 forks of salad/vegetables) and another HALF [employer] bar at 9pm-10pm So you do 2 protein shakes, 2.5 protein bars and one meal per day. Meal to include lean meat (beef, fish, pork, turkey, chicken), or [place] citizen yogurt, or egg whites, or beans with a salad with olive oil and fruits (berries, pears, apples, kiwi). Avoid salt, breads, potatoes, rice, pasta, desserts. 3. Each shake would be drunk slowly, like coffee in a period of 2 hours. 4. Cut each bar in 4 pieces and eat each piece in 30min ?to make each bar last 2 hours. 5. I emphasized the importance of measuring accurately the food portion and measure it when serving the food in plate 6. The meal portions include 8 full-size forks of meat and 8 full-size forks of salad. You always eat the meat portion but you can replace up to 4 forks for salad/vegetables with rice, potatoes or pasta, or a fruit ?if you like. The less you do it the better weight loss will be. 7. One full-size fork is what it can be scooped on the fork without falling aside and not what can be bit with the fork. Use regular forks like those you find in a typical restaurant. 8.? Please buy the body composition scale we discussed and send me weight measurements as soon as possible and then once a week. Always include your diet and exercise plan. 9. Start treadmill with a speed of 3.5 mph until calorie goal is met. Goal is to burn 2000 calories per week on exercise, which means either 300 calories daily. Start also weight exercises with 20-30lbs for chest/shoulders/abdomen and 40-50lbs for thighs doing 2 sets of 15 repetitions each. 10. Goal is to lose at least 1.5-2lbs per week 11. Goal to lose 10% of your weight before surgery, which is about 20lbs. Ultimate weight goal: 188lbs before surgery 12. Please follow the diet plan exactly without any change. If you don't like something about the plan or you feel hungry you need to communicate with me so I can help you revise the plan. You should not change the plan yourself 13. To be scheduled for EGD to assess the stomach's anatomy. The possibility of biopsies was discussed. Patient needs to avoid use of NSAIDs and aspirin for 1 week prior to EGD. You must be on liquids only the day before your endoscopy. Risks of perforation and bleeding was discussed with the patient. This will be an outpatient procedure with IV sedation. Orders: Orders Vitamin A Today E66.812 - Obesity, class 2, E78.5 - Hyperlipidemia, unspecified, I10 - Essential (primary) hypertension, Z68.39 - Body mass index [BMI] 39.0-39.9, adult Vitamin B1 Today E66.812 - Obesity, class 2, E78.5 - Hyperlipidemia, unspecified, I10 - Essential (primary) hypertension, Z68.39 - Body mass index [BMI] 39.0-39.9, adult Vitamin D 25-OH Total Today E66.812 - Obesity, class 2, E78.5 - Hyperlipidemia, unspecified, I10 - Essential (primary) hypertension, Z68.39 - Body mass index [BMI] 39.0-39.9, adult Complete Blood Count Auto Diff Today E66.812 - Obesity, class 2, E78.5 - Hyperlipidemia, unspecified, I10 - Essential (primary) hypertension, Z68.39 - Body mass index [BMI] 39.0-39.9, adult Zinc Today E66.812 - Obesity, class 2, E78.5 - Hyperlipidemia, unspecified, I10 - Essential (primary) hypertension, Z68.39 - Body mass index [BMI] 39.0-39.9, adult IRON PROFILE Today E66.812 - Obesity, class 2, E78.5 - Hyperlipidemia, unspecified, I10 - Essential (primary) hypertension, Z68.39 - Body mass index [BMI] 39.0-39.9, adult XR chest 2V Today E66.812 - Obesity, class 2, E78.5 - Hyperlipidemia, unspecified, I10 - Essential (primary) hypertension, Z68.39 - Body mass index [BMI] 39.0-39.9, adult Comprehensive Met. Panel Today E66.812 - Obesity, class 2, E78.5 - Hyperlipidemia, unspecified, I10 - Essential (primary) hypertension, Z68.39 - Body mass index [BMI] 39.0-39.9, adult TSH reflex Free T4 Today E66.812 - Obesity, class 2, E78.5 - Hyperlipidemia, unspecified, I10 - Essential (primary) hypertension, Z68.39 - Body mass index [BMI] 39.0-39.9, adult Hemoglobin A1c Today E66.812 - Obesity, class 2, E78.5 - Hyperlipidemia, unspecified, I10 - Essential (primary) hypertension, Z68.39 - Body mass index [BMI] 39.0-39.9, adult Prothrombin Time INR Today E66.812 - Obesity, class 2, E78.5 - Hyperlipidemia, unspecified, I10 - Essential (primary) hypertension, Z68.39 - Body mass index [BMI] 39.0-39.9, adult Lipid Panel Today E66.812 - Obesity, class 2, E78.5 - Hyperlipidemia, unspecified, I10 - Essential (primary) hypertension, Z68.39 - Body mass index [BMI] 39.0-39.9, adult Type and Screen Today E66.812 - Obesity, class 2, E78.5 - Hyperlipidemia, unspecified, I10 - Essential (primary) hypertension, Z68.39 - Body mass index [BMI] 39.0-39.9, adult Vitamin B12 Today E66.812 - Obesity, class 2, E78.5 - Hyperlipidemia, unspecified, I10 - Essential (primary) hypertension, Z68.39 - Body mass index [BMI] 39.0-39.9, adult C Reactive Protein Today E66.812 - Obesity, class 2, E78.5 - Hyperlipidemia, unspecified, I10 - Essential (primary) hypertension, Z68.39 - Body mass index [BMI] 39.0-39.9, adult Partial Thromboplastin Time Today E66.812 - Obesity, class 2, E78.5 - Hyperlipidemia, unspecified, I10 - Essential (primary) hypertension, Z68.39 - Body mass index [BMI] 39.0-39.9, adult Ferritin Today E66.812 - Obesity, class 2, E78.5 - Hyperlipidemia, unspecified, I10 - Essential (primary) hypertension, Z68.39 - Body mass index [BMI] 39.0-39.9, adult Insulin Today E66.812 - Obesity, class 2, E78.5 - Hyperlipidemia, unspecified, I10 - Essential (primary) hypertension, Z68.39 - Body mass index [BMI] 39.0-39.9, adult US abdomen comp w elastography Today E66.812 - Obesity, class 2, E78.5 - Hyperlipidemia, unspecified, I10 - Essential (primary) hypertension, Z68.39 - Body mass index [BMI] 39.0-39.9, adult ECG 12 lead EKG Today E66.812 - Obesity, class 2, E78.5 - Hyperlipidemia, unspecified, I10 - Essential (primary) hypertension, Z68.39 - Body mass index [BMI] 39.0-39.9, adult FL upper GI w air Today E66.812 - Obesity, class 2, E78.5 - Hyperlipidemia, unspecified, I10 - Essential (primary) hypertension, Z68.39 - Body mass index [BMI] 39.0-39.9, adult Referrals Behavioral Health Referral E66.812 - Obesity, class 2, E78.5 - Hyperlipidemia, unspecified, I10 - Essential (primary) hypertension, Z68.39 - Body mass index [BMI] 39.0-39.9, adult
== END 2025-04-13 09:55 | disposition home or self-care (01) ==
PROVIDERS: PCP Registered Nurse; Visit Provider Surgery
DX: E66.812 Obesity, class 2 (principal); Z68.39 Body mass index [BMI] 39.0-39.9, adult
CPT/HCPCS: 99204

== ENCOUNTER 2025-04-13 08:08 | Outpatient (REF) | payer MEDICAID, SELFPAY ==
--- NOTE | ~2025-04-13 | XR_ITS ---
EXAMINATION: XR CHEST CLINICAL INFORMATION: Z68.39 - Body mass index [BMI] 39.0-39.9, adult COMPARISON: March 22, 2025. TECHNIQUE: PA and lateral views. FINDINGS: 3 mm calcified pulmonary nodule, lingula. Pulmonary reticular pattern. No consolidation, pleural effusion or pneumothorax. Cardiomediastinal silhouette size is normal. Mid thoracic dextroconvex curvature. Multilevel spondylosis, mild to moderate. Vascular clips right upper abdomen likely cholecystectomy. XR/XR chest 2V IMPRESSION: 3 mm granuloma, lingula. No acute airspace disease. Dextroconvex scoliosis and mild multilevel spondylosis. Electronically signed by: Earnest Feliciano MD 04/13/2025 11:26 AM MIRIAM
--- NOTE | 2025-04-13 10:21 | ECG_ITS ---
Test Reason : OBESITY Blood Pressure : */* mmHG Vent. Rate : 49 BPM Atrial Rate : 49 BPM P-R Int : 158 ms QRS Dur : 78 ms QT Int : 424 ms P-R-T Axes : -5 29 41 degrees QTcB Int : 383 ms Sinus bradycardia Otherwise normal ECG When compared with ECG of 30-Sep-2023 21:45, No significant change was found Referred By: Lefty Thornton Electronically Signed By: PERFECTO DE LA FUENTE
[2025-04-13 10:54] LABS: MANUAL DIFF FLAG NO
[2025-04-13 11:15] LABS: INTERNATIONAL NORM RATIO 1.0 (0.9-1.1); Prothrombin Time 12.4 SEC (11.2-13.5)
[2025-04-13 11:17] LABS: Hematocrit 42.0 % (37.0-47.0); Hemoglobin 13.8 g/dl (12.0-16.0); Imm Gran Abs Auto 0.03 X10*3/uL (0.00-0.03); Imm Gran Pct Auto 0.4 % (0.0-0.4); Lymphocytes Absolute Auto 2.4 X10*3/uL (1.2-4.9); Mean Corpuscular HGB Conc 32.9 g/dl (31.0-35.0); Mean Corpuscular Hemoglobin 29.6 pg (27.0-33.0); Mean Corpuscular Volume 89.9 fL (80.0-98.0); NRBC Abs Auto 0.000 X10*3/uL (0.0-0.012); NRBC Pct Auto 0.0 /100WBC (0.0-0.2); Partial Thromboplastin Time 29.5 SEC (26.7-34.1); Platelet Count 213 X10*3/uL (160-400); Red Blood Count 4.67 X10*6/uL (4.20-5.50); White Blood Count 7.5 X10*3/uL (4.8-10.8)
[2025-04-13 11:50] LABS: Hemoglobin A1C 148.8258 umol/L
[2025-04-13 12:14] LABS: Alanine Aminotransferase 16 U/L (0-31); Albumin Level 4.2 g/dL (3.5-5.0); Alkaline Phosphatase 70 U/L (39-117); Anion Gap 11 (12-20); Aspartate Amino Transferase 19 U/L (5-31); Blood Urea Nitrogen 16 mg/dL (9-16); Calcium 8.9 mg/dL (8.4-10.2); Carbon Dioxide 24 mmol/L (22-29); Chloride 111 mmol/L (96-108); Cholesterol 138 mg/dL (<200); Estimated Glomerular Filt Rate > 60; Ferritin 169 ng/mL (10-250); HDL Cholesterol 43 mg/dL (>40); Iron 56 mcg/dL (30-160); Percent Iron Saturation 26 % (15-50); Potassium 4.1 mmol/L (3.3-5.1); Sodium 142 mmol/L (135-145); Total Iron Binding Capacity 219 mcg/dL (228-428); Total Protein 7.0 g/dL (6.5-8.0); Triglycerides 63 mg/dL (<150); Unsaturated Iron Binding 163 ug/dL
[2025-04-13 12:17] LABS: Vitamin B12 314 pg/mL (200-900)
== END 2025-04-13 08:09 | disposition home or self-care (01) ==
LOC: HO.XRAY 08:08
PROVIDERS: PCP Registered Nurse; Visit Provider Surgery
DX: I10 Essential (primary) hypertension (principal); E66.812 Obesity, class 2; Z68.39 Body mass index [BMI] 39.0-39.9, adult; E78.5 Hyperlipidemia, unspecified
CPT/HCPCS: 36415; 71046; 80053; 80061; 82306; 82607; 82728; 83036; 83525; 83540; 84425; 84443; 84590; 84630; 85025; 85610; 85730; 86140; 86850; 86900; 86901; 93005; 99202

== ENCOUNTER → 2025-04-13 10:21 | Outpatient (BNV) | payer MEDICAID, SELFPAY | PROVIDERS: PCP Registered Nurse; Visit Provider Internal Medicine | DX: R00.1 Bradycardia, unspecified (principal) | CPT/HCPCS: 93010 ==

== ENCOUNTER → 2025-04-13 10:52 | Outpatient (BNV) | payer MEDICAID, SELFPAY | PROVIDERS: PCP Registered Nurse; Visit Provider Radiology Diagnostic Radiology | DX: J84.10 Pulmonary fibrosis, unspecified (principal); M47.814 Spondylosis without myelopathy or radiculopathy, thoracic region; M41.34 Thoracogenic scoliosis, thoracic region | CPT/HCPCS: 71046 ==